=== PATIENT | female | born 2000 | race Caucasian/White ===

== ENCOUNTER 2023-08-01 11:28 | Emergency (ER) | payer MEDICAID, SELFPAY ==
[2023-08-01 11:39] VITALS: PULSE 66; RESP 20; TEMP 36.2; O2SAT 100
== END 2023-08-01 12:14 | disposition left against medical advice (07) ==
LOC: ANHED 12:04
DX: R10.31 Right lower quadrant pain (principal)
CPT/HCPCS: 99199

== ENCOUNTER 2023-08-11 00:20 | Emergency (ER) | payer BC, OTHER, SELFPAY ==
[2023-08-11 00:21] VITALS: BP 121/61; PULSE 62; RESP 15; TEMP 36.3; O2SAT 100
[2023-08-11 03:37] VITALS: BP 111/61; PULSE 71; RESP 15; O2SAT 100
[2023-08-11 03:46] LABS: Basophils Absolute Auto 0.1 K/mm3 (0.0-0.1); Basophils Percent Auto 0.7 % (0.2-1.2); Eosinophils Absolute Auto 1.3 K/mm3 (0-0.3); Eosinophils Percent Auto 11.4 % (0-4.4); Hematocrit 41.5 % (37.0-47.0); Hemoglobin 12.9 g/dL (12.0-15.0); Immature Granulocyte Absolute 0.04 K/mm3 (0.00-0.031); Immature Granulocyte Percent A 0.4 % (0-0.5); Lymphocytes Absolute Auto 3.34 K/mm3 (0.9-3.2); Lymphocytes Percent Auto 29.6 % (18.3-44.2); Mean Corpuscular HGB Conc 31.1 g/dl (32-36); Mean Corpuscular Hemoglobin 26.8 pg (26-34); Mean Corpuscular Volume 86.3 fl (80-100); Mean Platelet Volume 10.1 fl (7.4-10.4); Monocytes Absolute Auto 0.7 K/mm3 (0.1-0.6); Monocytes Percent Auto 6.5 % (2.6-8.5); Neutrophils Absolute Auto 5.8 K/mm3 (1.3-6.7); Neutrophils Percent Auto 51.4 % (45.5-73.1); Platelet Count Result 296 k/mm3 (150-375); Red Blood Count 4.81 M/mm3 (4.2-5.4); Red Cell Distribution Width 14.6 % (11.5-14.5); White Blood Count 11.3 K/mm3 (4.5-10.0)
[2023-08-11 03:48] LABS: Appearance Urine Clear (Clear); Bilirubin Urine Negative (Negative); Blood Urine Negative (Negative); Color Urine Yellow (Yellow); Glucose Urine UA Negative (Negative); Ketones Urine Negative (Negative); Leukocyte Esterase Ur Negative LEU/UL (Negative); Nitrate Urine Negative (Negative); Protein Urine Negative (Negative); Specific Grav Ur 1.027 (1.001-1.035); pH Urine 6.5 (5.0-9.0)
[2023-08-11 03:49] LABS: Add Urine Microscopic? NO
[2023-08-11 04:14] LABS: Beta HCG Quantitative < 2.39 mIU/ML
[2023-08-11 04:27] LABS: Alanine Aminotransferase 22 U/L (6-35); Albumin Level 4.1 g/dL (3.5-5.1); Alkaline Phosphatase 28 U/L (38-126); Anion Gap 5 mmol/L (8-16); Aspartate Amino Transferase 27 U/L (14-36); Bilirubin,Total 0.4 mg/dL (0.2-1.3); Blood Urea Nitrogen 22 mg/dL (7-17); Calcium 9.3 mg/dL (8.4-10.2); Carbon Dioxide 27 mmol/L (22-30); Chloride 105 mmol/L (98-107); Estimated CRCL calculation 109 ml/min; Estimated Glomerular Filt Rate > 60; Glucose 80 mg/dL (65-110); Lipase 91 U/L (23-300); Potassium 4.3 mmol/L (3.4-5.0); Sodium 137 mmol/L (137-145)
[2023-08-11 05:43] VITALS: BP 106/65; PULSE 78; RESP 20; O2SAT 98
--- NOTE | 2023-08-11 05:49 | ED.GENADULT ---
HPI - General Adult General Chief complaint: Abdominal Pain Stated complaint: RLQ abd pain, 2 positive preg tests at home Time Seen by Provider: 08/11/23 05:28 History of Present Illness HPI narrative: patient is a 23-year-old female who presents emergency department with chief complaint of right lower quadrant abdominal pain. Patient reports that she has been having discomfort in the right lower area of her abdomen and reports that pain is sharp patient reports that she performed 2 at-home test that were positive. The patient does report that she has had miscarriages before in the past and also has history of PCOS Related Data Allergies Allergy/AdvReac Type Severity Reaction Status Date / Time amoxicillin Allergy Mild Nausea Verified 11/05/17 21:28 clavulanic acid Allergy Mild Nausea Verified 11/05/17 21:28 ziprasidone Allergy Unknown VOMITING/RA Verified 11/05/17 21:28 SH doxycycline AdvReac Other Verified 08/11/23 00:35 AMOXICILLIN TRIHYDRATE Allergy Unknown Nausea and Uncoded 08/11/23 00:35 Vomiting Review of Systems Review of Systems: A 10 system review of systems was completed on the patient and is negative except for what is stated in the HPI. Nursing and ancillary documentation was reviewed. Exam Narrative: GENERAL: Well-appearing, well-nourished, and in no acute distress. HEAD: Normocephalic, atraumatic. EYES: PERRLA and EOMI. ENT: Nares clear, no rhinorrhea or epistaxis. Mucous membranes moist. NECK: Supple. CHEST: Clear to auscultation. No respiratory distress. HEART: Regular rate and rhythm. No murmur heard. Normal peripheral pulses. ABDOMEN: Soft, tenderness to palpation of the right lower quadrant, nondistended, normal active bowel sounds. EXTREMITIES: Normal range of motion. No edema. SKIN: Warm, dry, no rash. NEURO: No focal deficits. Alert and oriented x3. PSYCH: Normal mood and affect. Course Vital Signs Vital signs: Vital Signs Temperature 36.3 C L 08/11/23 00:21 Pulse Rate 62 08/11/23 00:21 Respiratory Rate 15 08/11/23 00:21 Blood Pressure 121/61 08/11/23 00:21 Pulse Oximetry 100 08/11/23 00:21 Oxygen Delivery Room Air 08/11/23 00:21 Temperature 36.3 C L 08/11/23 00:21 Pulse Rate 78 08/11/23 05:43 Respiratory Rate 20 08/11/23 05:43 Blood Pressure 106/65 08/11/23 05:43 Pulse Oximetry 98 08/11/23 05:43 Oxygen Delivery Room Air 08/11/23 00:21 Medical Decision Making MDM Narrative Medical decision making narrative: differential diagnosis includes appendicitis, diverticulitis, colitis, ovarian cyst, ovarian torsion, , ectopic laboratory studies were obtained on the patient showed a bedside test is negative and a serum HCG of negative. White blood cell count was 11.3 electrolytes are within normal limits liver enzymes showed a normal bilirubin normal AST normal ALT and normal alkaline phosphatase lipase is normal at 91 urinalysis was negative given the patient is not plan was to perform a CT scan of the abdomen pelvis did her right lower quadrant abdominal tenderness. The patient states that she knows this is her ovarian cyst and reports that she does not want to stay for a CT scan. The patient was advised that she should stay for to evaluate as this could be a potentially surgical problem or potentially life-threatening problem. The patient expressed understanding this and will be leaving against medical advice Vital Signs Vital Signs: Vital Signs Temperature 36.3 C L 08/11/23 00:21 Pulse Rate 62 08/11/23 00:21 Respiratory Rate 15 08/11/23 00:21 Blood Pressure 121/61 08/11/23 00:21 Pulse Oximetry 100 08/11/23 00:21 Oxygen Delivery Room Air 08/11/23 00:21 Temperature 36.3 C L 08/11/23 00:21 Pulse Rate 78 08/11/23 05:43 Respiratory Rate 20 08/11/23 05:43 Blood Pressure 106/65 08/11/23 05:43 Pulse Oximetry 98 08/11/23 05:43 Oxygen De
== END 2023-08-11 06:07 | disposition left against medical advice (07) ==
PROVIDERS: Emergency Provider Emergency Medicine
DX: R10.31 Right lower quadrant pain (principal); Z32.02 Encounter for pregnancy test, result negative
CPT/HCPCS: 36415; 80053; 81003; 81025; 83690; 84702; 85025; 99283

== ENCOUNTER 2023-10-17 15:24 | Emergency (ER) | payer BC, OTHER, SELFPAY ==
--- NOTE | ~2023-10-17 | XR_ITS ---
EXAMINATION: XR chest 2V DATE: 10/17/2023 16:52 INDICATION: Cough. TECHNIQUE: Frontal and lateral views of the chest were obtained. COMPARISON: None. FINDINGS: There is mild atelectasis in right middle lobe. No pleural effusion or pneumothorax. The he art size is normal. IMPRESSION: 1. Mild atelectasis in right middle lobe. Reviewed, dictated and finalized at location E.
--- NOTE | ~2023-10-17 | US_ITS ---
EXAMINATION: US pelvic complete w TV DATE: 10/17/2023 21:11 INDICATION: Left ovarian mass. TECHNIQUE: Multiple transabdominal and transvaginal sonographic images of the pelvis were obtained. COMPARISON: CT abdomen and pelvis 10/17/2023 FINDINGS: TRANSABDOMINAL ULTRASOUND: The uterus measures 8.1 x 3.9 x 3.6 cm. There is no free fluid in the pelvis. TRANSVAGINAL ULTRASOUND: The endometrial complex measures 8 mm in thickness. The right ovary measures 2.9 x 2.5 x 2.1 cm. The left ovary measures 4.8 x 3.7 x 4.1 cm. There is a 3.7 cm mass of mixed echogenicity in left ovary. T here is normal vascular flow in the ovaries. IMPRESSION: 1. 3.7 cm mass in left ovary, most likely a hemorrhagic cyst. Pelvis ultrasound is recommended in 6-1 2 weeks. Reviewed, dictated and finalized at location E. IMPRESSION: 1. 3.7 cm mass in left ovary, most likely a hemorrhagic cyst. Pelvis ultrasound is recommended in 6-12 weeks.
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
[2023-10-17 15:30] VITALS: BP 138/88; PULSE 115; RESP 20; TEMP 36.3; O2SAT 95
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
[2023-10-17] MEDS: ONDANSETRON INJ 4 MG/2 ML VIAL IV PUSH (16:37)
[2023-10-17] MEDS: MORPHINE SULFATE (*CRX) 4 MG/ML INJ IV PUSH ×3 (16:37→21:38)
[2023-10-17 16:38] LABS: Basophils Percent Auto 0.3 % (0.2-1.2); Eosinophils Absolute Auto 0.1 K/mm3 (0-0.3); Eosinophils Percent Auto 1.9 % (0-4.4); Hematocrit 37.4 % (37.0-47.0); Hemoglobin 11.6 g/dL (12.0-15.0); Immature Granulocyte Absolute 0.02 K/mm3 (0.00-0.031); Immature Granulocyte Percent A 0.3 % (0-0.5); Lymphocytes Percent Auto 27.9 % (18.3-44.2); Mean Corpuscular Hemoglobin 25.3 pg (26-34); Mean Corpuscular Volume 81.7 fl (80-100); Mean Platelet Volume 9.7 fl (7.4-10.4); Monocytes Absolute Auto 0.5 K/mm3 (0.1-0.6); Monocytes Percent Auto 7.2 % (2.6-8.5); Neutrophils Absolute Auto 4.2 K/mm3 (1.3-6.7); Neutrophils Percent Auto 62.4 % (45.5-73.1); Platelet Count Result 401 k/mm3 (150-375); Red Blood Count 4.58 M/mm3 (4.2-5.4); Red Cell Distribution Width 13.4 % (11.5-14.5); White Blood Count 6.8 K/mm3 (4.5-10.0)
[2023-10-17 16:48] LABS: INR 0.9; Prothrombin Time 12.7 Seconds (11.1-14.7)
[2023-10-17 16:49] LABS: Lactic Acid Reflex 1.3 mmol/L (0.7-2.0); Partial Thromboplastin Time 33.1 Seconds (22.3-36.8)
[2023-10-17 16:56] LABS: Alanine Aminotransferase 16 U/L (6-35); Albumin Level 4.3 g/dL (3.5-5.1); Alkaline Phosphatase 29 U/L (38-126); Anion Gap 10 mmol/L (4-12); Aspartate Amino Transferase 21 U/L (14-36); Bilirubin,Total 0.4 mg/dL (0.2-1.3); Blood Urea Nitrogen 16 mg/dL (7-17); CRP 3.8 mg/dL (<1.0); Calcium 9.8 mg/dL (8.4-10.2); Carbon Dioxide 27 mmol/L (22-30); Chloride 105 mmol/L (98-107); Estimated CRCL calculation 132 ml/min; Estimated Glomerular Filt Rate > 60; Glucose 110 mg/dL (65-110); Lipase 101 U/L (23-300); Potassium 3.9 mmol/L (3.4-5.0); Sodium 142 mmol/L (137-145)
[2023-10-17 17:13] LABS: Influenza A QL RT-PCR Negative (Negative); Influenza B QL RT-PCR Negative (Negative); RSV RNA, RT-PCR Negative (Negative); SARS-CoV-2 RNA PCR Negative (Negative)
[2023-10-17] MEDS: HYDROmorphone HCL INJ (*CRX) 1 MG/ML SYR IV PUSH ×2 (17:44→19:40)
[2023-10-17] MEDS: LACTATED RINGERS 1,000 ML 999 ML IV CONT (17:44)
[2023-10-17 18:46] VITALS: BP 142/83; PULSE 75; RESP 3; O2SAT 96
[2023-10-17 18:46] LABS: SPREG INTERNAL CONTROL Positive; Serum Qual hCG Negative
[2023-10-17 19:01] VITALS: BP 127/74; PULSE 71; RESP 16; O2SAT 100
[2023-10-17 20:13] LABS: Appearance Urine Turbid (Clear); Bacteria Urine 4+ /hpf; Bilirubin Urine Negative (Negative); Blood Urine Negative (Negative); Calcium Oxalate Crystals Urine Present /hpf; Color Urine Yellow (Yellow); Glucose Urine UA Negative (Negative); Ketones Urine Negative (Negative); Leukocyte Esterase Ur Trace LEU/UL (Negative); Need Manual Microscopic Reviewed; Nitrate Urine Negative (Negative); Protein Urine Trace mg/dL (Negative); Specific Grav Ur 1.026 (1.001-1.035); Squamous Epithelial Cell Urine Many /hpf (Few); Urobilinogen Urine 0.2 mg/dL (<2.0); WBC Urine 21-50 /hpf (0-3); pH Urine 7.5 (5.0-9.0)
[2023-10-17 20:18] LABS: Add Urine Microscopic? YES
[2023-10-17 22:00] VITALS: BP 128/78; PULSE 92; RESP 15; O2SAT 100
== END 2023-10-17 22:02 | disposition home or self-care (01) ==
PROVIDERS: Student in an Organized Health Care Education/Training Program; Emergency Provider Emergency Medicine
DX: N83.202 Unspecified ovarian cyst, left side (principal); Z48.02 Encounter for removal of sutures; S39.0 Injury of muscle, fascia and tendon of abdomen, lower back and pelvis; V49.9XXD Car occupant (driver) (passenger) injured in unspecified traffic accident, subsequent encounter; Z11.52 Encounter for screening for COVID-19
CPT/HCPCS: 15853; 36415; 71046; 74177; 76830; 76856; 80053; 81001; 83605; 83690; 84703; 85025; 85610; 85730; 86140; 87040; 87086; 87637; 96361; 96374; 96375; 96376; 99284; J1170; J2270; J2405; J7120; Q9967

== ENCOUNTER 2024-03-16 21:16 | Emergency (ER) | payer BC, OTHER, SELFPAY | END 2024-03-16 21:36 | disposition left against medical advice (07) | LOC: ANHED 21:34 | DX: Z53.21 Procedure and treatment not carried out due to patient leaving prior to being seen by health care provider (principal) | CPT/HCPCS: 99199 ==

== ENCOUNTER 2024-09-15 10:06 | Emergency (ER) | payer OTHER, SELFPAY ==
--- NOTE | ~2024-09-15 | XR_ITS ---
EXAMINATION: XR chest 2V DATE: 09/15/2024 12:15 INDICATION: Cough. Flu. TECHNIQUE: Frontal and lateral views of the chest were obtained. COMPARISON: Chest 2 views 10/17/2023 FINDINGS: There are airspace opacities in left lower lobe, consistent with pneumonia. No pleural effu jacquelyn or pneumothorax. The heart size is normal. IMPRESSION: 1. Left lower lobe pneumonia. Reviewed, dictated and finalized at location L.
[2024-09-15 10:11] VITALS: BP 118/82; PULSE 103; RESP 22; TEMP 37.4; O2SAT 99
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
--- OUTSIDE RECORDS SUMMARY | 2024-09-15 10:48 | XMS_ITS | Clinical Summary ---
Author Organization [facility] Address [address] [place] [address] Phone Care Team Providers Care Wash House Worker Name Role Phone Chelsie Parra LAYDOWN MACHINE OPERATOR, ESTIMATOR PAPERBOARD BOXES Primary Care Provider + Allergies Active Allergy Reactions Criticality Noted Date Comments Amoxicillin Rash,Hives 12/23/2017 Reaction: hives, , Amoxicillin-Pot Clavulanate Anxiety,Rash,Swelling Medium 2002 Bee Venom Anaphylaxis High 02/10/2019 Doxycycline Hives,Other (see Comments) Medium 09/30/2023 Skin sensitivity, burning Ziprasidone Rash 12/23/2017 Ziprasidone Hcl Hives,Swelling Medium 03/09/2018 Medications acetaminophen (TYLENOL) 325 MG Tablet Take 650 mg by mouth every 4 hours as needed for Mild or more severe pain. 09/25/2023 Active hydrOXYzine (ATARAX) 25 MG TabletIndicatio ns:Anxiety Take 1 Tablet by mouth every 6 hours as needed for Anxiety. 90 Tablet 02/22/2024 Active Benzonatate 200 MG Capsule Take 1 Capsule by mouth 3 times daily as needed for Cough for up to 14 days. 42 Capsule 09/10/2024 09/25/19 25 Active predniSONE (DELTASONE) 20 MG Tablet Take 1 Tablet by mouth 2 times daily for 5 days. 10 Tablet 09/10/2024 09/16/19 25 Active ondansetron (ZOFRAN) 4 MG TabletIndicatio ns:Nausea and Vomiting Take 1 Tablet by mouth every 8 hours as needed for Nausea - 1st line. Indications: Nausea and Vomiting 10 Tablet 09/10/2024 Active Active Problems Problem Noted Date Diagnosed Date Adjustment disorder with mixed anxiety and depre ssed mood 02/16/2024 Encounters Date Type Department Care Team Description 09/10/2024 4:06 PM CDT - 09/10/2024 5:38 PM CDT Emergency [facility] Emergency [address] [place] [address] [place] May, PAC Influenza B Discharge Disposition: Discharged to home or Selfcare 09/10/2024 Travel from Last 3 Months Immunizations Immunization Administration Dates Next Due Covid-19, Mrna, Lnp-s, Pf, 3 0 Mcg/0.3 Ml Dose (XillianTV) 12/20/2020,11/29/2020 DTAP VACCINE 06/20/2007, 3,2002,08/29 DTAP VACCINE, 5 PERTUSSIS AN TIGENS, VACCINE IM 06/20/2007,11/27/2003,01/25/2003,10/24,2002 HEP B/HIB Combined Vaccine 2002,2002 HIB Vaccine (PRP-T) 11/26/2006, 3,2002,08/29 Hepatitis A Vaccine, Pediatric/adolescent, 2 Dose Schedule 06/20/2007,10/10/2005 Hepatitis A, Pediatric, Unsp ecified Formulation 06/20/2007,10/10/2005 Hepatitis B Vaccine, Pediatric/adolescent 10/10/2005,11/27/2003,01/25/2003,10/24,2002,2002 Human Papillomavirus (HPV) 9 -valent Vaccine 08/15/2018,03/28/2018,01/16/2014 Human Papillomavirus Vaccine (HPV), quadrivalent 01/16/2014 Inactivated Polio Vaccine 06/20/2007,,2002,08/29 Influenza Vaccine, Quadrivalent, PF 03/29/2020,0 03/28/2018 MMR Vaccine 06/20/2007,11/27/2003 Meningococcal MCV4O 02/10/2019 Meningococcal Polysaccharide Vaccine (MPSV4) 07/11/2018 Meningococcal Vaccine 07/11/2018,01/16/2014 Pneumococcal Vaccine - 13 Valent 01/25/2003,/08/2002,2002 Pneumococcal Vaccine Adult - 23 Valent 0 Pneumococcal Vaccine Peds - 7 Valent 2002, 2002 TDAP Vaccine 01/16/2014 Varicella Vaccine Live 06/20/2007,11/27/2003 Family History Medical History Relation Name Comments No Known Problems Brother 1 No Known Problems Brother 2 No Known Problems Brother 3 Alcohol Abuse Father Drug Abuse Father Seizures Father Thyroid Disease Mother No Known Problems Sister 1 No Known Problems Sister 2 No Known Problems Sister 3 Relation Name Status Comments Brother 1 Alive Brother 2 Alive Brother 3 Alive Brother 4 Alive Father Mother Alive Sister 1 Alive Sister 2 Alive Sister 3 Alive Social History Tobacco Use Types Packs/Day Years Used Date Smoking Tobacco: Never Smokeless Tobacco: Never Alcohol Use Standard Drinks/Week Comments Yes 0 (1 standard drink = 0.6 oz pure alcohol) Occasionally, 3-4 times per month, [place] mo[facility] QuadROIities Answer Date Recorded In the past 12 months has PVPower, gas, oil, or water [employer] threatened to shut off services in your home? Yes 01/30/2024 Social Connection and Isolat ion Panel [NHANES] Answer Date Recorded In a typical week, how many times do you talk on the phone with family, friends, or neighbors? Twice a week 01/30/2024 How often do you get togethe r with friends or relatives? More than three times a week 01/30/2024 How often do you attend chur or denominational services? More than 4 times per year 01/30/2024 Do you belong to any clubs o r organizations such as mormon groups, unions, fraternal or athletic groups, or school groups? No 01/30/2024 How often do you attend meet ings of the clubs or organizations you belong to? Never 01/30/2024 Are you , , di vorced, , never , or living with a partner? Never 01/30/2024 AUDIT-C Answer Date Recorded Q1: How often do you have a drink containing alc ohol? 2-4 times a month 01/30/2024 Q2: How many drinks containi ng alcohol do you have on a typical day when you are drinking? 5 or 6 01/30/2024 Q3: How often do you have si x or more drinks on one occasion? Monthly 01/30/2024 Overall Financial Resource Strain (CARDIA) Answe r Date Recorded How hard is it for you to pa y for the very basics like food, housing, medical care, and heating? Very hard 01/30/2024 [facility] - Occupational Stress Questionnaire Answer Date Recorded Do you feel stress - tense, restless, nervous, or anxious, or unable to sleep at night because your mind is troubled all the time - these days? Very much 01/30/2024 Exercise Vital Sign Answer Date Recorde d On average, how many days pe r week do you engage in moderate to strenuous exercise (like a brisk walk)? 7 days 01/30/2024 On average, how many minutes do you engage in exercise at this level? 30 min 01/30/2024 Hunger Vital Sign Answer Date Recorded Within the past 12 months, y ou worried that your food would run out before you got the money to buy more. Often true 01/30/20 24 Within the past 12 months, t he food you bought just didn't last and you didn't have money to get more. Often true 01/30/2024 PRAPARE - Transportation Answer Date Re corded In the past 12 months, has l ack of transportation kept you from medical appointments or from getting medications? Yes 01/03 In the past 12 months, has l ack of transportation kept you from meetings, work, or from getting things needed for daily living? No 01/30/2024 Housing Stability Vital Sign Answer Harvinder e Recorded In the last 12 months, was t here a time when you were not able to pay the mortgage or rent on time? Yes 01/30/2024 In the past 12 months, how m any times have you moved where you were living? 5 01/30/2024 At any time in the past 12 m [facility], were you homeless or living in a mcc (including now)? Yes 01/30/2024 Sexually Active Control Partners Comments Yes Male Comments Unknown Sex and Gender Information Value Date Recorded Sex Assigned at Female 02/23/2024 11:16 AM CDT Legal Sex Female 5:43 PM CDT Gender Identity Female 02/23/2024 11:16 AM CDT Sexual Orientation Bisexual 02/23/2024 11 :16 AM CDT Last Filed Vital Signs Vital Sign Reading Time Taken Comments Blood Pressure 116/69 09/10/2024 5:35 PM CDT Pulse 112 09/10/2024 5:35 PM CDT Temperature 39.4 C (102.9 F) 09/10/2024 5:35 PM CDT Respiratory Rate 18 09/10/2024 5:35 PM CDT Oxygen Saturation 99% 09/10/2024 5:35 PM CDT Inhaled Oxygen Concentration - - Weight 98.9 kg (218 lb) 09/10/2024 4:06 PM CDT Height 165.1 cm (5' 5 ) 09/10/2024 4:06 PM CDT Body Mass Index 36.28 09/10/2024 4:06 PM CDT Plan of Treatment Health Maintenance Due Date Last Done Comments Meningococcal B Immunization (1 of 2 - Standard) 2018 Pap Smear 2023 DTaP/Tdap/Td Immunization (7 - Td or Tdap) 01/17/2024 01/16/2014, 06/20/2007, 06/20/2007, Additional history exists Influenza Immunization (#1) 2024 03/29/2020, 0 03/28/2018 SARS-COV-2 Immunization (3 - season) 2024 12/20/2020, 11/29/2020 Respiratory Syncytial Virus (RSV) Immunization (Adult) (1 - 1-dose 75+ series) 2077 Hepatitis B Immunization Completed 006, 11/27/2003, 01/25/2003, Additional history exists Human Papillomavirus (HPV) Immunization Completed 08/15/2018, 03/28/2018, 01/16/2014, Additional history exists Meningococcal Immunization (ACWY) Completed 02/10/2019, 07/11/2018, 07/11/2018, Additional history exists Pneumococcal Immunization Combined Aged Out 03/29/2020, 01/25/2003, 2002, Additional history exists No longer eligible based on patient's age to complete this topic Hepatitis C Virus (HCV) Screening Completed 02/22/2024 Rotavirus Immunization Aged Out No lo nger eligible based on patient's age to complete this topic Procedures Procedure Name Priority Date/Time Associated Diagnosis Comments GROUP A STREP BY PCR STAT 09/10/2024 4:15 PM CDT RSV,SARS-COV-2,INFL UENZA A&B BY PCR STAT 09/10/2024 4:15 PM CDT HEPATITIS C ANTIBODY Routine 02/22/2024 3:11 PM CDT Need for hepatitis C screening test from Last 3 Months or Most Recently Relevant to Health Maintenance Results * GROUP A STREP BY PCR (09/10/2024 4:15 PM CDT) Pathologist [facility] GROUP A STREP BY PCR NOT DETECTED NOT DETECTED 09/10/2024 5:08 PM CDT [facility] Swab STRUCTURE OF ANTERIOR PORTION OF NECK / Unknown Non-Phlebotomy Collection / Unknown 09/10/2024 4:15 PM CDT 09/10/2024 4:33 PM CDT us Milan May PAC MICROBIOLOGY - GENER AL ORDERABLES Final Result [facility] [address] [place] [address] * (ABNORMAL) RSV,SARS-COV-2,INFLUENZA A&B BY PCR (09/10/2024 4:15 PM CDT) FLU A Negative Negative, Error 09/10/2024 5:15 PM CDT [facility] FLU B Positive(A) Negative 09/10/2024 5:15 PM CDT [facility] RESP SYNC VIRUS Negative Negative 5:15 PM CDT [facility] SARSCOV2 NOT DETECTED (Reference Range for this test is Not Detected) 09/10/2024 5:15 PM CDT [facility] Comment:This test was perfor med by a Reverse Video Game Animator PCR Method. Swab NASOPHARYNGEAL STRUCTURE / Unknown Non-Phlebotomy Collection / Unknown 09/10/2024 4:15 PM CDT 09/10/2024 4:33 PM CDT Milan May PAC MICROBIOLOGY - GENER AL ORDERABLES Final Result Performing Organization Address City/[facility]/ZIP Co de Phone Number [facility] [address] [place] [address] * HEPATITIS C ANTIBODY (02/22/2024 3:11 PM CDT) hepatitis C antibody 0.07 <1 S/CO 02/22/2024 9:29 PM CDT [facility] Comment: Signal/Cutoff ratio < 0.79 is Nondetected Signal/Cutoff ratio 0.80-0.99 is Grayzone Signal/Cutoff ratio > 0.99 is Detected Supplemental assays are recommended if signal/cutoff ratio is >/=1.00. Signal/cutoff ratio result >/= 5.00 is 97% predictive of positivity for recombinant immunoblot assay (RIBA) and will be reported to the [place] Department of Public Health as required. Blood Venipuncture / Unknown 02/22/2024 3:11 PM CDT 02/22/2024 3:15 PM CDT Chelsie Parra LAYDOWN MACHINE OPERATOR, ESTIMATOR PAPERBOARD BOXES CHEMISTRY ORDERABLES Fin al Result Performing Organization Address City/[facility] Co de Phone Number [facility] [address] [place] [address], from Last 3 Months or Most Recently Relevant to Health Maintenance Additional Health Concerns Infection Onset Date Last Indicated Influenza 09/10/2024 09/10/2024 Insurance MEDICAID [place] Care Teams Wash House Worker Relationship Specialty Start Date End Date Chelsie Parra, LAYDOWN MACHINE OPERATOR, ESTIMATOR PAPERBOARD BOXES [address] [place] [address] PCP - General Advanced Practice Nurse 12/27/23
--- OUTSIDE RECORDS SUMMARY | 2024-09-15 10:48 | XMS_ITS | Clinical Summary ---
Author Organization [facility] Address [address] [place] [address] Care Team Providers Care Senior Patient Account Representative Name Role Phone Provider, No Pcp Primary Care Provider Unavailab le Source Comments [facility],non-owned Affiliates and Associated Physician Practices is amultiple site organization consisting of ambulatory clinics and hospital sitesin [place], [place], [place] and [place]. This disclosure is being madepursuant to the Care Everywhere program and may not contain all information available regarding this patient. Last updated 18.[facility] Allergies Active Allergy Reactions Criticality Noted Date [...] Conj 01/25/2003 TDAP (7yrs+) 01/16/2014 VARICELLA 06/20/2007,11/27/2003 Family History Medical History Relation Name Comments Cholelithiasis Mother IBS Mother Cancer - Breast Other 1 MGM's sister Cancer - Breast Other 2 Mother's pat ernal aunt Relation Name Status Comments Mother Other 1 Other 2 Social History Tobacco Use Types Packs/Day Years [...] Date Recorded PHQ2 TOTAL SCORE 2 08/16/2021 [facility] - Occupational Stress [...] place to sleep or slept in a care home (including now)? Yes 09/17/2023 Sex and Gender Information Value Date Recorded Sex Assigned at Female 08/16/2021 9:43 AM PROJECT MANAGER FINANCE Gender Identity Female 08/16/2021 9:43 AM PROJECT MANAGER FINANCE Sexual Orientation Bisexual 08/16/2021 9: 43 AM PROJECT MANAGER FINANCE Last Filed Vital Signs Vital Sign Reading [...] Mass Index 40.04 09/17/2023 1:44 AM CDT Plan of Treatment Health Maintenance Due Date Last Done Comments PAP SMEAR 2002 HIV SCREENING 2017 MENINGOCOCCAL (Group B) VACC INE SHARED DECISION-MAKING (1 of 2 - Standard) 2018 HEPATITIS C SCREENING 06/16/2020 CHLAMYDIA/GONORRHEA SCREENING 10/17/2022, 08/20/2021, 09/02/2016 DTAP/TDAP/TD VACCINES (7 - T d or Tdap) 01/17/2024 01/16/2014, 06/20/2007, 11/27/2003, Additional history exists COVID-19 VACCINE (3 - 2023-2 5 season) 2024 12/20/2020, 11/29/2020 INFLUENZA VACCINE (#1) 2024 03/29/2020, 2017 PNEUMOCOCCAL VACCINE (2 of 2 - PCV20 or PCV21) 2052 03/29/2020, 01/25/2003, 2002, Additional history exists ZOSTER VACCINE (1 of 2) 2052 HEPATITIS B VACCINE Completed 10/10/2005, 11/27/2003, 01/25/2003, Additional history exists HIB VACCINE Completed 11/26/2006, 01/03, 2002, Additional history exists HPV VACCINE Completed 08/15/2018, 03/06, 01/16/2014 MENINGOCOCCAL GROUPS A/C/Y/W VACCINE Completed 02/10/2019, 07/11/2018, 01/16/2014 Procedures Procedure Name Priority Date/Time Associated [...] Resulting Agency Comment Lab Testing performed at: [address] [id number] Tonie Garcia MD LAB - MICROBIOLOGY O RDERABLES [facility] INSURANCE BILL [address] [place] [address] from Last 3 Months or Most Recently Relevant to Health Maintenance Advance Directives * Full Code (Latest Code Status on File) Date Activated Date Inactivated Comments 09/17/2023 7:49 AM 09/25/2023 11:43 AM * Full Code Date Activated Date Inactivated Comments 09/17/2023 3:28 AM 09/17/2023 3:29 AM * Full Code Date Activated Date Inactivated Comments 09/08/2023 5:46 PM 09/11/2023 10:57 AM Care Teams Senior Patient Account Representative Relationship Specialty Start Date End Date Provider, No Pcp PCP - General 09/08/23
--- OUTSIDE RECORDS SUMMARY | 2024-09-15 10:48 | XMS_ITS | Patient Health Summary ---
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 evidence of active contrast extravasation, and the right lower quadrant, just posterior and inferior to the appendix, and associated with a traumatic lumbar hernia. No discrete evidence of colonic wall thickening. However, fluid abuts the cecum. There is subtle colonic wall thickening and pericolonic fat stranding involving the descending colonic and sigmoid junction (series 5 images 106-122) associated small volume retroperitoneal hemorrhage overlying the psoas musculature is seen within this region no discrete evidence of contrast extravasation is identified on this single phase exam. Subtle mesenteric fat stranding is seen just posterior to the superior mesenteric artery (series 3 images 140-155). There is very subtle contour irregularity to the adjacent superior mesenteric artery (series 3 images 148-155, series 10 image 95). Stranding is also seen within the left retroperitoneal space just above the level of the iliac wing (series 5 image 100-110). Small volume hemorrhage is seen within the pelvis. No free intraperitoneal air is noted. No mesenteric or retroperitoneal lymphadenopathy is identified. The urinary bladder is distended with fluid and demonstrates no acute abnormality. The uterus is anteflexed. No adnexal mass is noted. No free pelvic fluid is noted. No pelvic or inguinal lymphadenopathy is noted. The abdominal aorta is normal in course and caliber. A 2.2 cm left breast hematoma is noted. No evidence of active contrast extravasation is identified.. Subcutaneous fat stranding traversing the left chest obliquely to the right lower quadrant abdominal wall and across the abdominal pannus is consistent with seatbelt sign. There is fat herniation between the external oblique and anterior right pelvic brim, consistent with inferior lumbar hernia. Associated hematoma formation along the subcutaneous tissues and extending along the anterior pelvic brim without evidence of active contrast extravasation. No lytic or blastic lesions are identified. Small osseous fragments at the anterior superior endplates of L2 and L4, favored to represent limbus vertebral bodies. No acute osseous injury. Procedure Note Obed Perez MD - 09/08/2023 EXAMINATION: Computed tomography (CT) of the chest, abdomen, and pelvis with contrast HISTORY: Trauma TECHNIQUE: CT of the chest, abdomen, and pelvis was performed followingthe uneventful administration of Omnipaque 350 intravenous contrastaccording to standard protocol. COMPARISON: None FINDINGS: Chest: A left sided aorta is present. The aorta and main pulmonary artery are normal in course and caliber. No central filling defect is identified on this non-PE protocol study to suggest central pulmonary embolus. No substantial aortic atherosclerosis is noted. No axillary, supraclavicular, mediastinal, or hilar lymphadenopathy is identified. The thyroid enhances homogeneously. The heart is normal in size. No pericardial effusion is seen. No substantial coronary artery atherosclerosis is noted. No confluent consolidation. Patchy ground glass opacities in the medialand posterior bilateral lung bases, and to lesser extent upper lobes, are noted. No pleural effusion is seen. No pneumothorax is identified. The trachea is patent without endobronchial lesion. Pulmonary Nodules: *None Abdomen/Pelvis: The liver enhances homogenously without focal mass/lesion. The mainportal vein is patent and non-dilated. The hepatic veins are patent. The gallbladder is normal. No intra or extra-hepatic biliary dilatation is present. The spleen is within normal limits. The pancreas is normal. The adrenal glands are normal bilaterally. The kidneys enhance symmetrically. No hydronephrosis is present. Norenal stones are identified. No hydroureter is present. No suspicious renalmass is noted. The distal esophagus and stomach are within normal limits. The large and small bowel are normal in course without evidence of obstruction. Thereis no discrete evidence of small bowel injury. There are small areas of mesenteric contusion without evidence of active contrast extravasation,and the right lower quadrant, just posterior and inferior to the appendix,and associated with a traumatic lumbar hernia. No discrete evidence ofcolonic wall thickening. However, fluid abuts the cecum. There is subtle colonic wall thickening and pericolonic fat stranding involving the descending colonic and sigmoid junction (series 5 images 106-122) associated small volume retroperitoneal hemorrhage overlying the psoas musculature isseen within this region no discrete evidence of contrast extravasation is identified on this single phase exam. Subtle mesenteric fat stranding is seen just posterior to the superior mesenteric artery (series 3 images 140-155). There is very subtle contour irregularity to the adjacent superior mesenteric artery (series 3 images 148-155, series 10 image95). Stranding is also seen within the left retroperitoneal space just abovethe level of the iliac wing (series 5 image 100-110). Small volumehemorrhage is seen within the pelvis. No free intraperitoneal air is noted. No mesenteric or retroperitoneal lymphadenopathy is identified. The urinary bladder is distended with fluid and demonstrates no acute abnormality. The uterus is anteflexed. No adnexal mass is noted. No free pelvic fluid is noted. No pelvic or inguinal lymphadenopathy is noted. The abdominal aorta is normal in course and caliber. A 2.2 cm left breast hematoma is noted. No evidence of active contrast extravasation is identified.. Subcutaneous fat stranding traversing the left chest obliquely to the right lower quadrant abdominal wall andacross the abdominal pannus is consistent with seatbelt sign. There is fat herniation between the external oblique and anterior right pelvic brim, consistent with inferior lumbar hernia. Associated hematoma formationalong the subcutaneous tissues and extending along the anterior pelvic brim without evidence of active contrast extravasation. No lytic or blastic lesions are identified. Small osseous fragments atthe anterior superior endplates of L2 and L4, favored to represent limbus vertebral bodies. No acute osseous injury. IMPRESSION: 1.Soft tissue contusions consistent with seatbelt sign. 2.Bilateral areas of small contusion/hematoma formation in the retroperitoneal space, closely associated with the right lumbar herniaand left colonic injury. No evidence of active contrast extravasation onthis single phase exam. 3.Traumatic right inferior lumbar hernia with associated hematomaformation over the right flank. No evidence of active contrast extravasation onthis single phase exam. 4.Short segment colonic wall thickening at the descending colon/sigmoid junction with associated pericolonic fat stranding, concerning forcolonic injury. No discrete evidence of perforation. 5.Small volume fluid abutting the cecum, which is favored to represent sequela of the lumbar hernia. Cecal injury is considered less likely. 6.Contour irregularity of the proximal superior mesenteric artery with adjacent mesenteric fat stranding. No evidence of active contrast extravasation on this single phase exam. This is concerning for acute vascular injury. 7.Small volume hemorrhage within the pelvis, consistent with intra-abdominal injury. 8.Ground glass opacities in the bilateral dependent lungs, which may represent a component of dependent atelectasis and/or contusion in the setting of trauma. Findings verbally relayed to Dr. Radford by Dr. Perez and 1521 on 09/08/2023. > Interpreting Provider: Obed Perez MD on 09/08/2023 3:23 PM Sree Graham MD CT ORDERABLES * CT LUMBAR SPINE WO CONTRAST - T/L-spine trauma, Spine fracture (09/08/2023 2:53 PM INTERNET MARKETING CONSULTANT) Anatomical Region Laterality Modality Spine Computed Tomogra phy 09/08/2023 2:49 PM INTERNET MARKETING CONSULTANT Impressions 09/08/2023 3:09 PM INTERNET MARKETING CONSULTANT IMPRESSION: 1. No acute intracranial process. 2. No evidence of acute fracture in the cervical, thoracic, or lumbar spine. > Interpreting Provider: Brenden Nicole MD on 09/08/2023 3:09 PM Narrative 09/08/2023 3:09 PM INTERNET MARKETING CONSULTANT PROCEDURE: CT HEAD WO CONTRAST, CT LUMBAR SPINE WO CONTRAST, CT THORACIC SPINE WO CONTRAST, CT CERVICAL SPINE WO CONTRAST, DATE/TIME OF EXAM: 09/08/2023 2:54 PM, LOCATION [facility] INDICATION: Trauma ADDITIONAL CLINICAL INFORMATION: Ordering Provider Reason For Exam: Technologist Note: Additional: EXAMINATION: 1. Computed tomography (CT) of the head without contrast 2. CT of the cervical spine without contrast 3. CT of the thoracic spine without contrast 4. CT of the lumbar spine without contrast TECHNIQUE: CT of the head and cervical spine were performed without contrast according to standard protocol. Reformatted axial, sagittal, and coronal images of the thoracic and lumbar spine were obtained by the technologist from a concurrently performed body CT and sent to the workstation for review. COMPARISON: No prior study is available for comparison at the time of this dictation. FINDINGS: Head: No acute intracranial hemorrhage or intra- or extra-axial fluid collections are identified. The ventricles are of normal size, shape, and morphology. The basal cisterns are patent. No mass effect or midline shift is seen. The bianchi-white matter differentiation is normal. Other than mild paranasal sinus disease, the visualized portions of the orbits, paranasal sinuses, and mastoids appear normal. No acute calvarial fracture is identified. Cervical spine: The alignment is normal. The prevertebral soft tissue is normal in thickness. The mineralization of the bones is normal. Vertebral bodies are normal in height without evidence of acute fracture. The craniocervical junction is normal. The intervertebral discs appear normal. The central canal is patent. The facets appear normal. The uncovertebral joints appear normal. No neural foraminal stenosis is seen. No soft tissue abnormality is identified. Thoracic spine: Mild levoscoliosis. The mineralization of the bones is normal. Vertebral bodies are normal in height without evidence of acute fracture. The intervertebral discs appear normal. The central canal is patent. The facets appear normal. No neural foraminal stenosis is seen. No soft tissue abnormality is identified. Lumbar spine: The alignment is normal. The mineralization of the bones is normal. Vertebral bodies are normal in height without evidence of acute fracture. L2 and L4 limbus vertebra. The intervertebral discs appear normal. The central canal is patent. The facets appear normal. No neural foraminal stenosis is seen. No soft tissue abnormality is identified. Procedure Note Brenden Nicole MD - 09/08/2023 PROCEDURE: CT HEAD WO CONTRAST, CT LUMBAR SPINE WO CONTRAST, CTTHORACIC SPINE WO CONTRAST, CT CERVICAL SPINE WO CONTRAST, DATE/TIME OF EXAM: 09/08/2023 2:54 PM, LOCATION [facility] INDICATION: Trauma ADDITIONAL CLINICAL INFORMATION: Ordering Provider Reason For Exam: Technologist Note: Additional: EXAMINATION: 1. Computed tomography (CT) of the head without contrast 2. CT of the cervical spine without contrast 3. CT of the thoracic spine without contrast 4. CT of the lumbar spine without contrast TECHNIQUE: CT of the head and cervical spine were performed without contrast according to standard protocol. Reformatted axial, sagittal,and coronal images of the thoracic and lumbar spine were obtained by the technologist from a concurrently performed body CT and sent to the workstation for review. COMPARISON: No prior study is available for comparison at the time ofthis dictation. FINDINGS: Head: No acute intracranial hemorrhage or intra- or extra-axial fluidcollections are identified. The ventricles are of normal size, shape, andmorphology. The basal cisterns are patent. No mass effect or midline shift is seen.The bianchi-white matter differentiation is normal. Other than mild paranasal sinus disease, the visualized portions of the orbits, paranasal sinuses, and mastoids appear normal. No acute calvarial fracture is identified. Cervical spine: The alignment is normal. The prevertebral soft tissue is normal in thickness. The mineralization of the bones is normal. Vertebral bodiesare normal in height without evidence of acute fracture. The craniocervical junction is normal. The intervertebral discs appear normal. The central canal is patent. The facets appear normal. The uncovertebral jointsappear normal. No neural foraminal stenosis is seen. No soft tissue abnormality is identified. Thoracic spine: Mild levoscoliosis. The mineralization of the bones is normal. Vertebral bodies are normal in height without evidence of acute fracture. The intervertebral discs appear normal. The central canal is patent. Thefacets appear normal. No neural foraminal stenosis is seen. No soft tissue abnormality is identified. Lumbar spine: The alignment is normal. The mineralization of the bones is normal. Vertebral bodies are normal in height without evidence of acutefracture. L2 and L4 limbus vertebra. The intervertebral discs appear normal. The central canal is patent. The facets appear normal. No neural foraminal stenosis is seen. No soft tissue abnormality is identified. IMPRESSION: 1. No acute intracranial process. 2. No evidence of acute fracture in the cervical, thoracic, or lumbar spine. > Interpreting Provider: Brenden Nicole MD on 09/08/2023 3:09 PM Sree Graham MD CT ORDERABLES * CT THORACIC SPINE WO CONTRAST - T/L-spine trauma, spine fracture (09/08/2023 2:53 PM INTERNET MARKETING CONSULTANT) Anatomical Region Laterality Modality Spine Computed Tomogra phy 09/08/2023 2:49 PM INTERNET MARKETING CONSULTANT Impressions 09/08/2023 3:09 PM INTERNET MARKETING CONSULTANT IMPRESSION: 1. No acute intracranial process. 2. No evidence of acute fracture in the cervical, thoracic, or lumbar spine. > Interpreting Provider: Brenden Nicole MD on 09/08/2023 3:09 PM Narrative 09/08/2023 3:09 PM INTERNET MARKETING CONSULTANT PROCEDURE: CT HEAD WO CONTRAST, CT LUMBAR SPINE WO CONTRAST, CT THORACIC SPINE WO CONTRAST, CT CERVICAL SPINE WO CONTRAST, DATE/TIME OF EXAM: 09/08/2023 2:54 PM, LOCATION [facility] INDICATION: Trauma ADDITIONAL CLINICAL INFORMATION: Ordering Provider Reason For Exam: Technologist Note: Additional: EXAMINATION: 1. Computed tomography (CT) of the head without contrast 2. CT of the cervical spine without contrast 3. CT of the thoracic spine without contrast 4. CT of the lumbar spine without contrast TECHNIQUE: CT of the head and cervical spine were performed without contrast according to standard protocol. Reformatted axial, sagittal, and coronal images of the thoracic and lumbar spine were obtained by the technologist from a concurrently performed body CT and sent to the workstation for review. COMPARISON: No prior study is available for comparison at the time of this dictation. FINDINGS: Head: No acute intracranial hemorrhage or intra- or extra-axial fluid collections are identified. The ventricles are of normal size, shape, and morphology. The basal cisterns are patent. No mass effect or midline shift is seen. The bianchi-white matter differentiation is normal. Other than mild paranasal sinus disease, the visualized portions of the orbits, paranasal sinuses, and mastoids appear normal. No acute calvarial fracture is identified. Cervical spine: The alignment is normal. The prevertebral soft tissue is normal in thickness. The mineralization of the bones is normal. Vertebral bodies are normal in height without evidence of acute fracture. The craniocervical junction is normal. The intervertebral discs appear normal. The central canal is patent. The facets appear normal. The uncovertebral joints appear normal. No neural foraminal stenosis is seen. No soft tissue abnormality is identified. Thoracic spine: Mild levoscoliosis. The mineralization of the bones is normal. Vertebral bodies are normal in height without evidence of acute fracture. The intervertebral discs appear normal. The central canal is patent. The facets appear normal. No neural foraminal stenosis is seen. No soft tissue abnormality is identified. Lumbar spine: The alignment is normal. The mineralization of the bones is normal. Vertebral bodies are normal in height without evidence of acute fracture. L2 and L4 limbus vertebra. The intervertebral discs appear normal. The central canal is patent. The facets appear normal. No neural foraminal stenosis is seen. No soft tissue abnormality is identified. Procedure Note Brenden Nicole MD - 09/08/2023 PROCEDURE: CT HEAD WO CONTRAST, CT LUMBAR SPINE WO CONTRAST, CTTHORACIC SPINE WO CONTRAST, CT CERVICAL SPINE WO CONTRAST, DATE/TIME OF EXAM: 09/08/2023 2:54 PM, LOCATION [facility] INDICATION: Trauma ADDITIONAL CLINICAL INFORMATION: Ordering Provider Reason For Exam: Technologist Note: Additional: EXAMINATION: 1. Computed tomography (CT) of the head without contrast 2. CT of the cervical spine without contrast 3. CT of the thoracic spine without contrast 4. CT of the lumbar spine without contrast TECHNIQUE: CT of the head and cervical spine were performed without contrast according to standard protocol. Reformatted axial, sagittal,and coronal images of the thoracic and lumbar spine were obtained by the technologist from a concurrently performed body CT and sent to the workstation for review. COMPARISON: No prior study is available for comparison at the time ofthis dictation. FINDINGS: Head: No acute intracranial hemorrhage or intra- or extra-axial fluidcollections are identified. The ventricles are of normal size, shape, andmorphology. The basal cisterns are patent. No mass effect or midline shift is seen.The bianchi-white matter differentiation is normal. Other than mild paranasal sinus disease, the visualized portions of the orbits, paranasal sinuses, and mastoids appear normal. No acute calvarial fracture is identified. Cervical spine: The alignment is normal. The prevertebral soft tissue is normal in thickness. The mineralization of the bones is normal. Vertebral bodiesare normal in height without evidence of acute fracture. The craniocervical junction is normal. The intervertebral discs appear normal. The central canal is patent. The facets appear normal. The uncovertebral jointsappear normal. No neural foraminal stenosis is seen. No soft tissue abnormality is identified. Thoracic spine: Mild levoscoliosis. The mineralization of the bones is normal. Vertebral bodies are normal in height without evidence of acute fracture. The intervertebral discs appear normal. The central canal is patent. Thefacets appear normal. No neural foraminal stenosis is seen. No soft tissue abnormality is identified. Lumbar spine: The alignment is normal. The mineralization of the bones is normal. Vertebral bodies are normal in height without evidence of acutefracture. L2 and L4 limbus vertebra. The intervertebral discs appear normal. The central canal is patent. The facets appear normal. No neural foraminal stenosis is seen. No soft tissue abnormality is identified. IMPRESSION: 1. No acute intracranial process. 2. No evidence of acute fracture in the cervical, thoracic, or lumbar spine. > Interpreting Provider: Brenden Nicole MD on 09/08/2023 3:09 PM Sree Graham MD CT ORDERABLES * CT CERVICAL SPINE WO CONTRAST - C-Spine Trauma, Spine fracture (09/08/2023 2:53 PM INTERNET MARKETING CONSULTANT) Anatomical Region Laterality Modality Spine Computed Tomogra phy 09/08/2023 2:49 PM INTERNET MARKETING CONSULTANT Impressions 09/08/2023 3:09 PM INTERNET MARKETING CONSULTANT IMPRESSION: 1. No acute intracranial process. 2. No evidence of acute fracture in the cervical, thoracic, or lumbar spine. > Interpreting Provider: Brenden Nicole MD on 09/08/2023 3:09 PM Narrative 09/08/2023 3:09 PM INTERNET MARKETING CONSULTANT PROCEDURE: CT HEAD WO CONTRAST, CT LUMBAR SPINE WO CONTRAST, CT THORACIC SPINE WO CONTRAST, CT CERVICAL SPINE WO CONTRAST, DATE/TIME OF EXAM: 09/08/2023 2:54 PM, LOCATION [facility] INDICATION: Trauma ADDITIONAL CLINICAL INFORMATION: Ordering Provider Reason For Exam: Technologist Note: Additional: EXAMINATION: 1. Computed tomography (CT) of the head without contrast 2. CT of the cervical spine without contrast 3. CT of the thoracic spine without contrast 4. CT of the lumbar spine without contrast TECHNIQUE: CT of the head and cervical spine were performed without contrast according to standard protocol. Reformatted axial, sagittal, and coronal images of the thoracic and lumbar spine were obtained by the technologist from a concurrently performed body CT and sent to the workstation for review. COMPARISON: No prior study is available for comparison at the time of this dictation. FINDINGS: Head: No acute intracranial hemorrhage or intra- or extra-axial fluid collections are identified. The ventricles are of normal size, shape, and morphology. The basal cisterns are patent. No mass effect or midline shift is seen. The bianchi-white matter differentiation is normal. Other than mild paranasal sinus disease, the visualized portions of the orbits, paranasal sinuses, and mastoids appear normal. No acute calvarial fracture is identified. Cervical spine: The alignment is normal. The prevertebral soft tissue is normal in thickness. The mineralization of the bones is normal. Vertebral bodies are normal in height without evidence of acute fracture. The craniocervical junction is normal. The intervertebral discs appear normal. The central canal is patent. The facets appear normal. The uncovertebral joints appear normal. No neural foraminal stenosis is seen. No soft tissue abnormality is identified. Thoracic spine: Mild levoscoliosis. The mineralization of the bones is normal. Vertebral bodies are normal in height without evidence of acute fracture. The intervertebral discs appear normal. The central canal is patent. The facets appear normal. No neural foraminal stenosis is seen. No soft tissue abnormality is identified. Lumbar spine: The alignment is normal. The mineralization of the bones is normal. Vertebral bodies are normal in height without evidence of acute fracture. L2 and L4 limbus vertebra. The intervertebral discs appear normal. The central canal is patent. The facets appear normal. No neural foraminal stenosis is seen. No soft tissue abnormality is identified. Procedure Note Brenden Nicole MD - 09/08/2023 PROCEDURE: CT HEAD WO CONTRAST, CT LUMBAR SPINE WO CONTRAST, CTTHORACIC SPINE WO CONTRAST, CT CERVICAL SPINE WO CONTRAST, DATE/TIME OF EXAM: 09/08/2023 2:54 PM, LOCATION [facility] INDICATION: Trauma ADDITIONAL CLINICAL INFORMATION: Ordering Provider Reason For Exam: Technologist Note: Additional: EXAMINATION: 1. Computed tomography (CT) of the head without contrast 2. CT of the cervical spine without contrast 3. CT of the thoracic spine without contrast 4. CT of the lumbar spine without contrast TECHNIQUE: CT of the head and cervical spine were performed without contrast according to standard protocol. Reformatted axial, sagittal,and coronal images of the thoracic and lumbar spine were obtained by the technologist from a concurrently performed body CT and sent to the workstation for review. COMPARISON: No prior study is available for comparison at the time ofthis dictation. FINDINGS: Head: No acute intracranial hemorrhage or intra- or extra-axial fluidcollections are identified. The ventricles are of normal size, shape, andmorphology. The basal cisterns are patent. No mass effect or midline shift is seen.The bianchi-white matter differentiation is normal. Other than mild paranasal sinus disease, the visualized portions of the orbits, paranasal sinuses, and mastoids appear normal. No acute calvarial fracture is identified. Cervical spine: The alignment is normal. The prevertebral soft tissue is normal in thickness. The mineralization of the bones is normal. Vertebral bodiesare normal in height without evidence of acute fracture. The craniocervical junction is normal. The intervertebral discs appear normal. The central canal is patent. The facets appear normal. The uncovertebral jointsappear normal. No neural foraminal stenosis is seen. No soft tissue abnormality is identified. Thoracic spine: Mild levoscoliosis. The mineralization of the bones is normal. Vertebral bodies are normal in height without evidence of acute fracture. The intervertebral discs appear normal. The central canal is patent. Thefacets appear normal. No neural foraminal stenosis is seen. No soft tissue abnormality is identified. Lumbar spine: The alignment is normal. The mineralization of the bones is normal. Vertebral bodies are normal in height without evidence of acutefracture. L2 and L4 limbus vertebra. The intervertebral discs appear normal. The central canal is patent. The facets appear normal. No neural foraminal stenosis is seen. No soft tissue abnormality is identified. IMPRESSION: 1. No acute intracranial process. 2. No evidence of acute fracture in the cervical, thoracic, or lumbar spine. > Interpreting Provider: Brenden Nicole MD on 09/08/2023 3:09 PM Sree Graham MD CT ORDERABLES * CT HEAD WO CONTRAST - Head Trauma, CSF leak, mental status changes (09/08/2023 2:53 PM INTERNET MARKETING CONSULTANT) Anatomical Region Laterality Modality Head Computed Tomogra phy 09/08/2023 2:49 PM INTERNET MARKETING CONSULTANT Impressions 09/08/2023 3:09 PM INTERNET MARKETING CONSULTANT IMPRESSION: 1. No acute intracranial process. 2. No evidence of acute fracture in the cervical, thoracic, or lumbar spine. > Interpreting Provider: Brenden Nicole MD on 09/08/2023 3:09 PM Narrative 09/08/2023 3:09 PM INTERNET MARKETING CONSULTANT PROCEDURE: CT HEAD WO CONTRAST, CT LUMBAR SPINE WO CONTRAST, CT THORACIC SPINE WO CONTRAST, CT CERVICAL SPINE WO CONTRAST, DATE/TIME OF EXAM: 09/08/2023 2:54 PM, LOCATION [facility] INDICATION: Trauma ADDITIONAL CLINICAL INFORMATION: Ordering Provider Reason For Exam: Technologist Note: Additional: EXAMINATION: 1. Computed tomography (CT) of the head without contrast 2. CT of the cervical spine without contrast 3. CT of the thoracic spine without contrast 4. CT of the lumbar spine without contrast TECHNIQUE: CT of the head and cervical spine were performed without contrast according to standard protocol. Reformatted axial, sagittal, and coronal images of the thoracic and lumbar spine were obtained by the technologist from a concurrently performed body CT and sent to the workstation for review. COMPARISON: No prior study is available for comparison at the time of this dictation. FINDINGS: Head: No acute intracranial hemorrhage or intra- or extra-axial fluid collections are identified. The ventricles are of normal size, shape, and morphology. The basal cisterns are patent. No mass effect or midline shift is seen. The bianchi-white matter differentiation is normal. Other than mild paranasal sinus disease, the visualized portions of the orbits, paranasal sinuses, and mastoids appear normal. No acute calvarial fracture is identified. Cervical spine: The alignment is normal. The prevertebral soft tissue is normal in thickness. The mineralization of the bones is normal. Vertebral bodies are normal in height without evidence of acute fracture. The craniocervical junction is normal. The intervertebral discs appear normal. The central canal is patent. The facets appear normal. The uncovertebral joints appear normal. No neural foraminal stenosis is seen. No soft tissue abnormality is identified. Thoracic spine: Mild levoscoliosis. The mineralization of the bones is normal. Vertebral bodies are normal in height without evidence of acute fracture. The intervertebral discs appear normal. The central canal is patent. The facets appear normal. No neural foraminal stenosis is seen. No soft tissue abnormality is identified. Lumbar spine: The alignment is normal. The mineralization of the bones is normal. Vertebral bodies are normal in height without evidence of acute fracture. L2 and L4 limbus vertebra. The intervertebral discs appear normal. The central canal is patent. The facets appear normal. No neural foraminal stenosis is seen. No soft tissue abnormality is identified. Procedure Note Brenden Nicole MD - 09/08/2023 PROCEDURE: CT HEAD WO CONTRAST, CT LUMBAR SPINE WO CONTRAST, CTTHORACIC SPINE WO CONTRAST, CT CERVICAL SPINE WO CONTRAST, DATE/TIME OF EXAM: 09/08/2023 2:54 PM, LOCATION [facility] INDICATION: Trauma ADDITIONAL CLINICAL INFORMATION: Ordering Provider Reason For Exam: Technologist Note: Additional: EXAMINATION: 1. Computed tomography (CT) of the head without contrast 2. CT of the cervical spine without contrast 3. CT of the thoracic spine without contrast 4. CT of the lumbar spine without contrast TECHNIQUE: CT of the head and cervical spine were performed without contrast according to standard protocol. Reformatted axial, sagittal,and coronal images of the thoracic and lumbar spine were obtained by the technologist from a concurrently performed body CT and sent to the workstation for review. COMPARISON: No prior study is available for comparison at the time ofthis dictation. FINDINGS: Head: No acute intracranial hemorrhage or intra- or extra-axial fluidcollections are identified. The ventricles are of normal size, shape, andmorphology. The basal cisterns are patent. No mass effect or midline shift is seen.The bianchi-white matter differentiation is normal. Other than mild paranasal sinus disease, the visualized portions of the orbits, paranasal sinuses, and mastoids appear normal. No acute calvarial fracture is identified. Cervical spine: The alignment is normal. The prevertebral soft tissue is normal in thickness. The mineralization of the bones is normal. Vertebral bodiesare normal in height without evidence of acute fracture. The craniocervical junction is normal. The intervertebral discs appear normal. The central canal is patent. The facets appear normal. The uncovertebral jointsappear normal. No neural foraminal stenosis is seen. No soft tissue abnormality is identified. Thoracic spine: Mild levoscoliosis. The mineralization of the bones is normal. Vertebral bodies are normal in height without evidence of acute fracture. The intervertebral discs appear normal. The central canal is patent. Thefacets appear normal. No neural foraminal stenosis is seen. No soft tissue abnormality is identified. Lumbar spine: The alignment is normal. The mineralization of the bones is normal. Vertebral bodies are normal in height without evidence of acutefracture. L2 and L4 limbus vertebra. The intervertebral discs appear normal. The central canal is patent. The facets appear normal. No neural foraminal stenosis is seen. No soft tissue abnormality is identified. IMPRESSION: 1. No acute intracranial process. 2. No evidence of acute fracture in the cervical, thoracic, or lumbar spine. > Interpreting Provider: Brenden Nicole MD on 09/08/2023 3:09 PM Sree Graham MD CT ORDERABLES * PT-INR [facility] (09/08/2023 2:52 PM INTERNET MARKETING CONSULTANT) PT 12.4 12.1 - 14.8 Seconds 09/08/2023 3:29 PM INTERNET MARKETING CONSULTANT [facility] INR 1.0 See Comment 09/08/2023 3:29 PM [facility] Comment:The suggested therap eutic range for standard coumadin (warfarin) therapy is an INR of 2.0-3.0. For high-risk patients (Mechanical Mitral Valve Prosthesis, etc.), the suggested prophylactic therapeutic range is an INR of 2.5-3.5. Blood BLOOD SPECIMEN / Unknown Venipuncture / Unknown 09/08/2023 2:52 PM INTERNET MARKETING CONSULTANT 09/08/2023 3:05 PM INTERNET MARKETING CONSULTANT Sree Graham MD LAB - COAGULATION O RDERABLES Performing Organization Address [facility] Co de Phone Number [address] [address], [place] [phone] * CK BLOOD (09/08/2023 2:52 PM INTERNET MARKETING CONSULTANT) CK Total 116 30 - 200 U/L 09/08/2023 3:38 PM INTERNET MARKETING CONSULTANT [facility] Blood BLOOD SPECIMEN / Unknown Venipuncture / Unknown 09/08/2023 2:52 PM INTERNET MARKETING CONSULTANT 09/08/2023 3:05 PM INTERNET MARKETING CONSULTANT Sree Graham MD LAB - CHEMISTRY ORD ERABLES Performing Organization Address [facility] de Phone Number [address] [address], [facility] [phone] * ALCOHOL ETHYL BLOOD (09/08/2023 2:52 PM INTERNET MARKETING CONSULTANT) Ethanol (mg/dL) <10 <10 mg/dL 3:38 PM INTERNET MARKETING CONSULTANT [facility] Ethanol Calculated (g/dL) <0.010 <=0.010 g/dL 09/08/2023 3:38 PM [facility] Blood BLOOD SPECIMEN / Unknown Venipuncture / Unknown 09/08/2023 2:52 PM INTERNET MARKETING CONSULTANT 09/08/2023 3:05 PM INTERNET MARKETING CONSULTANT Narrative [facility] - 09/08/2023 3:38 PM INTERNET MARKETING CONSULTANT Ethanol Interp <10: None Detected. Depression of ONCOLOGY ACCOUNT SPECIALIST: >100 mg/dl Potentially Critical: >250 mg/dl Potentially Fatal >400 mg/dl Ethanol in the patient's blood will contribute to the osmolar gap. Ethanol's contribution to the osmolar gap can be estimated by dividing the concentration of ethanol in mg/dL by 4.6. This test is for clinical use only and does not equal a BARRIE for legal purposes. Sree Graham MD LAB - CHEMISTRY ORD ERABLES [facility] [address] [place] [address], [place] [phone] * HCG URINE QUALITATIVE - POINT OF CARE (AMB) (04/23/2022 11:00 AM CDT) Only the most recent of3 resultswithin the time period is included. HCG Qual Urine Negative Negative [facility] QC Verified Yes Yes [facility] Urine URINE / Unknown 04/23/2022 1 1:00 AM CDT Tonie Garcia MD LAB - POINT OF CARE ORDERABLES [facility] [address], [facility] [address] [place] [address], [facility] [phone] * XR WRIST 3+ VW RIGHT (11/25/2021 8:39 AM CDT) Anatomical Region Laterality Modality Wrist / Hand Radiographic Caroline ging 11/25/2021 8:50 AM CDT Narrative 11/25/2021 8:50 AM CDT Right wrist Indication for examination: Trauma with persistent pain right wrist 3 views of the right wrist are obtained. No discrete acute fracture is identified. Articulations are intact. Bones are well-mineralized. CONCLUSION: No fracture or bone destruction identified. I would recommend a follow-up study if clinical symptoms persist. *Reading Radiologist: Deshaun Hernandez on 11/25/2021 at 8:50 AM Procedure Note Deshaun Hernandez MD - 11/25/2021 Right wrist Indication for examination: Trauma with persistent pain right wrist 3 views of the right wrist are obtained. No discrete acute fracture is identified. Articulations are intact. Bones are well-mineralized. CONCLUSION: No fracture or bone destruction identified. I would recommend a follow-up study if clinical symptoms persist. *Reading Radiologist: Deshaun Hernandez on 11/25/2021 at 8:50 AM Benjamin Orona MD DIAGNOSTIC IMAGING O RDERABLES * XR HAND 3+ VW RIGHT (11/25/2021 8:38 AM CDT) Anatomical Region Laterality Modality Wrist / Hand Radiographic Caroline ging 11/25/2021 8:50 AM CDT Narrative 11/25/2021 8:51 AM CDT Right hand Indication for examination: Trauma with persistent pain right hand 3 views of the right hand are obtained and demonstrate no acute fracture. Articulations are intact. Bones are well-mineralized. CONCLUSION: No acute bony abnormality identified. *Reading Radiologist: Deshaun Hernandez on 11/25/2021 at 8:51 AM Procedure Note Deshaun Hernandez MD - 11/25/2021 Right hand Indication for examination: Trauma with persistent pain right hand 3 views of the right hand are obtained and demonstrate no acute fracture. Articulations are intact. Bones are well-mineralized. CONCLUSION: No acute bony abnormality identified. *Reading Radiologist: Deshaun Hernandez on 11/25/2021 at 8:51 AM Benjamin Orona MD DIAGNOSTIC IMAGING O RDERABLES * CHLAMYDIA + GC + TRICH DNA AMPL (10/17/2021 10:42 AM CDT) Only the most recent of2 resultswithin the time period is included. Chlamydia trachomatis VARGAS Negative Negative [facility] INSURANCE BILL GC DNA Probe Negative Negative [facility] INSURANCE BILL Trichomonas vaginalis by VARGAS Negative Negative [facility] INSURANCE BILL Microbiology ENTIRE ENDOCERVIX / Unknown 10/17/2021 10:42 AM CDT 10/17/2021 Narrative Resulting Agency Comment Lab Testing performed at: [facility] [phone] Tonie Garcia MD LAB - MICROBIOLOGY O RDLINDSAY [facility] INSURANCE BILL [address] [place] [address] * HCG URINE QUALITATIVE - POCT (IP) CHEVY (03/04/2017 1:34 PM CDT) Only the most recent of2 resultswithin the time period is included. HCG Qual Urine Negative Negative [facility] POCT TESTING QC Verified Yes Yes [facility] PO CT TESTING Urine URINE / Unknown 03/04/2017 1 :34 PM CDT Ino Kong MD LAB - POINT OF CARE ORDERABLES [facility] POCT TESTING [address] [phone] * PEDIATRIC DIAGNOSTIC POLYSOMNOGRAM (10/21/2016) Linked Results See Linked Results [facility] 10/21/2016 William Snyder MD SLEEP CENTER ORDER [facility] * URINALYSIS ROUTINE AUTO (09/02/2016 7:07 PM INTERNET MARKETING CONSULTANT) Color UA Yellow Straw, Yellow, Dark Yellow 09/02/2016 7:32 PM [facility] Clarity UA Clear 09/02/2016 7:32 PM [facility] Specific [place] UA >=1.030 1.005 - 1.030 09/02/2016 7:32 PM [facility] pH UA 6.0 5.0 - 8.0 pH 09/02/2016 7:32 PM [facility] Protein UA Negative Negative 09/02/2016 7:32 PM [facility] Blood UA Negative Negative 09/02/2016 7:32 PM [facility] Leukocyte UA Negative Negative 09/02/2016 7:32 PM [facility] Nitrite UA Negative Negative 09/02/2016 7:32 PM [facility] Glucose UA Negative Negative 09/02/2016 7:32 PM [facility] Ketone UA Negative Negative 09/02/2016 7:32 PM [facility] Bilirubin UA Negative Negative 09/02/2016 7:32 PM [facility] Urobilinogen UA 0.2 0.1 - 1.0 EU/dL 09/02/2016 7:32 PM [facility] Urine URINE SPECIMEN OBTAINED BY CLEAN CATCH PROCEDURE / Unknown 09/02/2016 7:07 PM INTERNET MARKETING CONSULTANT 09/02/2016 7:28 PM INTERNET MARKETING CONSULTANT Allyson Daley MD LAB - URINALYSIS ORD ERABLES Performing Organization Address [facility]/ZIP Co de Phone Number [facility] [address] [place] [address] * URINALYSIS MICROSCOPIC ONLY (09/02/2016 7:07 PM INTERNET MARKETING CONSULTANT) RBC UA 0-2 0-2, 2-5 # /hpf 09/02/2016 8:03 PM INTERNET MARKETING CONSULTANT [facility] WBC UA 0-2 0-2, 2-5 # /hpf 09/02/2016 8:03 PM [facility] Bacteria UA Trace None Seen, Trace 09/02/2016 8:03 PM [facility] Epithelial Cell UA 2-5 0-2, 2-5 # /hpf 09/02/2016 8:03 PM [facility] Urine URINE SPECIMEN OBTAINED BY CLEAN CATCH PROCEDURE / Unknown 09/02/2016 7:07 PM INTERNET MARKETING CONSULTANT 09/02/2016 7:28 PM INTERNET MARKETING CONSULTANT Allyson Daley MD LAB - URINALYSIS ORD ERABLES Performing Organization Address [facility]/ZIP Co de Phone Number [facility] [address] [place] [id number] * CHLAMYDIA + GC AMPLIFIED PROBE (09/02/2016 7:07 PM INTERNET MARKETING CONSULTANT) Chlamydia Amplified Probe Negative Negative 09/03/2016 10:34 AM [facility] GC Amplified Probe Negative Negative 09/03/2016 10:34 AM [facility] Microbiology URINE / Unknown 09/02/2016 7 :07 PM INTERNET MARKETING CONSULTANT 09/02/2016 7:34 PM INTERNET MARKETING CONSULTANT Narrative [facility] MICROBIOLOGY - 09/03/2016 10:34 AM [facility] This test was developed and its performance characteristics determined by the [facility], [facility]. Female urine specimens tested by the [facility] have not been cleared or approved by the U.S. Food and Drug Administration (FDA). The laboratory is regulated under the Clinical Laboratory Improvement Amendments (CLIA) as qualified to perform high-complexity testing. This test is used for clinical purposes. It should not be regarded as investigational or for research. Results based on detection/no detection of ribosomal RNA by amplified method. Allyson Daley MD LAB - MICROBIOLOGY O RDERABLES [facility] [address] [place] [address], [facility] [phone] * (ABNORMAL) SED RATE WESTERGREN (09/02/2016 7:06 PM INTERNET MARKETING CONSULTANT) Erythrocyte Sedimentation Rate Westergren 18(H) 0 - 12 mm/hr 09/02/2016 7:43 PM INTERNET MARKETING CONSULTANT [facility] Blood BLOOD SPECIMEN / Unknown 09/02/2016 7:06 PM INTERNET MARKETING CONSULTANT 09/02/2016 7:29 PM INTERNET MARKETING CONSULTANT Allyson Daley MD LAB - HEMATOLOGY ORD ERABLES Performing Organization Address City/[facility]/ZIP Co de Phone Number [facility] [place] [address] * LAB RESULTS ORDER (12/06/2015 6:27 PM CDT) Narrative 12/06/2015 6:27 PM CDT Ordered by an unspecified provider. Scanned Document LAB - THERAPEUTIC DR VALENCIA MONITORING ORDERABLES Care Teams Sheet Roller Operator Relationship Specialty Start Date End Date Provider, No Pcp PCP - General 09/08/23
--- OUTSIDE RECORDS SUMMARY | 2024-09-15 10:48 | XMS_ITS | Referral Summary ---
Author Organization [facility] Address [address] [place] [address] Care Team Providers Care Supervisor Shuttle Fitting Name Role Phone Chencho Teran MD Primary Care Provider [phone] Allergies Active Allergy Reactions Criticality Noted Date [...] - 09/07 exlap, sigmoidectomy, primary anastomosis ([facility]) - 09/15 re-exploration, resection of previous anastomosis for leak, descending colon to rectum primary anastomosis, pedicled omental flap, clean closure ([facility]) - 09/23 IR drain for intra-abdominal fluid collection/abscess Intra-abdominal abscess 10/25/2023 Assessment & Plan (10/25/2023 11:39 AM CDT): RLQ fluid collection s/p bowel resection c/b anastomotic leak requiring re-exploration and additional resection. 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 Gender Identity Not on file Sexual Orientation Not on file Last Filed Vital Signs Vital Sign Reading [...] 10/25/2023 6:05 AM CDT Plan of Treatment Not on file Procedures [...] LAB BLOOD ORDERABLES Final Resul t [facility] [place] [address] from Last 3 Months or Most Recently Relevant to Health Maintenance Insurance [employer] EXCHANGE [employer]CHANGE [facility] Advance Directives For more information, please contact: [phone] * Full Code (Latest Code Status on File) Date Activated Date Inactivated Comments 10/25/2023 6:12 AM 10/25/2023 7:55 PM Care Teams Supervisor Shuttle Fitting Relationship Specialty Start Date End Date Chencho Teran MD [address] [address] PCP - General Family Medicine 10/25/23
[2024-09-15 12:15] VITALS: TEMP 39.1
--- OUTSIDE RECORDS SUMMARY | 2024-09-15 12:27 | XMS_ITS | Clinical Summary ---
Author Organization [facility] Address [address] [place] [address] Care Team Providers Care Top Former Name Role Phone Chencho Teran MD Primary Care Provider [phone] Allergies Active Allergy Reactions Criticality Noted Date [...] procedures: - 09/07 exlap, sigmoidectomy, primary anastomosis ([facility]) - 09/15 re-exploration, resection of previous anastomosis for leak, descending colon to rectum primary anastomosis, pedicled omental flap, clean closure ([facility]) - 09/23 IR drain for intra-abdominal fluid collection/abscess Intra-abdominal abscess 10/25/2023 Assessment & Plan (10/25/2023 11:39 AM CDT): RLQ fluid collection s/p bowel resection c/b anastomotic leak requiring re-exploration and additional resection. 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 Gender Identity Not on file Sexual Orientation [...] LAB BLOOD ORDERABLES Final Resul t [facility] [place] [address] from Last 3 Months or Most Recently Relevant to Health Maintenance Insurance [facility] XDC EXCH[place] [address] BLUE PATHWAYS EXCHANGE Member Subscriber Plan / Payer (Ef fective 2023-Present) Name:Patricia New Relation to Subscriber:Self Name:Patricia New Payer ID:[id number] (NAIC) Type:HEALTHCARE/EXCHANGE Address: [facility] [id number] Advance Directives For more information, please contact: [phone] * Full Code (Latest Code Status on File) Date Activated Date Inactivated Comments 10/25/2023 6:12 AM 10/25/2023 7:55 PM Care Teams Top Former Relationship Specialty Start Date End Date Chencho Teran MD [address] [address] PCP - General Family Medicine 10/25/23
--- OUTSIDE RECORDS SUMMARY | 2024-09-15 12:27 | XMS_ITS | Clinical Summary ---
Author Organization [facility] Address [address] [place] [address] Care Team Providers Care Outside Sales Manager Name Role Phone Provider, No Pcp Primary Care Provider Unavailab le Source Comments [facility],non-owned Affiliates and Associated Physician Practices is amultiple site organization consisting of ambulatory clinics and hospital sitesin [place], [place], [place]. This disclosure is being madepursuant to the Care Everywhere program and may not contain all information available regarding this patient. Last updated 18.[facility] Allergies Active Allergy Reactions Criticality Noted Date [...] Date Recorded PHQ2 TOTAL SCORE 2 08/16/2021 [facility] - Occupational [...] place to sleep or slept in a mcc (including now)? 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 Gender Identity Female 08/16/2021 9:43 AM WEDDING DAY COORDINATOR Sexual Orientation Bisexual 08/16/2021 9: 43 AM WEDDING DAY COORDINATOR Last Filed Vital Signs Vital Sign Reading [...] Resulting Agency Comment Lab Testing performed at: [address] [id number] Tonie Garcia MD LAB - MICROBIOLOGY O RDERABLES [facility] INSURANCE BILL [address] [place] [address] from Last 3 Months or Most Recently Relevant to Health Maintenance Advance Directives * Full Code (Latest Code Status on File) Date Activated Date Inactivated Comments 09/17/2023 7:49 AM 09/25/2023 11:43 AM * Full Code Date Activated Date Inactivated Comments 09/17/2023 3:28 AM 09/17/2023 3:29 AM * Full Code Date Activated Date Inactivated Comments 09/08/2023 5:46 PM 09/11/2023 10:57 AM Care Teams Outside Sales Manager Relationship Specialty Start Date End Date Provider, No Pcp PCP - General 09/08/23
--- OUTSIDE RECORDS SUMMARY | 2024-09-15 12:27 | XMS_ITS | Clinical Summary ---
Author Organization [facility] Address [address] [place] [address] Care Team Providers Care Trial Consultant Name Role Phone Josefina Hess MD Primary Care Provider [phone] Allergies Active Allergy Reactions Criticality Noted Date Comments Amoxicillin Rash Low 09/04/2022 Amoxicillin-Pot Clavulanate Rash Low 09/05/19 23 Bee Venom Anaphylaxis High 09/04/2022 Doxycycline Photosensitivity 09/04/2022 Ziprasidone Nausea Only 09/04/2022 Medications hydrOXYzine (ATARAX) 25 MG tablet Take 1 tablet (25 mg total) by mouth every 4 (four) hours as needed. Active Encounters Date Type Department Care Team Description 08/17/2024 8:44 AM [facility] - 08/17/2024 12:08 PM [facility] Emergency [facility] [place] [address] Deshaun Kong DO Back Pain Discharge Disposition: Home or Self Care (Routine Discharge) 08/17/2024 Travel 06/29/2024 4:28 PM AUTO MECHANICS INSTRUCTOR - 06/29/2024 7:04 PM [facility] Emergency [facility] [place] [address] Milan Major PA Body Aches (Body aches) Discharge Disposition: Home or Self Care (Routine Discharge) 06/29/2024 Travel 06/20/2024 Travel from Last 3 Months Social History Tobacco Use Types Packs/Day Years Used Date Smoking Tobacco: Some Days Cigarettes Smokeless Tobacco: Never Tobacco Cessation:Ready to Q uit: Not Asked; Counseling Given: Not Answered Alcohol Use Standard Drinks/Week Comments Yes 0 (1 standard drink = 0.6 oz pur e alcohol) Occasional Comments No Sex and Gender Information Value Date Recorded Sex Assigned at Female 08/17/2024 8:56 AM AUTO MECHANICS INSTRUCTOR Legal Sex Female 7:06 AM CDT Gender Identity Not on file Sexual Orientation Not on file Last Filed Vital Signs Vital Sign Reading Time Taken Comments Blood Pressure 108/51 08/17/2024 10:08 AM AUTO MECHANICS INSTRUCTOR Pulse 66 08/17/2024 10:08 AM AUTO MECHANICS INSTRUCTOR Temperature 36.1 C (96.9 F) 08/17/2024 8:48 AM AUTO MECHANICS INSTRUCTOR Respiratory Rate 18 08/17/2024 10:08 AM AUTO MECHANICS INSTRUCTOR Oxygen Saturation 97% 08/17/2024 10:08 AM AUTO MECHANICS INSTRUCTOR Inhaled Oxygen Concentration - - Weight 98.9 kg (218 lb) 08/17/2024 8:48 AM AUTO MECHANICS INSTRUCTOR Height 165.1 cm (5' 5 ) 08/17/2024 8:48 AM AUTO MECHANICS INSTRUCTOR Body Mass Index 36.28 08/17/2024 8:48 AM AUTO MECHANICS INSTRUCTOR Plan of Treatment Health Maintenance Due Date Last Done Comments Annual Physical 2005 Meningococcal B Vaccine (1 of 2 - Standard) 2018 DTaP, Tdap and Td Vaccines (7 - Td or Tdap) 01/17/2024 01/16/2014, 06/20/2007, 06/20/2007, Additional history exists COVID-19 Vaccine ( - season) 2024 12/20/2020, 11/29/2020 Influenza Adult (#1) 2024 03/29/2020, 03/28/20 18 Cervical Cancer Screening Pap Smear (Age 21 to 29) Every 3 Years 10/17/2024 10/17/2021 Cervical Cancer Screening 10/17/2024 Pneumococcal Vaccine: Pediatrics (0 to 5 Years) and At-Risk Patients (6 to 64 Years) (2 of 2 - PPSV23 or PCV20) 2067 03/29/2020, 01/25/2003, 2002, Additional history exists Hepatitis B Vaccines Completed 10/10/2005, 11/27/2003, 01/25/2003, Additional history exists HPV Vaccines Completed 08/15/2018, 03/06, 01/16/2014 Meningococcal Vaccine Completed 02/10/2019 , 07/11/2018, 01/16/2014 Hepatitis C Completed 02/22/2024 RSV Immunizations Under 20 Months Aged Out No longer eligible based on patient's age to complete this topic Procedures Procedure Name Priority Date/Time Associated Diagnosis Comments TEST URINE STAT 08/17/2024 10:10 AM AUTO MECHANICS INSTRUCTOR HC URINALYSIS AUTO W/MICRO STAT 08/17/2024 10:10 AM AUTO MECHANICS INSTRUCTOR LIPASE STAT 08/17/2024 9:15 AM AUTO MECHANICS INSTRUCTOR COMPREHENSIVE METABOLIC PANEL STAT 08/17/2024 9:15 AM AUTO MECHANICS INSTRUCTOR CBC W/DIFF AUTOMATED STAT 08/17/2024 9:15 AM AUTO MECHANICS INSTRUCTOR XR CHEST PA+LAT STAT 06/29/2024 5:50 PM AUTO MECHANICS INSTRUCTOR POCT URINE (BACK OFFICE) STAT 06/29/2024 5:09 PM AUTO MECHANICS INSTRUCTOR CORONAVIRUS (COVID 19) STAT 5:02 PM AUTO MECHANICS INSTRUCTOR INFLUENZA A & B STAT 06/29/2024 5:02 PM AUTO MECHANICS INSTRUCTOR from Last 3 Months Results * (ABNORMAL) URINALYSIS (08/17/2024 10:10 AM AUTO MECHANICS INSTRUCTOR) COLOR (U) YELLOW 08/17/2024 10:32 AM AUTO MECHANICS INSTRUCTOR [facility] TRANSPARENCY CLEAR 08/17/2024 10:32 AM AUTO MECHANICS INSTRUCTOR [facility] SPECIFIC GRAVITY (U) 1.020 1.000 - 1.025 08/17/2024 10:32 AM AUTO MECHANICS INSTRUCTOR [facility] U PH 6.0 5.0 - 8.0 08/17/2024 10:32 AM AUTO MECHANICS INSTRUCTOR [facility] LEUKOCYTES (U) NEGATIVE NEGATIVE 08/17/2024 10:32 AM AUTO MECHANICS INSTRUCTOR [facility] NITRITES NEGATIVE NEGATIVE 08/17/2024 10:32 AM AUTO MECHANICS INSTRUCTOR [facility] PROTEIN RANDOM (U) NEGATIVE NEGATIVE 08/17/2024 10:32 AM [facility] GLUCOSE (U) NEGATIVE NEGATIVE 08/17/2024 10:32 AM [facility] KETONES MG/DL (U) NEGATIVE NEGATIVE 08/17/2024 10:32 AM [facility] UROBILINOGEN 0.2 <1.0 EU/DL 08/17/2024 10:32 AM [facility] BILIRUBIN (U) NEGATIVE NEGATIVE 08/17/2024 10:32 AM [facility] BLOOD (U) NEGATIVE NEGATIVE 08/17/2024 10:32 AM [facility] WBC/HPF NONE SEEN(A) 0 - 5 /HPF 08/17/2024 10:32 AM [facility] EPI/LPF 20-50 /LPF 08/17/2024 10:32 AM [facility] BACTERIA (U) 2+ /HPF 08/17/2024 10:32 AM AUTO MECHANICS INSTRUCTOR [facility] URINE SPECIMEN OBTAINED BY CLEAN CATCH PROCEDURE / Unknown 08/17/2024 10:10 AM AUTO MECHANICS INSTRUCTOR us Deshaun Kong DO URINE ORDERABLES Final Result Performing Organization Address City/[facility]/ZIP Co de Phone Number [facility] [address] [place] [address], * TEST URINE (08/17/2024 10:10 AM AUTO MECHANICS INSTRUCTOR) URINE HCG TEST NEGATIVE 08/17/2024 10:33 AM AUTO MECHANICS INSTRUCTOR [facility] SPECIFIC GRAVITY 1.020 08/17/2024 10:33 AM AUTO MECHANICS INSTRUCTOR [facility] URINE SPECIMEN FROM URETHRA / Unknown 08/17/2024 10:10 AM AUTO MECHANICS INSTRUCTOR us Deshaun Kong DO URINE ORDERABLES Final Result Performing Organization Address [facility]/ZIP Co de Phone Number [facility] [place] [address], [place] [phone] * (ABNORMAL) COMPREHENSIVE METABOLIC PANEL (08/17/2024 9:15 AM [facility]) SODIUM S/P/B 141 136 - 145 MMOL/L 08/17/2024 9:35 AM [facility] POTASSIUM S/P/B 4.5 3.5 - 5.1 MMOL/L 08/17/2024 9:35 AM [facility] CHLORIDE S/P/B 103 98 - 107 MMOL/L 08/17/2024 9:35 AM [facility] CO2 24.9 21.0 - 32.0 MMOL/L 08/17/2024 9:35 AM [facility] GLUCOSE 86 70 - 99 MG/DL 08/17/2024 9:35 AM [facility] Comment: FASTING GLUCOSE 100 TO 125 MG/DL IS CONSISTENT WITH IMPAIRED FASTING GLUCOSE. FASTING GLUCOSE >125 MG/DL IS CONSISTENT WITH DIABETES. RANDOM GLUCOSE >200 MG/DL WITH HYPERGLYCEMIC SYMPTOMS IS CONSISTENT WITH DIABETES. PER ADA GUIDELINES BUN 22 6 - 24 MG/DL 08/17/2024 9:35 AM [facility] CREATININE S/P/B 0.99 0.55 - 1.02 MG/DL 08/17/2024 9:35 AM [facility] CALCIUM S/P/B 9.1 8.4 - 10.5 MG/DL 08/17/2024 9:35 AM [facility] BILIRUBIN TOTAL S/P/B 0.4 0.2 - 1.0 MG/DL 08/17/2024 9:35 AM [facility] Comment: THIS ASSAY IS NOT RECOMMENDED FOR PATIENTS UNDERGOING TREATMENT WITH ELTROMBOPAG DUE TO THE POTENTIAL FOR FALSELY ELEVATED RESULTS. ALKALINE PHOSPHATASE S/P/B 23(L) 52 - 144 U/L 08/17/2024 9:35 AM [facility] AST 36 15 - 37 U/L 08/17/2024 9:35 AM [facility] ALT 38 14 - 59 U/L 08/17/2024 9:35 AM [facility] TOTAL PROTEIN S/P/B 7.7 6.4 - 8.2 G/DL 08/17/2024 9:35 AM [facility] ALBUMIN S/P/B 3.4 3.4 - 5.0 G/DL 08/17/2024 9:35 AM [facility] ANION GAP 13.1 5.0 - 15.0 MMOL/L 08/17/2024 9:35 AM [facility] OSMOLALITY (CALC) 295 MOSM/KG 025 9:35 AM [facility] Comment:REFERENCE RANGE NOT ESTABLISHED GFR ESTIMATE 83(L) >89 ML/MIN/1. 73 M2 08/17/2024 9:35 AM [facility] GFR NOTES GFR REFERENCE S: 08/17/2024 9:35 AM [facility] Comment: THE ESTIMATED GFR IS CALCULATED USING THE 2020 CKD-EPI EQUATION. THE FOLLOWING CATEGORIES FOR GRADING RENAL FUNCTION ARE RECOMMENDED BY THE INTERNATIONAL SOCIETY OF NEPHROLOGY (KDIGO 2012 CLINICAL PRACTICE GUIDELINE). G1,NORMAL OR HIGH: >89 ml/min/1.73 m2 G2,MILDLY DECREASED: 60-89 ml/min/1.73 m2 G3A,MILDLY TO MODERATELY DECREASED: 45-59 ml/min/1.73 m2 G3B,MODERATELY TO SEVERELY DECREASED: 30-44 ml/min/1.73 m2 G4,SEVERELY DECREASED: 15-29 ml/min/1.73 m2 G5,KIDNEY FAILURE: <15 ml/min/1.73 m2 08/17/2024 9:15 AM AUTO MECHANICS INSTRUCTOR Deshaun Kong DO LABORATORY Final Result [facility] [address] [place] [address], * (ABNORMAL) CBC W/DIFF AUTOMATED (08/17/2024 9:15 AM AUTO MECHANICS INSTRUCTOR) WBC 10.77 4.00 - 10.80 x10'3/uL 08/17/2024 9:20 AM AUTO MECHANICS INSTRUCTOR [facility] RBC 4.91 4.10 - 5.40 x10'6/uL 08/17/2024 9:20 AM [facility] HGB 13.0 12.0 - 16.0 G/DL 08/17/2024 9:20 AM [facility] HCT 39.7 36.0 - 47.0 % 08/17/2024 9:20 AM [facility] MCV 80.9 78.0 - 100.0 FL 08/17/2024 9:20 AM [facility] MCH 26.5(L) 27.0 - 31.0 PG 08/17/2024 9:20 AM [facility] MCHC 32.7(L) 33.0 - 36.0 G/DL 08/17/2024 9:20 AM [facility] RDW 14.6(H) 11.5 - 14.5 % 08/17/2024 9:20 AM [facility] PLT 303 150 - 350 x10'3/uL 08/17/2024 9:20 AM [facility] MPV 9.5 7.4 - 10.4 FL 08/17/2024 9:20 AM [facility] CBC COMMENT NORMAL REFERENCE RANGE NOT ESTABLISHED FOR THE PROPORTIONAL LEUKOCYTE DIFFERENTIAL. 08/17/2024 9:20 AM [facility] NEUTROPHILS % 72.4 % 08/17/2024 9:20 AM [facility] LYMPHOCYTES % 18.8 % 08/17/2024 9:20 AM [facility] MONOCYTES % 5.5 % 08/17/2024 9:20 AM [facility] EOSINOPHILS % 2.7 % 08/17/2024 9:20 AM [facility] BASOPHILS % 0.3 % 08/17/2024 9:20 AM [facility] IMMATURE GRANS % 0.3 % 08/17/19 9:20 AM [facility] NRBC % 0.0 % 08/17/2024 9:20 AM [facility] ABS. NEUTROPHILS 7.81 1.60 - 8.30 x10'3/uL 08/17/2024 9:20 AM [facility] ABS. LYMPHOCYTES 2.02 0.80 - 4.70 x10'3/uL 08/17/2024 9:20 AM AUTO MECHANICS INSTRUCTOR [facility] ABS. MONOCYTES 0.59 0.00 - 1.50 x10'3/uL 08/17/2024 9:20 AM AUTO MECHANICS INSTRUCTOR [facility] ABS. EOSINOPHILS 0.29 0.00 - 0.40 x10'3/uL 08/17/2024 9:20 AM AUTO MECHANICS INSTRUCTOR [facility] ABS. BASOPHILS 0.03 0.00 - 0.20 x10'3/uL 08/17/2024 9:20 AM AUTO MECHANICS INSTRUCTOR [facility] ABS. IMMATURE GRANULOCYTES 0.03 0.00 - 0.03 x10'3/uL 08/17/2024 9:20 AM AUTO MECHANICS INSTRUCTOR [facility] ABS. NUCLEATED RBC'S 0.00 0.00 - 0.01 x10'3/uL 08/17/2024 9:20 AM AUTO MECHANICS INSTRUCTOR [facility] 08/17/2024 9:15 AM AUTO MECHANICS INSTRUCTOR Deshaun Kong DO LABORATORY Final Result [id number] [place] [address], * LIPASE (08/17/2024 9:15 AM AUTO MECHANICS INSTRUCTOR) LIPASE 21 16 - 77 UNITS/L 08/17/2024 9:35 AM AUTO MECHANICS INSTRUCTOR [facility] 08/17/2024 9:15 AM AUTO MECHANICS INSTRUCTOR [facility] LABORATORY Final Result [id number] [place] [address], * XR CHEST PA+LAT (06/29/2024 5:50 PM AUTO MECHANICS INSTRUCTOR) Anatomical Region Laterality Modality Chest Radiographic Caroline ging 06/29/2024 5:50 PM AUTO MECHANICS INSTRUCTOR Impressions 06/29/2024 5:55 PM AUTO MECHANICS INSTRUCTOR Impression: No acute findings. Referred By: Interpreted By: Jose May MD, 06/29/2024 5:50 PM Narrative 06/29/2024 5:55 PM AUTO MECHANICS INSTRUCTOR [place] [address] Examination: Chest 2 View History: Cough DATE/TIME: 06/29/2024 5:50 PM Comparison: 02/02/2023 Technique: PA and lateral views were obtained. Findings: Heart size, mediastinal contours and pulmonary vasculature are within normal limits. No pulmonary consolidation, pleural effusion or pneumothorax. No acute osseous abnormality. Procedure Note Jose May MD - 06/29/2024 [place] [address] Examination: Chest 2 View History: Cough DATE/TIME: 06/29/2024 5:50 PM Comparison: 02/02/2023 Technique: PA and lateral views were obtained. Findings: Heart size, mediastinal contours and pulmonary vasculature arewithin normal limits. No pulmonary consolidation, pleural effusion orpneumothorax. No acute osseous abnormality. Impression: No acute findings. Referred By: Interpreted By: Jose May MD, 06/29/2024 5:50 PM [place] [facility] Final Resu lt * POCT urine (06/29/2024 5:09 PM AUTO MECHANICS INSTRUCTOR) Pathologist [facility] URINE HCG TEST NEGATIVE Internal Control: VALID [place] [facility] POINT OF CARE TEST ORDERAB LES Final Result * CORONAVIRUS (COVID 19) (06/29/2024 5:02 PM AUTO MECHANICS INSTRUCTOR) Pathologist [facility] CORONAVIRUS SARS COV 2 RNA NEGATIVE NEGATIVE 06/29/2024 6:09 PM AUTO MECHANICS INSTRUCTOR [facility] Comment: NEGATIVE RESULTS DO NOT RULE OUT COVID 19 AND SHOULD NOT BE USED THE SOLE BASIS FOR TREATMENT OR PATIENT MANAGEMENT DECISIONS, INCLUDING INFECTION CONTROL DECISIONS. NEGATIVE RESULTS SHOULD BE CONSIDERED IN THE CONTEXT OF A PATIENT'S RECENT EXPOSURES, HISTORY AND THE PRESENCE OF CLINICAL SIGNS AND SYMPTOMS CONSISTENT WITH COVID 19. THE ID NOW COVID-19 2.0 TEST HAS BEEN AUTHORIZED BY THE FDA UNDER EAU FOR USE BY AUTHORIZED LABORATORIES. PERFORMED BY NUCLEIC ACID AMPLIFICATION FOR MOLECULAR QUALITATIVE DETECTION OF SARS-COV-2. SPECIMEN TYPE NASAL 06/29/2024 5:02 PM AUTO MECHANICS INSTRUCTOR [facility] NASAL STRUCTURE / Unknown 06/29/2024 5:02 PM AUTO MECHANICS INSTRUCTOR [place] [facility] - GENERAL ORD ERABLES Final Result Performing Organization Address City/[facility] Co de Phone Number [facility] [address] [place] [id number], [place] [phone] * (ABNORMAL) INFLUENZA A & B, RAPID (06/29/2024 5:02 PM AUTO MECHANICS INSTRUCTOR) [facility] SPECIMEN TYPE NASAL 06/29/2024 5:14 PM AUTO MECHANICS INSTRUCTOR [facility] INFLUENZA A POSITIVE(A) NEGATIVE 06/29/2024 6:15 PM AUTO MECHANICS INSTRUCTOR [facility] INFLUENZA B NEGATIVE NEGATIVE 06/29/2024 6:15 PM AUTO MECHANICS INSTRUCTOR [facility] Comment: Interpretation: Positive for Influenza Type A. This test can not distinguish influenza A virus subtypes. For example, this test cannot distinguish influenza infections caused by novel influenza A viruses versus seasonal influenza A viruses. NASAL STRUCTURE / Unknown 06/29/2024 5:02 PM AUTO MECHANICS INSTRUCTOR [place] [facility] - GENERAL ORD ERABLES Final Result [facility] [address] [place] [address], [place] [phone] from Last 3 Months Insurance [employer] Care Teams Trial Consultant Relationship Specialty [place] [address] [place] [address] [place] [address] PCP - General FAMILY PRACTICE 12/31/22
--- OUTSIDE RECORDS SUMMARY | 2024-09-15 12:27 | XMS_ITS | Patient Health Summary ---
Author Organization [facility] Address [address] [place] [address] Care Team Providers Care Junior Accountant Name Role Phone Provider, No Pcp Primary Care Provider Unavailab le Note from [facility],non-owned Affiliates and Associated Physician Practices is amultiple site organization consisting of ambulatory clinics and hospital sitesin [place], [place], [place] and [place]. This disclosure is being madepursuant to the Care Everywhere program and may not contain all information available regarding this patient. Last updated 18.[facility] Allergies * Amoxicillin(Urticaria,Nausea and/or Vomiting) -High Criticality [...] Date Recorded PHQ2 TOTAL SCORE 2 08/16/2021 [facility] - Occupational [...] place to sleep or slept in a fci (including now)? Yes 09/17/2023 Sex and Gender Information Value Date Recorded Sex Assigned at Female 08/16/2021 9:43 AM [employer] Gender Identity Female 08/16/2021 9:43 AM [employer] Sexual Orientation Bisexual 08/16/2021 9: 43 AM [employer] AG[employer] Last Filed Vital Signs Vital Sign Reading [...] 09/16/2023) Performed for Abdominal pain, generalized * CT EXPLORATORY OF ABDOMEN(Performed 09/16/2023) Performed for Bowel [...] encounter * ENDOTRACHEAL TUBE NOTE(Performed 09/09/2023) * CT LAP,DIAGNOSTIC ABDOMEN(Performed 09/09/2023) Performed for Radiation injury [...] 7 - 26 mg/dL 09/25/2023 5:56 AM [facility] Creatinine 0.64 0.56 - 0.96 mg/dL 09/25/2023 5:56 AM [facility] Sodium 138 136 - 145 mmol/L 09/25/2023 5:56 AM [facility] Potassium 4.2 3.5 - 4.5 mmol/L 09/25/2023 5:56 AM [facility] Chloride 101 98 - 107 mmol/L 09/25/2023 5:56 AM [facility] CO2 27 22 - 29 mmol/L 09/25/2023 5:56 AM [facility] Glucose 93 70 - 115 mg/dL 09/25/2023 5:56 AM [facility] Calcium 8.9 8.4 - 10.2 mg/dL 09/25/2023 5:56 AM [facility] Anion Gap 10 6 - 16 09/25/2023 5:56 AM [facility] BUN/Creatinine Ratio 20 7 - 23 09/25/2023 5:56 AM [facility] Osmolality Calculated 286 275 - 295 mOsm/kg 09/25/2023 5:56 AM [facility] eGFR by CKD-EPI >90 >=90 mL/min/1.7 3 m2 09/25/2023 5:56 AM [facility] Blood BLOOD SPECIMEN / Unknown Lab Venipuncture / Unknown 09/25/2023 4:57 AM CDT 09/25/2023 5:25 AM T Victor Manuel Zimmerman MD LAB - CHEMISTRY SUSANA MEDEIROS [address] [address], [facility] [phone] * PHOSPHORUS BLOOD (09/25/2023 4:57 AM CDT) Only the most recent of13 resultswithin the time period is included. Phosphorus 4.6 2.9 - 5.1 mg/dL 09/25/2023 5:56 AM CDT [facility] Blood BLOOD SPECIMEN / Unknown Lab Venipuncture / Unknown 09/25/2023 4:57 AM CDT 09/25/2023 5:25 AM CDT Victor Manuel Zimmerman MD LAB - CHEMISTRY SUSANA MEDEIROS Performing Organization Address [facility]/ZIP Co de Phone Number [address] [address], [facility] [phone] * CT DRAIN W CATH PLACEMENT (09/23/2023 4:02 PM CDT) Anatomical Region Laterality Modality Abdomen Computed Tomogra phy 09/23/2023 5:00 PM CDT Impressions 09/23/2023 5:13 PM CDT Impression: CT-guided placement of 10 Afghan pigtail drainage catheter in right lower quadrant, [...] please review the procedure nurse documentation in [facility]. > Dictated by Antelmo Thomas MD (Sand Filler) 09/23/2023 5:00 PM I, Eleazar Moran MD [...] the abdomen. 2.CT-guided placement of a 10 Afghan pigtail drainage catheter in right lower quadrant. [...] was provided with 1% Lidocaine. A 5 Afghan co-axial needle system was advanced in stages under CT guidance. Upon aspiration of fluid, the outer-sheath was advanced within the collection. A 0.035 inch guidewire was looped within the collection, and following series of dilatation/exchanges, a 10 Afghan pigtail drainage catheter was advanced into the [...] the abdomen. 2.CT-guided placement of a 10 Afghan pigtail drainage catheter in right lower quadrant. [...] was provided with 1% Lidocaine. A 5 Afghan co-axialneedle system was advanced in stages under CT guidance. Upon aspiration offluid, the outer-sheath was advanced within the collection. A 0.035 inchguidewire was looped within the collection, and following series of dilatation/exchanges, a 10 Afghan pigtail drainage catheter was advanced into the collection. The initial aspirate was a mixture of purulentdebris and blood, and approximately 10 mL of fluid were drained. An appropriate amount of aspirate was sent for ordered studies. Post-procedure limited noncontrast CT showed the catheter in satisfactory position. The patient tolerated the procedure well [facility]. There were no immediate complicationsassociated with the procedure. Impression: CT-guided placement of 10 Afghan pigtail drainage catheterin right lower quadrant, as [...] response to care. Intra-service sedation start time [id number] and end time was 1558 during which I was present. Total physician intra-service sedation time was 29 minutes. For details on pre moderate sedation and post moderate sedation patient evaluation, please reviewthe evaluation forms in [facility]. For details on monitored clinical parameters during the intra-service sedation time, please review the procedurenurse documentation in [facility]. > Dictated by Antelmo Thomas MD (Sand Filler) 09/23/2023 5:00 PM IEleazar MD have personally reviewed and interpreted this examination/study. > Interpreting Provider: Eleazar Moran MD on 09/23/2023 5:[address] ORDERABLES * CULTURE FUNGUS OTHER+FUNGUS SMEAR (09/23/2023 3:51 PM CDT) Culture No fungus isolated OMKAR 10/18/2023 10:[address] [facility] Fungus Stain No yeast or hyphae seen 10/18/2023 10:[address] [facility] Microbiology PERITONEAL FLUID / Unknown Collection / Unknown 09/23/2023 3:51 PM CDT 09/23/2023 4:21 PM CDT Shelley Pérez TACK PULLER-SEAL DELIVERY VEHICLE TEAM TECHNICIAN LAB - MICROBIOLO GY ORDERABLES [facility] [address] [place] [address], [facility] [phone] * CULTURE FLUID+GRAM STAIN (09/23/2023 3:51 PM CDT) Culture No growth OMKAR 09/27/2023 1:[address] [facility] Gram Stain Heavy Polymorphonuclear cells 09/27/2023 1:[address] [facility] Gram Stain No organisms seen 024 1:[address] [facility] Fluid PERITONEAL FLUID / Unknown Collection / Unknown 09/23/2023 3:51 PM CDT 09/23/2023 6:06 PM CDT Shelley Milind Beto [facility]-SEAL DELIVERY VEHICLE TEAM TECHNICIAN LAB - MICROBIOLO GY ORDERABLES Performing Organization Address City/[facility]/ZIP Co de Phone Number [facility] [address] [place] [address], [facility] [phone] * CULTURE ANAEROBE (09/23/2023 3:51 PM CDT) Only the most recent of2 resultswithin the time period is included. Culture No anaerobic organisms isolated OMKAR 09/29/2023 10:[address] [facility] Microbiology PERITONEAL FLUID / Unknown Collection / Unknown 09/23/2023 3:51 PM CDT 09/23/2023 4:18 PM CDT Shelley [facility]HIC[facility] TEAM TECHNICIAN LAB - MICROBIOLO GY ORDERABLES Performing Organization Address City/[facility]/ZIP Co de Phone Number [facility] [address] [place] [address], [facility] [phone] * XR CHEST 1VW PORTABLE (09/23/2023 9:08 AM CDT) Only the most recent of2 resultswithin the time period is included. Anatomical Region Laterality Modality Chest Radiographic Caroline ging 09/23/2023 9:12 AM CDT Narrative 09/23/2023 3:51 PM CDT PROCEDURE: XR CHEST 1VW PORTABLE, DATE/TIME OF EXAM: 09/23/2023 8:37 AM, LOCATION [facility] INDICATION: S27.322A: Contusion of both lungs, initial [...] Report dictated by Jg Peoples MD, MD (residential real estate appraiser). Davie Fatima MD have personally reviewed and interpreted this examination/study. > Interpreting Provider: Davie Luna MD on 09/23/2023 3:51 PM Procedure Note Davie Luna MD - 09/23/2023 PROCEDURE: XR CHEST 1VW PORTABLE, DATE/TIME OF EXAM: 09/23/2023 8:37AM, LOCATION [facility] INDICATION: S27.322A: Contusion of both lungs, initial [...] Report dictated by Jg Peoples MD, MD (residential real estate appraiser). Davie Fatima MD have personally reviewed and interpreted this examination/study. > Interpreting Provider: Davie Luna MD on 09/23/2023 3:51 PM Shelley Pérez [employer] DELIVERY VEHICLE TEAM TECHNICIAN DIAGNOSTIC IMAGI NG ORDERABLES * (ABNORMAL) CBC W/O DIFFERENTIAL (09/23/2023 2:38 AM CDT) Only the most recent of2 resultswithin the time period is included. WBC 12.9(H) 4.0 - 10.7 x10E9/L 09/23/2023 2:56 AM [facility] RBC Count 3.94 3.90 - 5.20 x10E12/L 09/23/2023 2:56 AM [facility] Hemoglobin 10.4(L) 11.9 - 15.8 g/dL 09/23/2023 2:56 AM [facility] Hematocrit 32.1(L) 34.8 - 46.1 % 09/23/2023 2:56 AM [facility] MCV 81.5 80.0 - 98.0 fL 09/23/2023 2:56 AM [facility] MCH 26.4(L) 26.7 - 33.6 pg 09/23/2023 2:56 AM [facility] MCHC 32.4 31.7 - 36.3 g/dL 09/23/2023 2:56 AM [facility] RDW-CV 13.9 11.3 - 14.8 % 09/23/2023 2:56 AM [facility] Platelet Count 356 150 - 420 x10E9/L 09/23/2023 2:56 AM [facility] MPV 10.5 7.8 - 11.4 fL 09/23/2023 2:56 AM [facility] Blood BLOOD SPECIMEN / Unknown Lab Venipuncture / Unknown 09/23/2023 2:38 AM CDT 09/23/2023 2:49 AM CDT Jesika Lutz TACK PULLER-WET END HELPER LAB - HEMATOLOGY ORDERABLES [facility] [address] [place] [address], [facility] [phone] * CT ABDOMEN PELVIS W CONTRAST (09/22/2023 [...] MD on 09/22/2023 1:34 PM Jesika Lutz TACK PULLER-W[employer] CT ORDERABLES * (ABNORMAL) CBC W AUTO DIFFERENTIAL (09/21/2023 3:59 AM CDT) Only the most recent of12 resultswithin the time period is included. WBC 11.9(H) 4.0 - 10.7 x10E9/L 09/21/2023 4:34 AM [facility] RBC Count 3.68(L) 3.90 - 5.20 x10E12/L 09/21/2023 4:34 AM [facility] Hemoglobin 9.9(L) 11.9 - 15.8 g/dL 09/21/2023 4:34 AM [facility] Hematocrit 30.4(L) 34.8 - 46.1 % 09/21/2023 4:34 AM [facility] MCV 82.6 80.0 - 98.0 fL 09/21/2023 4:34 AM [facility] MCH 26.9 26.7 - 33.6 pg 09/21/2023 4:34 AM [facility] MCHC 32.6 31.7 - 36.3 g/dL 09/21/2023 4:34 AM [facility] RDW-CV 13.9 11.3 - 14.8 % 09/21/2023 4:34 AM [facility] Platelet Count 287 150 - 420 x10E9/L 09/21/2023 4:34 AM [facility] MPV 9.9 7.8 - 11.4 fL 09/21/2023 4:34 AM [facility] Neutrophil % 71.7 41.0 - 74.0 % 09/21/2023 4:34 AM [facility] Lymphocyte % 15.0(L) 17.0 - 47.0 % 09/21/2023 4:34 AM [facility] Monocyte % 9.3 3.0 - 11.0 % 09/21/2023 4:34 AM [facility] Eosinophil % 0.8 0.0 - 7.0 % 09/21/2023 4:34 AM [facility] Basophil % 0.4 0.0 - 1.6 % 09/21/2023 4:34 AM [facility] Immature Granulocytes % 2.8(H) 0.0 - 1.0 % 09/21/2023 4:34 AM [facility] Neutrophil Absolute 8.55(H) 1.60 - 7.50 x10E9/L 09/21/2023 4:34 AM CDT [facility] Lymphocyte Absolute 1.79 1.00 - 4.40 x10E9/L 09/21/2023 4:34 AM CDT [facility] Monocyte Absolute 1.11(H) 0.15 - 1.00 x10E9/L 09/21/2023 4:34 AM CDT [facility] Eosinophil Absolute 0.09 0.00 - 0.60 x10E9/L 09/21/2023 4:34 AM CDT [facility] Basophil Absolute 0.05 0.00 - 0.13 x10E9/L 09/21/2023 4:34 AM CDT [facility] Blood BLOOD SPECIMEN / Unknown Lab Venipuncture / Unknown 09/21/2023 3:59 AM CDT 09/21/2023 4:29 AM CDT Victor Manuel Zimmerman MD LAB - HEMATOLOGY ORD ERABLES Performing Organization Address City/[facility]/ZIP Co de Phone Number [address] [address], [facility] [phone] * MAGNESIUM BLOOD (09/21/2023 3:59 AM CDT) Only the most recent of9 resultswithin the time period is included. Magnesium 1.8 1.6 - 2.6 mg/dL 09/21/2023 5:00 AM CDT [facility] Blood BLOOD SPECIMEN / Unknown Lab Venipuncture / Unknown 09/21/2023 3:59 AM CDT 09/21/2023 4:29 AM CDT Victor Manuel Zimmerman MD LAB - CHEMISTRY ORDE WALDEMAR [address] [address], [facility] [phone] * XR ABDOMEN KUB PORTABLE (09/20/2023 3:01 PM CDT) Only the most recent of2 resultswithin the time period is included. Anatomical Region Laterality Modality Abdomen Radiographic Caroline ging 09/20/2023 2:54 PM CDT Narrative 09/20/2023 4:50 PM CDT PROCEDURE: XR ABDOMEN KUB PORTABLE, DATE/TIME OF EXAM: 09/20/2023 2:03 PM, LOCATION [facility] INDICATION: R10.84: Generalized abdominal pain ADDITIONAL CLINICAL INFORMATION: Ordering Provider Reason For Exam: ng placement Technologist Note: Additional: COMPARISON: KUB dated 09/20/2023. FINDINGS/IMPRESSION: An enteral tube is present with tip overlying the left upper quadrant,likely within the gastric lumen. Report dictated by Yudelka Gamez Dr, MD (residential real estate appraiser). Davie Fatima MD have personally reviewed and interpreted this examination/study. > Interpreting Provider: Davie Luna MD on 09/20/2023 4:50 PM Procedure Note Davie Luna MD - 09/20/2023 PROCEDURE: XR ABDOMEN KUB PORTABLE, DATE/TIME OF EXAM: 09/20/2023 2:03PM, LOCATION [facility] INDICATION: R10.84: Generalized abdominal pain ADDITIONAL CLINICAL INFORMATION: Ordering Provider Reason For Exam: ng placement Technologist Note: Additional: COMPARISON: KUB dated 09/20/2023. FINDINGS/IMPRESSION: An enteral tube is present with tip overlying the left upper quadrant,likely within the gastric lumen. Report dictated by Yudelka Gamez Dr, MD (residential real estate appraiser). Davie Fatima MD have personally reviewed and interpreted this examination/study. > Interpreting Provider: Davie Luna MD on 09/20/2023 4:50 PM Victor Manuel Zimmerman MD DIAGNOSTIC IMAGING O RDERABLES * (ABNORMAL) DIFFERENTIAL MANUAL (09/17/2023 3:55 AM CDT) Only the most recent of2 resultswithin the time period is included. Neutrophil % 91(H) 41 - 74 % 09/17/2023 6:19 AM CDT [facility] Lymphocyte % 4(L) 17 - 47 % 09/17/2023 6:19 AM CDT [facility] Monocyte % 5 3 - 11 % 09/17/2023 6:19 AM CDT [facility] Neutrophil Absolute 10.10(H) 1.60 - 7.50 x10E9/L 09/17/2023 6:19 AM T [facility] Lymphocyte Absolute 0.44(L) 1.00 - 4.40 x10E9/L 09/17/2023 6:19 AM T [facility] Monocyte Absolute 0.56 0.15 - 1.00 x10E9/L 09/17/2023 6:19 AM T [facility] RBC Morphology REVIEWED 09/17/2023 6:19 AM T [facility] Microcytosis MODERATE(A) (none) 09/17/2023 6:19 AM [facility] Blood BLOOD SPECIMEN / Unknown Lab Venipuncture / Unknown 09/17/2023 3:55 AM CDT 09/17/2023 4:41 AM CDT Victor Manuel Zimmerman MD LAB - HEMATOLOGY ORD ERABLES [facility] [address] [place] [address], [facility] [phone] * (ABNORMAL) CULTURE WOUND+GRAM STAIN (09/16/2023 10:00 [...] Light Gram-positive cocci 09/20/2023 11:[address] [facility] Microbiology ABDOMEN AND PELVIS / Unknown [...] OMKAR <=1 ug/mL: Susceptible Escherichia coli Ciprofloxacin OMAKR <=0.25 ug/mL: Susceptible Escherichia coli Extended-Spectrum Beta-Lactamase [...] Zimmerman MD LAB - MICROBIOLOGY O RDERABLES [facility] [address] [place] [address], [facility] [phone] * PATHOLOGY TISSUE (09/16/2023 8:50 PM CDT) Only the most recent of2 resultswithin the time period is included. Case Report Surgical Pathology Report Case: [id number] Authorizing Provider: Victor Manuel Zimmerman MD Collected: 09/16/2023 08:50 PM Ordering Location: [facility] Received: 09/17/2023 05:01 AM Pathologist: [...] sigmoidoscopy and leak test. 09/21/2023 4:47 PM [facility] Gross Description The requisition [...] cm. The mucosa is pink-greer and flattened. Relocation Commissioner sections are submitted as follows: A1-resection margin, en face, A2-opposing resection margin, en face, A3-transmural defect, A4-prior anastomosis site, A5-flattened bowel mucosa, A6-bowel with adjacent purulent mesentery. Received in formalin, specimen 'B', is a 2.0 x 1.7 x 1.3 cm circular, pale brown-greer tissue with a suture present. The mucosa is soft and pale-greer. Relocation Commissioner sections are submitted in cassette B1. Received in formalin, specimen 'C', is a 1.9 x 1.5 x 0.8 cm circular, pale brown-greer tissue with ashly present. The mucosa is soft and pale-greer. Relocation Commissioner sections are submitted in cassette C1. [place] 09/21/2023 4:47 PM [facility] Pathologist Location at [facility] 09/21/2023 4:47 PM [facility] Disclaimer The performance characteristics of all immunohistochemical and indirect immunofluorescence stains (if any) cited in this report were determined by the Histopathology Laboratory of [facility]. Some of these tests were developed [...] attending (teaching) pathologist. 09/21/2023 4:47 PM CDT [facility] Embedded Images 09/21/2023 4:47 PM CDT [facility] Resection without Tumor PARTIAL RESECTION [...] - PATHOLOGY/CYTO LOGY ORDERABLES Performing Organization Address City/[facility]/ZIP Co de Phone Number [facility] [address] [facility] ([place], [place] [address], [facility] [phone] * TYPE + SCREEN PANEL (09/16/2023 8:15 PM CDT) Only the most recent of2 resultswithin the time period is included. Antibody Screen NEG 9:01 PM CDT [facility] ABO Rh A POS 09/16/2023 9:01 PM CDT [facility] Blood Bank BLOOD SPECIMEN / Unknown 09/16/2023 8:15 PM CDT 09/16/2023 8:19 PM CDT Mindy Eaton MD LAB - BLOOD BANK ORD ERABLES Performing Organization Address [facility]/ZIP Co de Phone Number [facility] [address] [phone], [facility] [phone] * ETT LINE PERFORMABLE (09/16/2023 7:55 PM CDT) Narrative Ian Townsend DO - 09/16/2023 7:55 PM CDT Ian Townsend DO 09/16/2023 7:56 PM Endotracheal Tube Placement: Patient Location: OR. Intubation Event Date/Time: 09/16/2023 7:47 PM Procedure: intubation (75116). Procedure Section: Sedation: IV sedation. Indications for [...] PM. > Dictated by Charles Campo DO (residential real estate appraiser). I, Darío Moore MD have personally reviewed and interpreted this examination/study. > Interpreting Provider: Darío Moore MD on 09/16/2023 9:25 PM Narrative 09/16/2023 9:25 PM CDT PROCEDURE: CT ABDOMEN PELVIS WO CONTRAST, DATE/TIME OF EXAM: 09/16/2023 6:03 PM, LOCATION [facility] INDICATION: R10.84: Abdominal pain, generalized ADDITIONAL CLINICAL [...] DATE/TIME OF EXAM: 09/16/2023 6:03 PM, LOCATION [facility] INDICATION: R10.84: Abdominal pain, generalized ADDITIONAL CLINICAL [...] PM. > Dictated by Charles Campo, DO (residential real estate appraiser). I, Darío Moore MD have personally reviewed and interpreted this examination/study. > Interpreting Provider: Darío Moore MD on 09/16/2023 9:25 PM Sai Hernandez MD CT ORDERABLES * CULTURE BLOOD (09/16/2023 4:39 PM CDT) Only the most recent of2 resultswithin the time period is included. Culture No growth day 5 OMKAR 09/21/2023 7:[address] [facility] Blood PERIPHERAL BLOOD / Unknown Venipuncture / Unknown 09/16/2023 4:39 PM CDT 09/16/2023 4:48 PM CDT Sai Hernandez MD LAB - MICROBIOLOGY O RDERABLES [facility] [address] [place] [address], [facility] [phone] * (ABNORMAL) C-REACTIVE PROTEIN (09/16/2023 4:29 PM CDT) Only the most recent of2 resultswithin the time period is included. C-Reactive Protein 5.2(H) <=0.5 mg/dL 09/16/2023 5:15 PM CDT [facility] Blood BLOOD SPECIMEN / Unknown Venipuncture / Unknown 09/16/2023 4:29 PM CDT 09/16/2023 4:51 PM CDT Victor Manuel Zimmerman MD LAB - CHEMISTRY SUSANA MEDEIROS [facility] [address] [place] [address], [place] [phone] * (ABNORMAL) URINE MICROSCOPIC ONLY REFLEX TO CULTURE (09/16/2023 2:01 PM CDT) Reflex Status Culture not indicated 09/16/2023 2:34 PM CDT [facility] RBC UA 0-2 None Seen, 0-2, 3-5 /HPF 09/16/2023 2:34 PM CDT [facility] WBC UA 0-5 None Seen, 0-5 /HPF 09/16/2023 2:34 PM T [facility] Bacteria UA Trace(A) None /HPF 09/16/2023 2:34 PM T [facility] Squamous Epithelial Cells UA 0-2 None Seen, 0-2, 3-5 /HPF 09/16/2023 2:34 PM T [facility] Urine URINE SPECIMEN OBTAINED BY CLEAN CATCH PROCEDURE / Unknown Collection / Unknown 09/16/2023 2:01 PM CDT 09/16/2023 2:[address] [facility] - 09/16/2023 2:34 PM CDT Obinna Marte MD LAB - URINALYSIS ORD ERABLES [facility] [address] [place] [address], [facility] [phone] * (ABNORMAL) URINALYSIS REFLEX MICROSCOPIC REFLEX CULTURE (09/16/2023 2:01 PM CDT) Color UA Yellow Straw, Yellow 09/16/2023 2:28 PM [facility] Clarity UA Clear Clear 09/16/2023 2:28 PM [facility] Specific [place] UA 1.017 1.005 - 1.030 09/16/2023 2:28 PM [facility] pH UA 6.0 5.0 - 8.0 pH 09/16/2023 2:28 PM [facility] Protein UA Negative Negative 09/16/2023 2:28 PM [facility] Glucose UA Negative Negative 09/16/2023 2:28 PM [facility] Ketone UA Negative Negative 09/16/2023 2:28 PM [facility] Bilirubin UA Negative Negative 09/16/2023 2:28 PM [facility] Blood UA 1+(A) Negative 09/16/2023 2:28 PM [facility] Nitrite UA Negative Negative 09/16/2023 2:28 PM [facility] Leukocyte Esterase Negative Negative 09/16/2023 2:28 PM [facility] Urobilinogen UA Negative Negative mg/dL 09/16/2023 2:28 PM CDT [facility] Urine URINE SPECIMEN OBTAINED BY CLEAN CATCH PROCEDURE / Unknown Collection / Unknown 09/16/2023 2:01 PM CDT 09/16/2023 2:03 PM CDT Narrative [facility] - 09/16/2023 2:28 PM CDT Obinna Marte MD LAB - URINALYSIS ORD ERABLES Performing Organization Address City/[facility]/ZIP Co de Phone Number [address] [address], [facility] [phone] * LACTIC ACID BLOOD REFLEX TO REPEAT (09/16/2023 11:21 AM CDT) Pathologist [facility] Lactic Acid-Stat 1.2 <=2.0 mmol/L 09/16/2023 11:58 AM CDT [facility] Blood BLOOD SPECIMEN / Unknown Venipuncture / Unknown 09/16/2023 11:21 AM CDT 09/16/2023 11:31 AM CDT Rosmery Khan PA-C LAB - CHEMISTRY OR DERABLES Performing Organization Address [facility]/ZIP Co de Phone Number [address] [address], [place] [phone] * (ABNORMAL) COMPREHENSIVE METABOLIC PANEL (09/16/2023 11:21 AM CDT) Only the most recent of2 resultswithin the time period is included. BUN 17 7 - 26 mg/dL 09/16/2023 12:09 PM T [facility] Creatinine 0.87 0.56 - 0.96 mg/dL 09/16/2023 12:09 PM T [facility] Sodium 140 136 - 145 mmol/L 09/16/2023 12:09 PM T [facility] Potassium 3.9 3.5 - 4.5 mmol/L 09/16/2023 12:09 PM T [facility] Chloride 104 98 - 107 mmol/L 09/16/2023 12:09 PM [facility] CO2 25 22 - 29 mmol/L 09/16/2023 12:09 PM [facility] Glucose 149(H) 70 - 115 mg/dL 09/16/2023 12:09 PM [facility] Calcium 9.4 8.4 - 10.2 mg/dL 09/16/2023 12:09 PM [facility] Protein Total 7.1 6.0 - 8.3 g/dL 09/16/2023 12:09 PM [facility] Albumin 3.5 3.4 - 5.0 g/dL 09/16/2023 12:09 PM [facility] Bilirubin Total <0.5 0.2 - 1.2 mg/dL 09/16/2023 12:09 PM [facility] Alkaline Phosphatase 21(L) 40 - 150 U/L 09/16/2023 12:09 PM [facility] ALT 41 5 - 55 U/L 09/16/2023 12:09 PM [facility] AST 24 5 - 34 U/L 09/16/2023 12:09 PM [facility] Anion Gap 11 6 - 16 09/16/2023 12:09 PM [facility] BUN/Creatinine Ratio 20 7 - 23 09/16/2023 12:09 PM [facility] Osmolality Calculated 294 275 - 295 mOsm/kg 09/16/2023 12:09 PM [facility] Albumin/Globulin Ratio 1.0(L) 1.1 - 2.3 09/16/2023 12:09 PM [facility] eGFR by CKD-EPI >90 >=90 mL/min/1.7 3 m2 09/16/2023 12:09 PM [facility] Blood BLOOD SPECIMEN / Unknown Venipuncture / Unknown 09/16/2023 11:21 AM T 09/16/2023 11:31 AM [facility] Rosmery Khan PA-C LAB - CHEMISTRY OR DERABLES [facility] [address] [place] [address] [phone] * HCG BETA BLOOD QUANTITATIVE (09/16/2023 11:21 AM CDT) Only the most recent of3 resultswithin the time period is included. [facility] Beta-hCG Total Quantitative <3 mIU/mL 09/16/2023 12:16 PM CDT [facility] Comment: HCG Numeric Result Interpretation: Non- [...] - CHEMISTRY OR DERABLES Performing Organization Address [facility] Co de Phone Number [address] [address], [facility] [phone] * LIPASE BLOOD (09/16/2023 11:21 AM CDT) Only the most recent of2 resultswithin the time period is included. [facility] Lipase 14 8 - 78 U/L 09/16/2023 12:05 PM CDT [facility] Blood BLOOD SPECIMEN / Unknown Venipuncture / Unknown 09/16/2023 11:21 AM CDT 09/16/2023 11:31 AM CDT Narrative [facility] - 09/16/2023 12:05 PM CDT Lipase results from the [employer] analyzer may not be comparable with other methodologies. Rosmery Khna PA-C LAB - CHEMISTRY OR DERABLES Performing Organization Address City/[facility] Co de Phone Number [address] [address], [facility] [phone] * CT ANGIO ABDOMEN (09/10/2023 8:33 AM [employer]ATION [employer]ENT) Anatomical Region Laterality Modality Abdomen Computed Tomogra phy 09/10/2023 8:38 AM [employer] Impressions 09/10/2023 10:17 AM [employer] Impression: 1.Discrete contour irregularity of the SMA [...] > Dictated by Milan Li MD, MD (residential real estate appraiser). I, Winifred Guzman MD have personally reviewed and interpreted this examination/study. > Interpreting Provider: Winifred Guzman MD on 09/10/2023 10:17 AM Narrative 09/10/2023 10:17 AM [employer]ATION [employer] PROCEDURE: CT ANGIO ABDOMEN, DATE/TIME OF EXAM: 09/10/2023 8:33 AM, LOCATION [facility] INDICATION: S36.899A: Traumatic hemoperitoneum, initial encounter ADDITIONAL [...] DATE/TIME OF EXAM: 09/10/2023 8:33 AM, LOCATION [facility] INDICATION: S36.899A: Traumatic hemoperitoneum, initial encounter ADDITIONAL [...] opacities > Dictated by Milan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
--- OUTSIDE RECORDS SUMMARY | 2024-09-15 12:27 | XMS_ITS | Clinical Summary ---
Author Organization [facility] Address [address] [place] [address] Phone Care Team Providers Care Artist And Repertoire Manager Name Role Phone Chelsie Parra PARACHUTE/COMBATANT DIVER OFFICER, BLACK TOP RAKER Primary Care Provider + Allergies Active Allergy [...] 09/10/2024 5:38 PM CDT Emergency [facility] Emergency [address] [place] [address] Milan May, PAC Influenza B Discharge Disposition: Discharged to home or Selfcare 09/10/2024 Travel from Last 3 Months Immunizations Immunization Administration Dates Next Due Covid-19, Mrna, Lnp-s, Pf, 3 0 Mcg/0.3 Ml Dose ([employer]) 12/20/2020,11/29/2020 DTAP VACCINE 06/20/2007, 3,2002,08/29 DTAP VACCINE, [...] Occasionally, 3-4 times per month, [facility] [employer] Answer Date Recorded In the past 12 months has [employer], gas, oil, or water [employer] threatened to shut off services in your [...] How often do you attend chur or jain services? More than 4 times per year 01/30/2024 Do you belong to any clubs o r organizations such as mu-ism groups, unions, fraternal or athletic groups, or [...] medical care, and heating? Very hard 01/30/2024 [facility]ational Stress Questionnaire Answer Date [...] any time in the past 12 m [facility], were you homeless or living in a group home (including now)? Yes 01/30/2024 Sexually Active Control [...] BY PCR (09/10/2024 4:15 PM CDT) Pathologist [facility] GROUP A STREP BY PCR NOT DETECTED NOT DETECTED 09/10/2024 5:08 PM CDT [facility] Swab STRUCTURE OF ANTERIOR PORTION OF NECK / Unknown Non-Phlebotomy Collection / Unknown 09/10/2024 4:15 PM CDT 09/10/2024 4:33 PM CDT us Milan May PAC MICROBIOLOGY - GENER AL ORDERABLES Final Result [facility] [address] [place] [address] * (ABNORMAL) RSV,SARS-COV-2,INFLUENZA A&B BY PCR (09/10/2024 4:15 PM CDT) FLU A Negative Negative, Error 09/10/2024 5:15 PM CDT [facility] FLU B Positive(A) Negative 09/10/2024 5:15 PM CDT [facility] RESP SYNC VIRUS Negative Negative 5:15 PM CDT [facility] SARSCOV2 NOT DETECTED (Reference Range for this test is Not Detected) 09/10/2024 5:15 PM CDT [facility] Comment:This test was perfor med by a Reverse Product Safety Associate PCR Method. Swab NASOPHARYNGEAL STRUCTURE / Unknown Non-Phlebotomy Collection / Unknown 09/10/2024 4:15 PM CDT 09/10/2024 4:33 PM CDT Milan May PAC MICROBIOLOGY - GENER AL ORDERABLES Final Result Performing Organization Address City/[facility]/ZIP Co de Phone Number [facility] [address] [place] [address] * HEPATITIS C ANTIBODY (02/22/2024 3:11 PM CDT) hepatitis C antibody 0.07 <1 S/CO 02/22/2024 9:[address] [facility] Comment: Signal/Cutoff ratio < 0.79 is Nondetected Signal/Cutoff ratio 0.80-0.99 is Grayzone Signal/Cutoff ratio > 0.99 is Detected Supplemental assays are recommended if signal/cutoff ratio is >/=1.00. Signal/cutoff ratio result >/= 5.00 is 97% predictive of positivity for recombinant immunoblot assay (RIBA) and will be reported to the [place] Department of Public [facility] as required. Blood Venipuncture / Unknown 02/22/2024 3:11 PM CDT 02/22/2024 3:15 PM CDT Chelsie Parra PARACHUTE/COMBATANT DIVER OFFICER, BLACK TOP RAKER CHEMISTRY ORDERABLES Fin al Result Performing Organization Address City/[facility] Co de Phone Number [facility] [address] [place] [address], from Last 3 Months or Most Recently Relevant to Health Maintenance Additional Health Concerns Infection Onset Date Last Indicated Influenza 09/10/2024 09/10/2024 Insurance MEDICAID [place] Care Teams Artist And Repertoire Manager Relationship Specialty Start Date End Date Chelsie Parra, PARACHUTE/COMBATANT DIVER OFFICER, BLACK TOP RAKER [address] [place] [address] PCP - General Advanced Practice Nurse 12/27/23
--- OUTSIDE RECORDS SUMMARY | 2024-09-15 12:27 | XMS_ITS | Referral Summary ---
Author Organization [facility] [employer] Address [address] [place] [address] Care Team Providers Care Rn Medical Inpatient Services Name Role Phone Provider, No Pcp Primary Care Provider Unavailab le Source Comments [facility] [employer],non-owned Affiliates and Associated Physician Practices is amultiple site organization consisting of ambulatory clinics and hospital sitesin [place], [place], [place] and [place]. This disclosure is being madepursuant to the Care Everywhere program and may not contain all information available regarding this patient. Last updated 18.[facility] [employer] Allergies Active Allergy Reactions Criticality Noted Date [...] Date Recorded PHQ2 TOTAL SCORE 2 08/16/2021 [facility] - Occupational [...] place to sleep or slept in a snf (including now)? Yes 09/17/2023 Sex and Gender Information Value Date Recorded Sex Assigned at Female 08/16/2021 9:43 AM WRAPPER REWINDER Gender Identity Female 08/16/2021 9:43 AM WRAPPER REWINDER Sexual Orientation Bisexual 08/16/2021 9: 43 AM WRAPPER REWINDER Last Filed Vital Signs Vital Sign Reading [...] Resulting Agency Comment Lab Testing performed at: Lab[address] [id number] Tonie Garcia MD LAB - MICROBIOLOGY O RDERABLES [facility] INSURANCE BILL [address] [place] [address] from Last 3 Months or Most Recently Relevant to Health Maintenance Advance Directives * Full Code (Latest Code Status on File) Date Activated Date Inactivated Comments 09/17/2023 7:49 AM 09/25/2023 11:43 AM * Full Code Date Activated Date Inactivated Comments 09/17/2023 3:28 AM 09/17/2023 3:29 AM * Full Code Date Activated Date Inactivated Comments 09/08/2023 5:46 PM 09/11/2023 10:57 AM Care Teams Rn Medical Inpatient Services Relationship Specialty Start Date End Date Provider, No Pcp PCP - General 09/08/23
--- OUTSIDE RECORDS SUMMARY | 2024-09-15 12:27 | XMS_ITS | Encounter Summary ---
Author Organization [facility] Address [address] [place] [address] Care Team Providers Care Terminal Operations Supervisor Name Role Phone Paula Crockett Primary Care Provider [phone] Josefina Hess MD Primary Care Provider [phone] Encounter Details Date Type Department Care Team (Late st Contact Info) Description 2002 Abstract SFL CONVERSION [address] [place] [address] , Generic Conversion, Social History Tobacco Use Types Packs/Day Years Used Date Smoking Tobacco: Never Assessed Comments Unknown Sex and Gender Information Value Date Recorded Sex Assigned at Female 08/17/2024 8:56 AM PEDIATRIC ONCOLOGIST Legal Sex Female 7:06 AM CDT Gender Identity Not on file Sexual Orientation Not on file documented as of this encounter Plan of Treatment Not on file documented as of this encounter Visit Diagnoses Not on filedocumented in this encounter Additional Health Concerns Infection Onset Date Last Indicated Resolved Time COVID-19 Rule Out 02/02/2023 02/02/2023 02/02/2023 7:09 PM CDT COVID-19 Rule Out 06/29/2024 06/29/2024 06/29/2024 6:10 PM PEDIATRIC ONCOLOGIST Influenza - Seasonal 06/29/2024 06/29/2024 025 12:32 AM PEDIATRIC ONCOLOGIST documented as of this encounter Care Teams Terminal Operations Supervisor Relationship Specialty Start Date End Date Paula Crockett FNP PCP - General NURSE PRACTITIONER 12/01/22 12/30/22 Josefina Hess MD [address] [place] [address] PCP - General FAMILY PRACTICE 12/31/22 documented as of this encounter
--- OUTSIDE RECORDS SUMMARY | 2024-09-15 12:27 | XMS_ITS | Referral Summary ---
Author Organization [facility] Address [address] [place] [address] Care Team Providers Care Teletype Technician Name Role Phone Chencho Teran MD Primary Care Provider [phone] Allergies Active Allergy Reactions Criticality Noted [...] procedures: - 09/07 exlap, sigmoidectomy, primary anastomosis ([facility]) - 09/15 re-exploration, resection of previous anastomosis for leak, descending colon to rectum primary anastomosis, pedicled omental flap, clean closure ([facility]) - 09/23 IR drain for intra-abdominal fluid collection/abscess Intra-abdominal abscess 10/25/2023 Assessment & Plan (10/25/2023 11:39 AM CDT): RLQ fluid collection s/p bowel resection c/b anastomotic leak requiring re-exploration and additional resection. Initial IR drain placement at [facility] on 09/23, presented to [facility] ED 3 weeks ago with [...] on file Legal Sex Female 3:30 AM ARMATURE WINDER Gender Identity Not on file Sexual Orientation [...] LAB BLOOD ORDERABLES Final Resul t [facility] [place] [address] from Last 3 Months or Most Recently Relevant to Health Maintenance Insurance [employer] EXCHANGE BLUE [employer] EXCHANGE [facility] Advance Directives For more information, please contact: [phone] * Full Code (Latest Code Status on File) Date Activated Date Inactivated Comments 10/25/2023 6:12 AM 10/25/2023 7:55 PM Care Teams Teletype Technician Relationship Specialty Start Date End Date Chencho Teran MD [address] [address] PCP - General Family Medicine 10/25/23
--- NOTE | 2024-09-15 12:39 | ED_ITS ---
HPI - URI/Sore Throat General Chief Complaint: Upper Respiratory Infection Stated Complaint: cough, congestion, fever Time Seen by Provider: 09/15/24 12:01 History of Present Illness HPI Narrative: 24-year-old otherwise healthy female presenting to the emergency room for evaluation of cough, fever, chills, nauseousness and vomiting. She was diagnosed with influenza B approximately 8 days prior and states that she is not getting any better. Has not tried any antibiotics, qlmo-zea-fkuhxso flu or cold medicines and has been taking Tylenol and Advil at home. Denies any diarrhea constipation, no abdominal pain or back pain. No recent injuries or illnesses. No recent hospitalizations. No recent antibiotics or urinary symptoms. Denies chance of . Related Data Allergies Allergy/AdvReac Type Severity Reaction Status Date / Time amoxicillin Allergy Mild Nausea Verified 09/15/24 10:09 clavulanic acid Allergy Mild Nausea Verified 09/15/24 10:09 ziprasidone Allergy Unknown VOMITING/RA Verified 09/15/24 10:09 SH doxycycline AdvReac Other Verified 09/15/24 10:09 AMOXICILLIN TRIHYDRATE Allergy Unknown Nausea and Uncoded 09/15/24 10:09 Vomiting Review of Systems 2 Review of Systems: As reviewed above in HPI Exam 2 Narrative: GENERAL: [Well-appearing, well-nourished, and in no acute distress.] HEAD: [Normocephalic, atraumatic.] EYES: [PERRLA and EOMI.] ENT: Nares clear, no rhinorrhea or epistaxis. Mucous membranes moist. NECK: Supple. CHEST: Coarse left-sided breath sounds but not any acute distress, mild tachypnea answer all questions appropriately. HEART: [Regular rate and rhythm]. No murmur heard. [Normal peripheral pulses.] ABDOMEN: [Soft, nondistended], [nontender], [No rigidity or guarding] EXTREMITIES: Normal range of motion. [No edema.] SKIN: Warm, dry, no rash. NEURO: [No focal deficits]. Alert and oriented [x3.] PSYCH: [Normal mood and affect.] Course Vital Signs Vital signs: Vital Signs Temperature 37.4 C 09/15/24 10:11 Pulse Rate 103 H 09/15/24 10:11 Respiratory Rate 22 H 09/15/24 10:11 Blood Pressure 118/82 09/15/24 10:11 Pulse Oximetry 99 03/14/25 10:11 Oxygen Delivery Room Air 09/15/24 10:11 Temperature 37.5 C 09/15/24 13:41 Pulse Rate 105 H 09/15/24 13:41 Respiratory Rate 19 09/15/24 13:41 Blood Pressure 118/82 09/15/24 10:11 Pulse Oximetry 98 09/15/24 13:41 Oxygen Delivery Room Air 09/15/24 13:08 MDM - URI/Sore Throat MDM Narrative Medical decision making narrative: 24-year-old otherwise healthy female presenting with upper respiratory infection symptoms for last 8 days. Recently diagnosed with influenza B. Experiencing vomiting, fever, headache and some shortness of breath, states that she has been having posttussive emesis. Not any acute distress, mildly tachycardic and tachypneic but normal blood pressure. She is afebrile in triage, saturating 99% on room air. Considerations presently are for upper respiratory infection, lower respiratory infection, bronchitis, pneumonia, COVID, flu. Workup was ordered including a two-view chest x-ray and CBC, CMP, COVID flu and RSV panel. She was provided Toradol, fluid bolus. I independently reviewed patient's two-view chest x-ray for indications of shortness of breath and cough. She appears to have a left-sided lower lobe pneumonia. No pneumothorax or cardiomegaly. Will start her on IV antibiotics given that this is approximately 8 days of symptoms and she was given a dose of ceftriaxone and azithromycin. She did develop a fever here in the emergency department for which Tylenol was provided. Laboratory studies pending. Patient will be re-evaluated and assessed for outpatient follow-up and discharged on antibiotics if she is improved. Workup shows a leukocytosis of 15.4, normal hemoglobin, normal platelet count. Electrolytes within normal limits, normal renal function, normal hepatic function. Normal glucose. Patient tested positive for influenza B, not septic appearing. radiology confirms chest x-ray findings of left lower lobe pneumonia. Patient has improved with her treatments here and can be safely discharged home with Levaquin for 5 days given her allergy profile. Medical Records Attestation: I reviewed the patient's medical records. Lab Data Attestation: I reviewed the patient's lab results. 09/15/24 12:57 09/15/24 12:57 Labs: Lab Results 09/15/24 09/15/24 Range/Units 12:24 12:57 WBC 15.4 H (4.5-10.0) K/mm3 RBC 4.83 (4.2-5.4) M/mm3 Hgb 12.3 (12.0-15.0) g/dL Hct 39.4 (37.0-47.0) % MCV 81.6 (80-100) fl MCH 25.5 L (26-34) pg MCHC 31.2 L (32-36) g/dl RDW 15.3 H (11.5-14.5) % Plt Count 230 (150-375) k/mm3 MPV 10.8 H (7.4-10.4) fl Immature Gran % (Auto) 2.7 H (0-0.5) % Neut % (Auto) 82.8 H (45.5-73.1) % Lymph % (Auto) 9.4 L (18.3-44.2) % [place]leigh % (Auto) 4.7 (2.6-8.5) % Eos % (Auto) 0.1 (0-4.4) % Baso % (Auto) 0.3 (0.2-1.2) % Lymph # (Auto) 1.44 (0.9-3.2) K/mm3 [place] # (Auto) 0.7 H (0.1-0.6) K/mm3 Eos # (Auto) 0.0 (0-0.3) K/mm3 Baso # (Auto) 0.0 (0.0-0.1) K/mm3 Abs Immat Gran (auto) 0.41 H (0.00-0.031) K/mm3 Absolute Neuts (auto) 12.7 H (1.3-6.7) K/mm3 Absolute Nucleated RBC 0.000 (0.0-0.012) K/mm3 Nucleated RBC % 0.0 (0.0-0.2) % Sodium 139 (137-145) mmol/L Potassium 3.4 (3.4-5.0) mmol/L Chloride 99 (98-107) mmol/L Carbon Dioxide 27 (22-30) mmol/L Anion Gap 13 H (4-12) mmol/L BUN 17 (7-17) mg/dL Creatinine 0.79 (0.7-1.0) mg/dL Estim Creat Clear Calc 111 ml/min Estimated GFR > 60 (59 - ) Glucose 86 (65-110) mg/dL Calcium 8.8 (8.4-10.2) mg/dL Total Bilirubin 0.6 (0.2-1.3) mg/dL AST 28 (14-36) U/L ALT 29 (6-35) U/L Alkaline Phosphatase 34 L (38-126) U/L Total Protein 7.0 (6.3-8.2) g/dL Albumin 3.8 (3.5-5.1) g/dL Influenza A (RT-PCR) Negative (Negative) Influenza B (RT-PCR) Positive A (Negative) SARS-CoV-2 RNA (RT-PCR) Negative (Negative) Imaging Data Attestation: I personally reviewed and interpreted this imaging study as follows: My impression: Impressions Chest X-Ray 09/15/24 12:18 IMPRESSION: 1. Left lower lobe pneumonia. Discharge Plan Discharge Clinical Impression: Community acquired pneumonia, Influenza B Patient Disposition: Home, Self-Care Condition: Stable Instructions: Antibiotic Form, Influenza (DC), Community Acquired Pneumonia (DC) Additional Instructions: You tested positive for influenza and you also have a left-sided lower lobe pneumonia. We will treat this with oral antibiotics for next 5 days and sent the prescription to your pharmacy. Continue taking Tylenol ibuprofen for any fever or pain. Znbg-jps-xocxmnw flu and cold symptom medications for symptom control. Return with any new or worsening concerns. Patient Language: Maltese Prescriptions: New levofloxacin 750 mg tablet 750 mg PO DAILY 5 Days Qty: 5 0RF ondansetron 4 mg tablet,disintegrating 4 mg PO Q8H PRN (Reason: nausea and vomiting) Qty: 10 0RF guaifenesin [Mucinex] 1,200 mg tablet extended release 12hr 1,200 mg PO Q12H Qty: 20 0RF No Action hydrocodone-acetaminophen 5-325 mg tablet 1 tablet PO Q6H PRN (Reason: pain) Qty: 14 0RF Follow-up/Referrals: Chelsie Parra RN [Primary Care Provider] - Time of Disposition: 13:48
[2024-09-15] MEDS: KETOROLAC 15 MG/ML VIAL (*BKC) IV PUSH (12:54)
[2024-09-15] MEDS: ACETAMINOPHEN 500 MG TABLET 1000 MG PO (12:55)
[2024-09-15] MEDS: SODIUM CHLORIDE 0.9% IV 1,000 ML 999 ML IV CONT (12:55)
[2024-09-15] MEDS: AZITHROMYCIN 500 MG/NS 250 ML 500 MG/250 ML BAG 250 MG IVPB (13:04)
[2024-09-15 13:05] LABS: Basophils Percent Auto 0.3 % (0.2-1.2); Eosinophils Percent Auto 0.1 % (0-4.4); Hematocrit 39.4 % (37.0-47.0); Hemoglobin 12.3 g/dL (12.0-15.0); Immature Granulocyte Absolute 0.41 K/mm3 (0.00-0.031); Immature Granulocyte Percent A 2.7 % (0-0.5); Lymphocytes Absolute Auto 1.44 K/mm3 (0.9-3.2); Lymphocytes Percent Auto 9.4 % (18.3-44.2); Mean Corpuscular HGB Conc 31.2 g/dl (32-36); Mean Corpuscular Hemoglobin 25.5 pg (26-34); Mean Corpuscular Volume 81.6 fl (80-100); Mean Platelet Volume 10.8 fl (7.4-10.4); Monocytes Absolute Auto 0.7 K/mm3 (0.1-0.6); Monocytes Percent Auto 4.7 % (2.6-8.5); Neutrophils Absolute Auto 12.7 K/mm3 (1.3-6.7); Neutrophils Percent Auto 82.8 % (45.5-73.1); Platelet Count Result 230 k/mm3 (150-375); Red Blood Count 4.83 M/mm3 (4.2-5.4); Red Cell Distribution Width 15.3 % (11.5-14.5); White Blood Count 15.4 K/mm3 (4.5-10.0)
[2024-09-15 13:14] LABS: Influenza A QL RT-PCR Negative (Negative); Influenza B QL RT-PCR Positive (Negative); SARS-CoV-2 RNA PCR Negative (Negative)
[2024-09-15 13:26] LABS: Alanine Aminotransferase 29 U/L (6-35); Albumin Level 3.8 g/dL (3.5-5.1); Alkaline Phosphatase 34 U/L (38-126); Anion Gap 13 mmol/L (4-12); Aspartate Amino Transferase 28 U/L (14-36); Bilirubin,Total 0.6 mg/dL (0.2-1.3); Blood Urea Nitrogen 17 mg/dL (7-17); Calcium 8.8 mg/dL (8.4-10.2); Carbon Dioxide 27 mmol/L (22-30); Chloride 99 mmol/L (98-107); Estimated CRCL calculation 111 ml/min; Estimated Glomerular Filt Rate > 60; Glucose 86 mg/dL (65-110); Potassium 3.4 mmol/L (3.4-5.0); Sodium 139 mmol/L (137-145)
[2024-09-15 13:41] VITALS: PULSE 105; RESP 19; TEMP 37.5; O2SAT 98
[2024-09-15 14:17] VITALS: BP 122/75; PULSE 101; RESP 19; TEMP 37.3; O2SAT 99
== END 2024-09-15 14:19 | disposition home or self-care (01) ==
PROVIDERS: Emergency Provider Student in an Organized Health Care Education/Training Program
DX: J18.9 Pneumonia, unspecified organism (principal); J10.1 Influenza due to other identified influenza virus with other respiratory manifestations; Z20.822 Contact with and (suspected) exposure to COVID-19
CPT/HCPCS: 36415; 71046; 80053; 85025; 87636; 96365; 96367; 96375; 99284; A9270; J0456; J0696; J1885; J7030

== ENCOUNTER 2024-09-18 09:43 | Emergency (ER) | payer OTHER, SELFPAY ==
--- NOTE | ~2024-09-18 | XR_ITS ---
EXAMINATION: XR chest 2V DATE: 09/18/2024 12:50 INDICATION: Back pain and cough TECHNIQUE: PA and lateral views of the chest were obtained. COMPARISON: Chest radiograph dated 09/15/2024 FINDINGS: No significant interval change in consolidation in the posterior and lateral basilar left lower lobe. No new airspace opacities, pulmonary edema, pleural effusion or pneumothorax. The cardiomediastinal silhouette is normal. Visualized bones and soft tissues are unremarkable. IMPRESSION: 1. No significant change in left lower lobe pneumonia. Reviewed, dictated and finalized at location A.
[2024-09-18 10:14] VITALS: BP 125/81; PULSE 77; RESP 15; TEMP 36.9; O2SAT 100
--- OUTSIDE RECORDS SUMMARY | 2024-09-18 10:49 | XMS_ITS | Clinical Summary ---
Author Organization [facility] Address [address] [place] [address] Care Team Providers Care Spreader Operator Automatic Name Role Phone Chencho Teran MD Primary Care Provider [phone] Allergies Active Allergy Reactions Criticality Noted [...] procedures: - 09/07 exlap, sigmoidectomy, primary anastomosis ([facility]) - 09/15 re-exploration, resection of previous anastomosis for leak, descending colon to rectum primary anastomosis, pedicled omental flap, clean closure ([facility]) - 09/23 IR drain for intra-abdominal fluid collection/abscess Intra-abdominal abscess 10/25/2023 Assessment & Plan (10/25/2023 11:39 AM CDT): RLQ fluid collection s/p bowel resection c/b anastomotic leak requiring re-exploration and additional resection. 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 Gender Identity Not on file Sexual [...] t [facility] [place] [address] from Last 3 Months or Most Recently Relevant to Health Maintenance Insurance [facility] [place] [place] [address] BLUE [employer] EXCHANGE Member Subscriber Plan / Payer (Ef fective 2023-Present) Name:Patricia New Relation to Subscriber:Self Name:Patricia New Payer ID:[id number] (NAIC) Type:HEALTHCARE/EXCHANGE Address: [facility] [id number] [address] Advance Directives For more information, please contact: [phone] * Full Code (Latest Code Status on File) Date Activated Date Inactivated Comments 10/25/2023 6:12 AM 10/25/2023 7:55 PM Care Teams Spreader Operator Automatic Relationship Specialty Start Date End Date Chencho Teran MD [address] [address] PCP - General Family Medicine 10/25/23
--- OUTSIDE RECORDS SUMMARY | 2024-09-18 10:49 | XMS_ITS | Referral Summary ---
Author Organization [facility] [employer] Address [address] [place] [address] Care Team Providers Care Hand Spring Repairer Name Role Phone Provider, No Pcp Primary Care Provider Unavailab le Source Comments [facility] [employer],non-owned Affiliates and Associated Physician Practices is amultiple site organization consisting of ambulatory clinics and hospital sitesin [place], [place], [place] and [place]. This disclosure is being madepursuant to the Care Everywhere program and may not contain all information available regarding this patient. Last updated 18.[facility] [employer] [facility] Allergies Active Allergy Reactions Criticality Noted Date [...] Date Recorded PHQ2 TOTAL SCORE 2 08/16/2021 [facility] - [...] place to sleep or slept in a penitentiary (including now)? 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 COLLECTIONS SPECIALIST Gender Identity Female 08/16/2021 9:43 AM CREDIT COLLECTIONS SPECIALIST Sexual Orientation Bisexual 08/16/2021 9: 43 AM CREDIT COLLECTIONS SPECIALIST Last Filed Vital Signs Vital Sign Reading [...] Resulting Agency Comment Lab Testing performed at: [address] [id number] Tonie Garcia MD LAB - MICROBIOLOGY O RDERABLES [facility] INSURANCE BILL [address] [place] [address] from Last 3 Months or Most Recently Relevant to Health Maintenance Advance Directives * Full Code (Latest Code Status on File) Date Activated Date Inactivated Comments 09/17/2023 7:49 AM 09/25/2023 11:43 AM * Full Code Date Activated Date Inactivated Comments 09/17/2023 3:28 AM 09/17/2023 3:29 AM * Full Code Date Activated Date Inactivated Comments 09/08/2023 5:46 PM 09/11/2023 10:57 AM Care Teams Hand Spring Repairer Relationship Specialty Start Date End Date Provider, No Pcp PCP - General 09/08/23
--- OUTSIDE RECORDS SUMMARY | 2024-09-18 10:49 | XMS_ITS | Encounter Summary ---
Author Organization [facility] Address [address] [place] [address] Care Team Providers Care Metrologist Name Role Phone Paula Crockett Primary Care Provider [phone] Josefina Hess MD Primary Care Provider [phone] Encounter Details Date Type Department Care Team (Late st Contact Info) Description 2002 Abstract SFL CONVERSION [address] [place] [address] , Generic Conversion, Social History Tobacco Use Types Packs/Day Years Used Date Smoking Tobacco: Never Assessed Comments Unknown Sex and Gender Information Value Date Recorded Sex Assigned at Female 08/17/2024 8:56 AM 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
--- OUTSIDE RECORDS SUMMARY | 2024-09-18 10:49 | XMS_ITS | Clinical Summary ---
Author Organization [facility] Address [address] [place] [address] Care Team Providers Care Core Java Engineer Name Role Phone Provider, No Pcp Primary Care Provider Unavailab le Source Comments [facility],non-owned Affiliates and Associated Physician Practices is amultiple site organization consisting of ambulatory clinics and hospital sitesin [place], [place], [place] and [place]. This disclosure is being madepursuant to the Care Everywhere program and may not contain all information available regarding this patient. Last updated 18.[facility] Allergies Active Allergy Reactions Criticality Noted Date [...] Recorded PHQ2 TOTAL SCORE 2 08/16/2021 [facility] - Occupational Stress [...] place to sleep or slept in a retirement (including now)? 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 Gender Identity Female 08/16/2021 9:43 AM ELECTRICAL SOFTWARE ENGINEER Sexual Orientation Bisexual 08/16/2021 9: 43 AM ELECTRICAL SOFTWARE ENGINEER Last Filed Vital Signs Vital Sign Reading [...] Resulting Agency Comment Lab Testing performed at: [address] [id number] Tonie Garcia MD LAB - MICROBIOLOGY O RDERABLES [facility] INSURANCE BILL [address] [place] [address] from Last 3 Months or Most Recently Relevant to Health Maintenance Advance Directives * Full Code (Latest Code Status on File) Date Activated Date Inactivated Comments 09/17/2023 7:49 AM 09/25/2023 11:43 AM * Full Code Date Activated Date Inactivated Comments 09/17/2023 3:28 AM 09/17/2023 3:29 AM * Full Code Date Activated Date Inactivated Comments 09/08/2023 5:46 PM 09/11/2023 10:57 AM Care Teams Core Java Engineer Relationship Specialty Start Date End Date Provider, No Pcp PCP - General 09/08/23
--- OUTSIDE RECORDS SUMMARY | 2024-09-18 10:49 | XMS_ITS | Clinical Summary ---
Author Organization [facility] Address [address] [place] [address] Care Team Providers Care Estate Attorney Name Role Phone Josefina Hess MD Primary Care Provider [phone] Allergies Active Allergy Reactions Criticality Noted Date Comments Amoxicillin Rash Low 09/04/2022 Amoxicillin-Pot Clavulanate Rash Low 09/05/19 23 Bee Venom Anaphylaxis High 09/04/2022 Doxycycline Photosensitivity 09/04/2022 Ziprasidone Nausea Only 09/04/2022 Medications hydrOXYzine (ATARAX) 25 MG tablet Take 1 tablet (25 mg total) by mouth every 4 (four) hours as needed. Active Encounters Date Type Department Care Team Description 08/17/2024 8:44 AM [facility] - 08/17/2024 12:08 PM [facility] Emergency [facility] Critical access hospital[facility] [place] [place] [address] Deshaun Kong DO Back Pain Discharge Disposition: Home or Self Care (Routine Discharge) 08/17/2024 Travel 06/29/2024 4:28 PM ETYMOLOGY TEACHER - 06/29/2024 7:04 PM [facility] Emergency [facility] [place] [address] [place] Major PA Body Aches (Body aches) [...] Sex Assigned at Female 08/17/2024 8:56 AM ETYMOLOGY TEACHER Legal Sex Female 7:06 AM CDT Gender Identity Not on file Sexual Orientation Not on file Last Filed Vital Signs Vital Sign Reading Time Taken Comments Blood Pressure 108/51 08/17/2024 10:08 AM ETYMOLOGY TEACHER Pulse 66 08/17/2024 10:08 AM ETYMOLOGY TEACHER Temperature 36.1 C (96.9 F) 08/17/2024 8:48 AM ETYMOLOGY TEACHER Respiratory Rate 18 08/17/2024 10:08 AM ETYMOLOGY TEACHER Oxygen Saturation 97% 08/17/2024 10:08 AM ETYMOLOGY TEACHER Inhaled Oxygen Concentration - - Weight 98.9 kg (218 lb) 08/17/2024 8:48 AM ETYMOLOGY TEACHER Height 165.1 cm (5' 5 ) 08/17/2024 8:48 AM ETYMOLOGY TEACHER Body Mass Index 36.28 08/17/2024 8:48 AM ETYMOLOGY TEACHER Plan of Treatment Health Maintenance Due Date [...] Comments TEST URINE STAT 08/17/2024 10:10 AM ETYMOLOGY TEACHER HC URINALYSIS AUTO W/MICRO STAT 08/17/2024 10:10 AM ETYMOLOGY TEACHER LIPASE STAT 08/17/2024 9:15 AM ETYMOLOGY TEACHER COMPREHENSIVE METABOLIC PANEL STAT 08/17/2024 9:15 AM ETYMOLOGY TEACHER CBC W/DIFF AUTOMATED STAT 08/17/2024 9:15 AM ETYMOLOGY TEACHER XR CHEST PA+LAT STAT 06/29/2024 5:50 PM ETYMOLOGY TEACHER POCT URINE (BACK OFFICE) STAT 06/29/2024 5:09 PM ETYMOLOGY TEACHER CORONAVIRUS (COVID 19) STAT 5:02 PM ETYMOLOGY TEACHER INFLUENZA A & B STAT 06/29/2024 5:02 PM ETYMOLOGY TEACHER from Last 3 Months Results * (ABNORMAL) URINALYSIS (08/17/2024 10:10 AM ETYMOLOGY TEACHER) COLOR (U) YELLOW 08/17/2024 10:32 AM ETYMOLOGY TEACHER [facility] TRANSPARENCY CLEAR 08/17/2024 10:32 AM ETYMOLOGY TEACHER [facility] SPECIFIC GRAVITY (U) 1.020 1.000 - 1.025 08/17/2024 10:32 AM ETYMOLOGY TEACHER [facility] U PH 6.0 5.0 - 8.0 08/17/2024 10:32 AM ETYMOLOGY TEACHER [facility] LEUKOCYTES (U) NEGATIVE NEGATIVE 08/17/2024 10:32 AM ETYMOLOGY TEACHER [facility] NITRITES NEGATIVE NEGATIVE 08/17/2024 10:32 AM ETYMOLOGY TEACHER [facility] PROTEIN RANDOM (U) NEGATIVE NEGATIVE 08/17/2024 10:32 AM [facility] GLUCOSE (U) NEGATIVE NEGATIVE 08/17/2024 10:32 AM [facility] KETONES MG/DL (U) NEGATIVE NEGATIVE 08/17/2024 10:32 AM [facility] UROBILINOGEN 0.2 <1.0 EU/DL 08/17/2024 10:32 AM [facility] BILIRUBIN (U) NEGATIVE NEGATIVE 08/17/2024 10:32 AM [facility] BLOOD (U) NEGATIVE NEGATIVE 08/17/2024 10:32 AM [facility] WBC/HPF NONE SEEN(A) 0 - 5 /HPF 08/17/2024 10:32 AM [facility] EPI/LPF 20-50 /LPF 08/17/2024 10:32 AM [facility] BACTERIA (U) 2+ /HPF 08/17/2024 10:32 AM ETYMOLOGY TEACHER [facility] URINE SPECIMEN OBTAINED BY CLEAN CATCH PROCEDURE / Unknown 08/17/2024 10:10 AM ETYMOLOGY TEACHER us Deshaun Kong DO URINE ORDERABLES Final Result Performing Organization Address City/[facility]/ZIP Co de Phone Number [facility] [address] [place] [address], * TEST URINE (08/17/2024 10:10 AM ETYMOLOGY TEACHER) URINE HCG TEST NEGATIVE 08/17/2024 10:33 AM ETYMOLOGY TEACHER [facility] SPECIFIC GRAVITY 1.020 08/17/2024 10:33 AM ETYMOLOGY TEACHER [facility] URINE SPECIMEN FROM URETHRA / Unknown 08/17/2024 10:10 AM ETYMOLOGY TEACHER us Deshaun Kong DO URINE ORDERABLES Final Result Performing Organization Address [facility]/ZIP Co de Phone Number [facility] Critical access hospital[address] [place] [address], [place] [phone] * (ABNORMAL) COMPREHENSIVE METABOLIC PANEL (08/17/2024 9:15 AM [facility]) SODIUM S/P/B 141 136 - 145 MMOL/L 08/17/2024 9:35 AM [facility] POTASSIUM S/P/B 4.5 3.5 - 5.1 MMOL/L 08/17/2024 9:35 AM [facility] CHLORIDE S/P/B 103 98 - 107 MMOL/L 08/17/2024 9:35 AM [facility] CO2 24.9 21.0 - 32.0 MMOL/L 08/17/2024 9:35 AM [facility] GLUCOSE 86 70 - 99 MG/DL 08/17/2024 9:35 AM [facility] Comment: FASTING GLUCOSE 100 TO 125 MG/DL IS CONSISTENT WITH IMPAIRED FASTING GLUCOSE. FASTING GLUCOSE >125 MG/DL IS CONSISTENT WITH DIABETES. RANDOM GLUCOSE >200 MG/DL WITH HYPERGLYCEMIC SYMPTOMS IS CONSISTENT WITH DIABETES. PER ADA GUIDELINES BUN 22 6 - 24 MG/DL 08/17/2024 9:35 AM [facility] CREATININE S/P/B 0.99 0.55 - 1.02 MG/DL 08/17/2024 9:35 AM [facility] CALCIUM S/P/B 9.1 8.4 - 10.5 MG/DL 08/17/2024 9:35 AM [facility] BILIRUBIN TOTAL S/P/B 0.4 0.2 - 1.0 MG/DL 08/17/2024 9:35 AM [facility] Comment: THIS ASSAY IS NOT RECOMMENDED FOR PATIENTS UNDERGOING TREATMENT WITH ELTROMBOPAG DUE TO THE POTENTIAL FOR FALSELY ELEVATED RESULTS. ALKALINE PHOSPHATASE S/P/B 23(L) 52 - 144 U/L 08/17/2024 9:35 AM [facility] AST 36 15 - 37 U/L 08/17/2024 9:35 AM [facility] ALT 38 14 - 59 U/L 08/17/2024 9:35 AM [facility] TOTAL PROTEIN S/P/B 7.7 6.4 - 8.2 G/DL 08/17/2024 9:35 AM [facility] ALBUMIN S/P/B 3.4 3.4 - 5.0 G/DL 08/17/2024 9:35 AM [facility] ANION GAP 13.1 5.0 - 15.0 MMOL/L 08/17/2024 9:35 AM [facility] OSMOLALITY (CALC) 295 MOSM/KG 025 9:35 AM [facility] Comment:REFERENCE RANGE NOT ESTABLISHED GFR ESTIMATE 83(L) >89 ML/MIN/1. 73 M2 08/17/2024 9:35 AM [facility] GFR NOTES GFR REFERENCE S: 08/17/2024 9:35 AM [facility] Comment: THE ESTIMATED GFR IS CALCULATED [...] FAILURE: <15 ml/min/1.73 m2 08/17/2024 9:15 AM ETYMOLOGY TEACHER Deshaun Kong DO LABORATORY Final Result [facility] [address] [place] [address], * (ABNORMAL) CBC W/DIFF AUTOMATED (08/17/2024 9:15 AM ETYMOLOGY TEACHER) WBC 10.77 4.00 - 10.80 x10'3/uL 08/17/2024 9:20 AM ETYMOLOGY TEACHER [facility] RBC 4.91 4.10 - 5.40 x10'6/uL 08/17/2024 9:20 AM [facility] HGB 13.0 12.0 - 16.0 G/DL 08/17/2024 9:20 AM [facility] HCT 39.7 36.0 - 47.0 % 08/17/2024 9:20 AM [facility] MCV 80.9 78.0 - 100.0 FL 08/17/2024 9:20 AM [facility] MCH 26.5(L) 27.0 - 31.0 PG 08/17/2024 9:20 AM [facility] MCHC 32.7(L) 33.0 - 36.0 G/DL 08/17/2024 9:20 AM [facility] RDW 14.6(H) 11.5 - 14.5 % 08/17/2024 9:20 AM [facility] PLT 303 150 - 350 x10'3/uL 08/17/2024 9:20 AM [facility] MPV 9.5 7.4 - 10.4 FL 08/17/2024 9:20 AM [facility] CBC COMMENT NORMAL REFERENCE RANGE NOT ESTABLISHED FOR THE PROPORTIONAL LEUKOCYTE DIFFERENTIAL. 08/17/2024 9:20 AM [facility] NEUTROPHILS % 72.4 % 08/17/2024 9:20 AM [facility] LYMPHOCYTES % 18.8 % 08/17/2024 9:20 AM [facility] MONOCYTES % 5.5 % 08/17/2024 9:20 AM [facility] EOSINOPHILS % 2.7 % 08/17/2024 9:20 AM [facility] BASOPHILS % 0.3 % 08/17/2024 9:20 AM [facility] IMMATURE GRANS % 0.3 % 08/17/19 9:20 AM [facility] NRBC % 0.0 % 08/17/2024 9:20 AM [facility] ABS. NEUTROPHILS 7.81 1.60 - 8.30 x10'3/uL 08/17/2024 9:20 AM [facility] ABS. LYMPHOCYTES 2.02 0.80 - 4.70 x10'3/uL 08/17/2024 9:20 AM ETYMOLOGY TEACHER [facility] ABS. MONOCYTES 0.59 0.00 - 1.50 x10'3/uL 08/17/2024 9:20 AM ETYMOLOGY TEACHER [facility] ABS. EOSINOPHILS 0.29 0.00 - 0.40 x10'3/uL 08/17/2024 9:20 AM ETYMOLOGY TEACHER [facility] ABS. BASOPHILS 0.03 0.00 - 0.20 x10'3/uL 08/17/2024 9:20 AM ETYMOLOGY TEACHER [facility] ABS. IMMATURE GRANULOCYTES 0.03 0.00 - 0.03 x10'3/uL 08/17/2024 9:20 AM ETYMOLOGY TEACHER [facility] ABS. NUCLEATED RBC'S 0.00 0.00 - 0.01 x10'3/uL 08/17/2024 9:20 AM ETYMOLOGY TEACHER [facility] 08/17/2024 9:15 AM ETYMOLOGY TEACHER Deshaun Kong DO LABORATORY Final Result [id number] [place] [address], * LIPASE (08/17/2024 9:15 AM ETYMOLOGY TEACHER) LIPASE 21 16 - 77 UNITS/L 08/17/2024 9:35 AM ETYMOLOGY TEACHER [facility] 08/17/2024 9:15 AM ETYMOLOGY TEACHER [facility] Luann GOETZ LABORATORY Final Result [address] [address] [id number] [place] [address], * XR CHEST PA+LAT (06/29/2024 5:50 PM ETYMOLOGY TEACHER) Anatomical Region Laterality Modality Chest Radiographic Caroline ging 06/29/2024 5:50 PM ETYMOLOGY TEACHER Impressions 06/29/2024 5:55 PM ETYMOLOGY TEACHER Impression: No acute findings. Referred By: Interpreted By: Jose May MD, 06/29/2024 5:50 PM Narrative 06/29/2024 5:55 PM ETYMOLOGY TEACHER [place] [id number] Examination: Chest 2 View History: Cough DATE/TIME: 06/29/2024 5:50 PM Comparison: 02/02/2023 Technique: PA and lateral views were obtained. Findings: Heart size, mediastinal contours and pulmonary vasculature are within normal limits. No pulmonary consolidation, pleural effusion or pneumothorax. No acute osseous abnormality. Procedure Note Jose May MD - 06/29/2024 [place] [id number] Examination: Chest 2 View History: Cough DATE/TIME: [...] lt * POCT urine (06/29/2024 5:09 PM ETYMOLOGY TEACHER) Pathologist [facility] URINE HCG TEST NEGATIVE Internal Control: VALID [place] HATFIELD POINT OF CARE TEST ORDERAB LES Final Result * CORONAVIRUS (COVID 19) (06/29/2024 5:02 PM ETYMOLOGY TEACHER) Pathologist [facility] CORONAVIRUS SARS COV 2 RNA NEGATIVE NEGATIVE 06/29/2024 6:09 PM ETYMOLOGY TEACHER [facility] Comment: NEGATIVE RESULTS DO NOT [...] SARS-COV-2. SPECIMEN TYPE NASAL 06/29/2024 5:02 PM ETYMOLOGY TEACHER [facility] NASAL STRUCTURE / Unknown 06/29/2024 5:02 PM ETYMOLOGY TEACHER [place] HATFIELD MICROBIOLOGY - GENERAL ORD ERABLES Final Result Performing Organization Address City/[facility] Co de Phone Number [facility] [address] [place] [id number], [place] [phone] * (ABNORMAL) INFLUENZA A & B, RAPID (06/29/2024 5:02 PM ETYMOLOGY TEACHER) [facility] SPECIMEN TYPE NASAL 06/29/2024 5:14 PM ETYMOLOGY TEACHER [facility] INFLUENZA A POSITIVE(A) NEGATIVE 06/29/2024 6:15 PM ETYMOLOGY TEACHER [facility] INFLUENZA B NEGATIVE NEGATIVE 06/29/2024 6:15 PM ETYMOLOGY TEACHER [facility] Comment: Interpretation: Positive for Influenza Type A. This test can not distinguish influenza A virus subtypes. For example, this test cannot distinguish influenza infections caused by novel influenza A viruses versus seasonal influenza A viruses. NASAL STRUCTURE / Unknown 06/29/2024 5:02 PM ETYMOLOGY TEACHER [place] [facility] MICROBIOLOGY - GENERAL ORD ERABLES Final Result [id number] [address] [place] [address], [place] [phone] from Last 3 Months Insurance [employer] Care Teams Estate Attorney Relationship Specialty [place] [address] [place] [address] [place] [address] PCP - General FAMILY PRACTICE 12/31/22
--- OUTSIDE RECORDS SUMMARY | 2024-09-18 10:49 | XMS_ITS | Patient Health Summary ---
Author Organization [facility] Address [address] [place] [address] Care Team Providers Care Data Power Consultant Name Role Phone Provider, No Pcp Primary Care Provider Unavailab le Note from [facility],non-owned Affiliates and Associated Physician Practices is amultiple site organization consisting of ambulatory clinics and hospital sitesin [place], [place], [place] and [place]. This disclosure is being madepursuant to the Care Everywhere program and may not contain all information available regarding this patient. Last updated 18.[facility] Allergies * Amoxicillin(Urticaria,Nausea and/or Vomiting) -High Criticality [...] Date Recorded PHQ2 TOTAL SCORE 2 08/16/2021 [facility] - Occupational [...] place to sleep or slept in a jail (including now)? Yes 09/17/2023 Sex and Gender Information Value Date Recorded Sex Assigned at Female 08/16/2021 9:43 AM LICENSED INSURANCE AGENT Gender Identity Female 08/16/2021 9:43 AM LICENSED INSURANCE AGENT Sexual Orientation Bisexual 08/16/2021 9: 43 AM LICENSED INSURANCE AGENT Last Filed Vital Signs Vital Sign [...] 7 - 26 mg/dL 09/25/2023 5:56 AM [facility] Creatinine 0.64 0.56 - 0.96 mg/dL 09/25/2023 5:56 AM [facility] Sodium 138 136 - 145 mmol/L 09/25/2023 5:56 AM [facility] Potassium 4.2 3.5 - 4.5 mmol/L 09/25/2023 5:56 AM [facility] Chloride 101 98 - 107 mmol/L 09/25/2023 5:56 AM [facility] CO2 27 22 - 29 mmol/L 09/25/2023 5:56 AM [facility] Glucose 93 70 - 115 mg/dL 09/25/2023 5:56 AM [facility] Calcium 8.9 8.4 - 10.2 mg/dL 09/25/2023 5:56 AM [facility] Anion Gap 10 6 - 16 09/25/2023 5:56 AM [facility] BUN/Creatinine Ratio 20 7 - 23 09/25/2023 5:56 AM [facility] Osmolality Calculated 286 275 - 295 mOsm/kg 09/25/2023 5:56 AM [facility] eGFR by CKD-EPI >90 >=90 mL/min/1.7 3 m2 09/25/2023 5:56 AM [facility] Blood BLOOD SPECIMEN / Unknown Lab Venipuncture / Unknown 09/25/2023 4:57 AM CDT 09/25/2023 5:25 AM T Victor Manuel Zimmerman MD LAB - CHEMISTRY SUSANA MEDEIROS [address] [address], [facility] [phone] * PHOSPHORUS BLOOD (09/25/2023 4:57 AM CDT) Only the most recent of13 resultswithin the time period is included. Phosphorus 4.6 2.9 - 5.1 mg/dL 09/25/2023 5:56 AM CDT [facility] Blood BLOOD SPECIMEN / Unknown Lab Venipuncture / Unknown 09/25/2023 4:57 AM CDT 09/25/2023 5:25 AM CDT Victor Manuel Zimmerman MD LAB - CHEMISTRY SUSANA MEDEIROS Performing Organization Address [facility]/ZIP Co de Phone Number [address] [address], [facility] [phone] * CT DRAIN W CATH PLACEMENT (09/23/2023 4:02 PM CDT) Anatomical Region Laterality Modality Abdomen Computed Tomogra phy 09/23/2023 5:00 PM CDT Impressions 09/23/2023 5:13 PM CDT Impression: CT-guided placement of 10 Micronesian pigtail drainage catheter in right lower quadrant, [...] please review the procedure nurse documentation in [facility]. > Dictated by Antelmo Thomas MD (Transition Social Worker) 09/23/2023 5:00 PM I, Eleazar Moran MD [...] quadrant. Operators: 1.Dr. Moran, Attending Physician 2.Dr. Tohmas, Resident Physician Anesthesia: 1.Local anesthesia - 10 mL of 1% lidocaine 2.Intravenous conscious sedation - Versed:2mg, Fentanyl: 150mcg Procedure: 1.Limited noncontrast CT of the abdomen. 2.CT-guided placement of a 10 Micronesian pigtail drainage catheter in right lower quadrant. [...] was provided with 1% Lidocaine. A 5 Micronesian co-axial needle system was advanced in stages under CT guidance. Upon aspiration of fluid, the outer-sheath was advanced within the collection. A 0.035 inch guidewire was looped within the collection, and following series of dilatation/exchanges, a 10 Micronesian pigtail drainage catheter was advanced into the [...] the abdomen. 2.CT-guided placement of a 10 Micronesian pigtail drainage catheter in right lower quadrant. [...] was provided with 1% Lidocaine. A 5 Micronesian co-axialneedle system was advanced in stages under CT guidance. Upon aspiration offluid, the outer-sheath was advanced within the collection. A 0.035 inchguidewire was looped within the collection, and following series of dilatation/exchanges, a 10 Micronesian pigtail drainage catheter was advanced into the collection. The initial aspirate was a mixture of purulentdebris and blood, and approximately 10 mL of fluid were drained. An appropriate amount of aspirate was sent for ordered studies. Post-procedure limited noncontrast CT showed the catheter in satisfactory position. The patient tolerated the procedure well and [facility]. There were no immediate complicationsassociated with the procedure. Impression: CT-guided placement of 10 Micronesian pigtail drainage catheterin right lower quadrant, as [...] response to care. Intra-service sedation start time [id number] and end time was [id number] during which I was present. Total physician intra-service sedation time was 29 minutes. For details on pre moderate sedation and post moderate sedation patient evaluation, please reviewthe evaluation forms in [facility]. For details on monitored clinical parameters during the intra-service sedation time, please review the procedurenurse documentation in [facility]. > Dictated by Antelmo Thomas MD (Transition Social Worker) 09/23/2023 5:00 PM IEleazar MD have personally reviewed and interpreted this examination/study. > Interpreting Provider: Eleazar Moran MD on 09/23/2023 5:[address] ORDERABLES * CULTURE FUNGUS OTHER+FUNGUS SMEAR (09/23/2023 3:51 PM CDT) Culture No fungus isolated OMKAR 10/18/2023 10:04 AM CDT [facility] Fungus Stain No yeast or hyphae seen 10/18/2023 10:04 AM CDT [facility] Microbiology PERITONEAL FLUID / Unknown Collection / Unknown 09/23/2023 3:51 PM CDT 09/23/2023 4:21 PM CDT Shelley Pérez LIBRARY SALES CONSULTANT-SEED YEAST OPERATOR LAB - MICROBIOLO GY ORDERABLES [facility] [address] [place] [address], [facility] [phone] * CULTURE FLUID+GRAM STAIN (09/23/2023 3:51 PM CDT) Culture No growth OMKAR 09/27/2023 1:51 AM CDT [facility] Gram Stain Heavy Polymorphonuclear cells 09/27/2023 1:51 AM CDT [facility] Gram Stain No organisms seen 024 1:51 AM CDT [facility] Fluid PERITONEAL FLUID / Unknown Collection / Unknown 09/23/2023 3:51 PM CDT 09/23/2023 6:06 PM CDT Shelley Milind Beto [facility]-SEED YEAST OPERATOR LAB - MICROBIOLO GY ORDERABLES Performing Organization Address City/[facility]/ZIP Co de Phone Number [facility] [address] [place] [address], [facility] [phone] * CULTURE ANAEROBE (09/23/2023 3:51 PM CDT) Only the most recent of2 resultswithin the time period is included. Culture No anaerobic organisms isolated OMKAR 09/29/2023 10:28 AM CDT [facility] Microbiology PERITONEAL FLUID / Unknown Collection / Unknown 09/23/2023 3:51 PM CDT 09/23/2023 4:18 PM CDT Shelley P[facility]rez [facility]PER[facility] - MICROBIOLO GY ORDERABLES Performing Organization Address City/[facility]/ZIP Co de Phone Number [facility] [address] [place] [address], [facility] [phone] * XR CHEST 1VW PORTABLE (09/23/2023 9:08 AM CDT) Only the most recent of2 resultswithin the time period is included. Anatomical Region Laterality Modality Chest Radiographic Caroline ging 09/23/2023 9:12 AM CDT Narrative 09/23/2023 3:51 PM CDT PROCEDURE: XR CHEST 1VW PORTABLE, DATE/TIME OF EXAM: 09/23/2023 8:37 AM, LOCATION [facility] INDICATION: S27.322A: Contusion of both lungs, initial [...] Report dictated by Jg Peoples MD, MD (radiology technologist). Davie Fatima MD have personally reviewed and interpreted this examination/study. > Interpreting Provider: Davie Luna MD on 09/23/2023 3:51 PM Procedure Note Davie Luna MD - 09/23/2023 PROCEDURE: XR CHEST 1VW PORTABLE, DATE/TIME OF EXAM: 09/23/2023 8:37AM, LOCATION [facility] INDICATION: S27.322A: Contusion of both lungs, initial [...] Report dictated by Jg Peoples MD, MD (radiology technologist). Davie Fatima MD have personally reviewed and interpreted this examination/study. > Interpreting Provider: Davie Luna MD on 09/23/2023 3:51 PM Shelley Pérez LIBRARY SALES CONSULTANT-SEED YEAST OPERATOR DIAGNOSTIC IMAGI NG ORDERABLES * (ABNORMAL) CBC W/O DIFFERENTIAL (09/23/2023 2:38 AM CDT) Only the most recent of2 resultswithin the time period is included. WBC 12.9(H) 4.0 - 10.7 x10E9/L 09/23/2023 2:56 AM [facility] RBC Count 3.94 3.90 - 5.20 x10E12/L 09/23/2023 2:56 AM [facility] Hemoglobin 10.4(L) 11.9 - 15.8 g/dL 09/23/2023 2:56 AM [facility] Hematocrit 32.1(L) 34.8 - 46.1 % 09/23/2023 2:56 AM [facility] MCV 81.5 80.0 - 98.0 fL 09/23/2023 2:56 AM [facility] MCH 26.4(L) 26.7 - 33.6 pg 09/23/2023 2:56 AM [facility] MCHC 32.4 31.7 - 36.3 g/dL 09/23/2023 2:56 AM [facility] RDW-CV 13.9 11.3 - 14.8 % 09/23/2023 2:56 AM [facility] Platelet Count 356 150 - 420 x10E9/L 09/23/2023 2:56 AM [facility] MPV 10.5 7.8 - 11.4 fL 09/23/2023 2:56 AM [facility] Blood BLOOD SPECIMEN / Unknown Lab Venipuncture / Unknown 09/23/2023 2:38 AM CDT 09/23/2023 2:49 AM CDT Jesika Lutz LIBRARY SALES CONSULTANT-INSTRUMENT ASSEMBLER LAB - HEMATOLOGY ORDERABLES [facility] [address] [place] [address], [facility] [phone] * CT ABDOMEN PELVIS W CONTRAST (09/22/2023 [...] MD on 09/22/2023 1:34 PM Jesika Lutz LIBRARY SALES CONSULTANT-INSTRUMENT ASSEMBLER CT ORDERABLES * (ABNORMAL) CBC W AUTO DIFFERENTIAL (09/21/2023 3:59 AM CDT) Only the most recent of12 resultswithin the time period is included. WBC 11.9(H) 4.0 - 10.7 x10E9/L 09/21/2023 4:34 AM [facility] RBC Count 3.68(L) 3.90 - 5.20 x10E12/L 09/21/2023 4:34 AM [facility] Hemoglobin 9.9(L) 11.9 - 15.8 g/dL 09/21/2023 4:34 AM [facility] Hematocrit 30.4(L) 34.8 - 46.1 % 09/21/2023 4:34 AM [facility] MCV 82.6 80.0 - 98.0 fL 09/21/2023 4:34 AM [facility] MCH 26.9 26.7 - 33.6 pg 09/21/2023 4:34 AM [facility] MCHC 32.6 31.7 - 36.3 g/dL 09/21/2023 4:34 AM [facility] RDW-CV 13.9 11.3 - 14.8 % 09/21/2023 4:34 AM [facility] Platelet Count 287 150 - 420 x10E9/L 09/21/2023 4:34 AM [facility] MPV 9.9 7.8 - 11.4 fL 09/21/2023 4:34 AM [facility] Neutrophil % 71.7 41.0 - 74.0 % 09/21/2023 4:34 AM [facility] Lymphocyte % 15.0(L) 17.0 - 47.0 % 09/21/2023 4:34 AM [facility] Monocyte % 9.3 3.0 - 11.0 % 09/21/2023 4:34 AM [facility] Eosinophil % 0.8 0.0 - 7.0 % 09/21/2023 4:34 AM [facility] Basophil % 0.4 0.0 - 1.6 % 09/21/2023 4:34 AM [facility] Immature Granulocytes % 2.8(H) 0.0 - 1.0 % 09/21/2023 4:34 AM [facility] Neutrophil Absolute 8.55(H) 1.60 - 7.50 x10E9/L 09/21/2023 4:34 AM CDT [facility] Lymphocyte Absolute 1.79 1.00 - 4.40 x10E9/L 09/21/2023 4:34 AM CDT [facility] Monocyte Absolute 1.11(H) 0.15 - 1.00 x10E9/L 09/21/2023 4:34 AM CDT [facility] Eosinophil Absolute 0.09 0.00 - 0.60 x10E9/L 09/21/2023 4:34 AM CDT [facility] Basophil Absolute 0.05 0.00 - 0.13 x10E9/L 09/21/2023 4:34 AM CDT [facility] Blood BLOOD SPECIMEN / Unknown Lab Venipuncture / Unknown 09/21/2023 3:59 AM CDT 09/21/2023 4:29 AM CDT Victor Manuel Zimmerman MD LAB - HEMATOLOGY ORD ERABLES Performing Organization Address City/[facility]/ZIP Co de Phone Number [address] [address], [facility] [phone] * MAGNESIUM BLOOD (09/21/2023 3:59 AM CDT) Only the most recent of9 resultswithin the time period is included. Magnesium 1.8 1.6 - 2.6 mg/dL 09/21/2023 5:00 AM CDT [facility] Blood BLOOD SPECIMEN / Unknown Lab Venipuncture / Unknown 09/21/2023 3:59 AM CDT 09/21/2023 4:29 AM CDT Victor Manuel Zimmerman MD LAB - CHEMISTRY ORDE WALDEMAR [address] [address], [facility] [phone] * XR ABDOMEN KUB PORTABLE (09/20/2023 3:01 PM CDT) Only the most recent of2 resultswithin the time period is included. Anatomical Region Laterality Modality Abdomen Radiographic Caroline ging 09/20/2023 2:54 PM CDT Narrative 09/20/2023 4:50 PM CDT PROCEDURE: XR ABDOMEN KUB PORTABLE, DATE/TIME OF EXAM: 09/20/2023 2:03 PM, LOCATION [facility] INDICATION: R10.84: Generalized abdominal pain ADDITIONAL CLINICAL INFORMATION: Ordering Provider Reason For Exam: ng placement Technologist Note: Additional: COMPARISON: KUB dated 09/20/2023. FINDINGS/IMPRESSION: An enteral tube is present with tip overlying the left upper quadrant,likely within the gastric lumen. Report dictated by Yudelka Gamez Dr, MD (radiology technologist). Davie Fatima MD have personally reviewed and interpreted this examination/study. > Interpreting Provider: Davie Luna MD on 09/20/2023 4:50 PM Procedure Note Davie Luna MD - 09/20/2023 PROCEDURE: XR ABDOMEN KUB PORTABLE, DATE/TIME OF EXAM: 09/20/2023 2:03PM, LOCATION [facility] INDICATION: R10.84: Generalized abdominal pain ADDITIONAL CLINICAL INFORMATION: Ordering Provider Reason For Exam: ng placement Technologist Note: Additional: COMPARISON: KUB dated 09/20/2023. FINDINGS/IMPRESSION: An enteral tube is present with tip overlying the left upper quadrant,likely within the gastric lumen. Report dictated by Yudelka Gamez Dr, MD (radiology technologist). Davie Fatima MD have personally reviewed and interpreted this examination/study. > Interpreting Provider: Davie Luna MD on 09/20/2023 4:50 PM Victor Manuel Zimmerman MD DIAGNOSTIC IMAGING O RDERABLES * (ABNORMAL) DIFFERENTIAL MANUAL (09/17/2023 3:55 AM CDT) Only the most recent of2 resultswithin the time period is included. Neutrophil % 91(H) 41 - 74 % 09/17/2023 6:19 AM CDT [facility] Lymphocyte % 4(L) 17 - 47 % 09/17/2023 6:19 AM CDT [facility] Monocyte % 5 3 - 11 % 09/17/2023 6:19 AM CDT [facility] Neutrophil Absolute 10.10(H) 1.60 - 7.50 x10E9/L 09/17/2023 6:19 AM T [facility] Lymphocyte Absolute 0.44(L) 1.00 - 4.40 x10E9/L 09/17/2023 6:19 AM T [facility] Monocyte Absolute 0.56 0.15 - 1.00 x10E9/L 09/17/2023 6:19 AM T [facility] RBC Morphology REVIEWED 09/17/2023 6:19 AM T [facility] Microcytosis MODERATE(A) (none) 09/17/2023 6:19 AM [facility] Blood BLOOD SPECIMEN / Unknown Lab Venipuncture / Unknown 09/17/2023 3:55 AM CDT 09/17/2023 4:41 AM CDT Victor Manuel Zimmerman MD LAB - HEMATOLOGY ORD ERABLES [facility] [address] [place] [address], [facility] [phone] * (ABNORMAL) CULTURE WOUND+GRAM STAIN (09/16/2023 10:00 [...] Light Gram-positive cocci 09/20/2023 11:33 AM CDT [facility] Microbiology ABDOMEN AND PELVIS / Unknown [...] Zimmerman MD LAB - MICROBIOLOGY O RDERABLES [facility] [address] [place] [address], [facility] [phone] * PATHOLOGY TISSUE (09/16/2023 8:50 PM CDT) Only the most recent of2 resultswithin the time period is included. Case Report Surgical Pathology Report Case: [id number] Authorizing Provider: Victor Manuel Zimmerman MD Collected: 09/16/2023 08:50 PM Ordering Location: [facility] Received: 09/17/2023 05:01 AM Pathologist: [...] sigmoidoscopy and leak test. 09/21/2023 4:47 PM [facility] Gross Description The requisition [...] cm. The mucosa is pink-greer and flattened. Behavioral Health Professional sections are submitted as follows: A1-resection margin, en face, A2-opposing resection margin, en face, A3-transmural defect, A4-prior anastomosis site, A5-flattened bowel mucosa, A6-bowel with adjacent purulent mesentery. Received in formalin, specimen 'B', is a 2.0 x 1.7 x 1.3 cm circular, pale brown-greer tissue with a suture present. The mucosa is soft and pale-greer. Behavioral Health Professional sections are submitted in cassette B1. Received in formalin, specimen 'C', is a 1.9 x 1.5 x 0.8 cm circular, pale brown-greer tissue with ashly present. The mucosa is soft and pale-greer. Behavioral Health Professional sections are submitted in cassette C1. [place] 09/21/2023 4:47 PM [facility] Pathologist Location at [facility] 09/21/2023 4:47 PM [facility] Disclaimer The performance characteristics of all immunohistochemical and indirect immunofluorescence stains (if any) cited in this report were determined by the Histopathology Laboratory of [facility]. Some of these tests were developed [...] attending (teaching) pathologist. 09/21/2023 4:47 PM CDT [facility] Embedded Images 09/21/2023 4:47 PM CDT [facility] Resection without Tumor PARTIAL RESECTION [...] - PATHOLOGY/CYTO LOGY ORDERABLES Performing Organization Address City/[facility]/ZIP Co de Phone Number [facility] [address] [place] [address], [facility] [phone] * TYPE + SCREEN PANEL (09/16/2023 8:15 PM CDT) Only the most recent of2 resultswithin the time period is included. Antibody Screen NEG 9:01 PM CDT [facility] ABO Rh A POS 09/16/2023 9:01 PM CDT [facility] Blood Bank BLOOD SPECIMEN / Unknown 09/16/2023 8:15 PM CDT 09/16/2023 8:19 PM CDT Mindy Eaton MD LAB - BLOOD BANK ORD ERABLES Performing Organization Address [facility]/ZIP Co de Phone Number [facility] [address] [phone], [facility] [phone] * ETT LINE PERFORMABLE (09/16/2023 7:55 PM CDT) Narrative Ian Townsend DO - 09/16/2023 7:55 PM CDT Ian Townsend DO 09/16/2023 7:56 PM Endotracheal Tube Placement: Patient Location: OR. Intubation Event Date/Time: 09/16/2023 7:47 PM Procedure: intubation ([id number]). Procedure Section: Sedation: IV sedation. Indications for [...] PM. > Dictated by Charles Campo DO (radiology technologist). I, Darío Moore MD have personally reviewed and interpreted this examination/study. > Interpreting Provider: Darío Moore MD on 09/16/2023 9:25 PM Narrative 09/16/2023 9:25 PM CDT PROCEDURE: CT ABDOMEN PELVIS WO CONTRAST, DATE/TIME OF EXAM: 09/16/2023 6:03 PM, LOCATION [facility] INDICATION: R10.84: Abdominal pain, generalized ADDITIONAL CLINICAL [...] DATE/TIME OF EXAM: 09/16/2023 6:03 PM, LOCATION [facility] INDICATION: R10.84: Abdominal pain, generalized ADDITIONAL CLINICAL [...] PM. > Dictated by Charles Campo, DO (radiology technologist). I, Darío Moore MD have personally reviewed and interpreted this examination/study. > Interpreting Provider: Darío Moore MD on 09/16/2023 9:25 PM Sai Hernandez MD CT ORDERABLES * CULTURE BLOOD (09/16/2023 4:39 PM CDT) Only the most recent of2 resultswithin the time period is included. Culture No growth day 5 OMKAR 09/21/2023 7:31 PM CDT [facility] Blood PERIPHERAL BLOOD / Unknown Venipuncture / Unknown 09/16/2023 4:39 PM CDT 09/16/2023 4:48 PM CDT Sai Hernandez MD LAB - MICROBIOLOGY O RDERABLES [facility] [address] [place] [address], [facility] [phone] * (ABNORMAL) C-REACTIVE PROTEIN (09/16/2023 4:29 PM CDT) Only the most recent of2 resultswithin the time period is included. C-Reactive Protein 5.2(H) <=0.5 mg/dL 09/16/2023 5:15 PM CDT [facility] Blood BLOOD SPECIMEN / Unknown Venipuncture / Unknown 09/16/2023 4:29 PM CDT 09/16/2023 4:51 PM CDT Victor Manuel Zimmerman MD LAB - CHEMISTRY SUSANA MEDEIROS [facility] [address] [place] [address], [place] [phone] * (ABNORMAL) URINE MICROSCOPIC ONLY REFLEX TO CULTURE (09/16/2023 2:01 PM CDT) Reflex Status Culture not indicated 09/16/2023 2:34 PM CDT [facility] RBC UA 0-2 None Seen, 0-2, 3-5 /HPF 09/16/2023 2:34 PM CDT [facility] WBC UA 0-5 None Seen, 0-5 /HPF 09/16/2023 2:34 PM T [facility] Bacteria UA Trace(A) None /HPF 09/16/2023 2:34 PM T [facility] Squamous Epithelial Cells UA 0-2 None Seen, 0-2, 3-5 /HPF 09/16/2023 2:34 PM T [facility] Urine URINE SPECIMEN OBTAINED BY CLEAN CATCH PROCEDURE / Unknown Collection / Unknown 09/16/2023 2:01 PM CDT 09/16/2023 2:03 PM CDT [facility] - 09/16/2023 2:34 PM CDT Obinna Marte MD LAB - URINALYSIS ORD ERABLES [facility] [address] [place] [address], [facility] [phone] * (ABNORMAL) URINALYSIS REFLEX MICROSCOPIC REFLEX CULTURE (09/16/2023 2:01 PM CDT) Color UA Yellow Straw, Yellow 09/16/2023 2:28 PM [facility] Clarity UA Clear Clear 09/16/2023 2:28 PM [facility] Specific [place] UA 1.017 1.005 - 1.030 09/16/2023 2:28 PM [facility] pH UA 6.0 5.0 - 8.0 pH 09/16/2023 2:28 PM [facility] Protein UA Negative Negative 09/16/2023 2:28 PM [facility] Glucose UA Negative Negative 09/16/2023 2:28 PM [facility] Ketone UA Negative Negative 09/16/2023 2:28 PM [facility] Bilirubin UA Negative Negative 09/16/2023 2:28 PM [facility] Blood UA 1+(A) Negative 09/16/2023 2:28 PM [facility] Nitrite UA Negative Negative 09/16/2023 2:28 PM [facility] Leukocyte Esterase Negative Negative 09/16/2023 2:28 PM [facility] Urobilinogen UA Negative Negative mg/dL 09/16/2023 2:28 PM CDT [facility] Urine URINE SPECIMEN OBTAINED BY CLEAN CATCH PROCEDURE / Unknown Collection / Unknown 09/16/2023 2:01 PM CDT 09/16/2023 2:03 PM CDT Narrative [facility] - 09/16/2023 2:28 PM CDT Obinna Marte MD LAB - URINALYSIS ORD ERABLES Performing Organization Address City/[facility]/ZIP Co de Phone Number [address] [address], [facility] [phone] * LACTIC ACID BLOOD REFLEX TO REPEAT (09/16/2023 11:21 AM CDT) Pathologist [facility] Lactic Acid-Stat 1.2 <=2.0 mmol/L 09/16/2023 11:58 AM CDT [facility] Blood BLOOD SPECIMEN / Unknown Venipuncture / Unknown 09/16/2023 11:21 AM CDT 09/16/2023 11:31 AM CDT Rosmery Khan PA-C LAB - CHEMISTRY OR DERABLES Performing Organization Address [facility]/ZIP Co de Phone Number [address] [address], [place] [phone] * (ABNORMAL) COMPREHENSIVE METABOLIC PANEL (09/16/2023 11:21 AM CDT) Only the most recent of2 resultswithin the time period is included. BUN 17 7 - 26 mg/dL 09/16/2023 12:09 PM T [facility] Creatinine 0.87 0.56 - 0.96 mg/dL 09/16/2023 12:09 PM T [facility] Sodium 140 136 - 145 mmol/L 09/16/2023 12:09 PM T [facility] Potassium 3.9 3.5 - 4.5 mmol/L 09/16/2023 12:09 PM T [facility] Chloride 104 98 - 107 mmol/L 09/16/2023 12:09 PM [facility] CO2 25 22 - 29 mmol/L 09/16/2023 12:09 PM [facility] Glucose 149(H) 70 - 115 mg/dL 09/16/2023 12:09 PM [facility] Calcium 9.4 8.4 - 10.2 mg/dL 09/16/2023 12:09 PM [facility] Protein Total 7.1 6.0 - 8.3 g/dL 09/16/2023 12:09 PM [facility] Albumin 3.5 3.4 - 5.0 g/dL 09/16/2023 12:09 PM [facility] Bilirubin Total <0.5 0.2 - 1.2 mg/dL 09/16/2023 12:09 PM [facility] Alkaline Phosphatase 21(L) 40 - 150 U/L 09/16/2023 12:09 PM [facility] ALT 41 5 - 55 U/L 09/16/2023 12:09 PM [facility] AST 24 5 - 34 U/L 09/16/2023 12:09 PM [facility] Anion Gap 11 6 - 16 09/16/2023 12:09 PM [facility] BUN/Creatinine Ratio 20 7 - 23 09/16/2023 12:09 PM [facility] Osmolality Calculated 294 275 - 295 mOsm/kg 09/16/2023 12:09 PM [facility] Albumin/Globulin Ratio 1.0(L) 1.1 - 2.3 09/16/2023 12:09 PM [facility] eGFR by CKD-EPI >90 >=90 mL/min/1.7 3 m2 09/16/2023 12:09 PM [facility] Blood BLOOD SPECIMEN / Unknown Venipuncture / Unknown 09/16/2023 11:21 AM T 09/16/2023 11:31 AM [facility] oRsmery Khan PA-C LAB - CHEMISTRY OR DERABLES [facility] [address] [place] [address] [phone] * HCG BETA BLOOD QUANTITATIVE (09/16/2023 11:21 AM CDT) Only the most recent of3 resultswithin the time period is included. [facility] Beta-hCG Total Quantitative <3 mIU/mL 09/16/2023 12:16 PM CDT [facility] Comment: HCG Numeric Result Interpretation: Non- [...] - CHEMISTRY OR DERABLES Performing Organization Address [facility] Co de Phone Number [address] [address], [facility] [phone] * LIPASE BLOOD (09/16/2023 11:21 AM CDT) Only the most recent of2 resultswithin the time period is included. [facility] Lipase 14 8 - 78 U/L 09/16/2023 12:05 PM CDT [facility] Blood BLOOD SPECIMEN / Unknown Venipuncture / Unknown 09/16/2023 11:21 AM CDT 09/16/2023 11:31 AM CDT Narrative [facility] - 09/16/2023 12:05 PM CDT Lipase results from the [employer] Al[employer] analyzer may not be comparable with other methodologies. Rosmery Khan PA-C LAB - CHEMISTRY OR DERABLES Performing Organization Address City/[facility] Co de Phone Number [address] [address], [facility] [phone] * CT ANGIO ABDOMEN (09/10/2023 8:33 AM LICENSED INSURANCE AGENT) Anatomical Region Laterality Modality Abdomen Computed Tomogra phy 09/10/2023 8:38 AM LICENSED INSURANCE AGENT Impressions 09/10/2023 10:17 AM LICENSED INSURANCE AGENT Impression: 1.Discrete contour irregularity of the [...] > Dictated by Milan Li MD, MD (radiology technologist). I, Winifred Guzman MD have personally reviewed and interpreted this examination/study. > Interpreting Provider: Winifred Guzman MD on 09/10/2023 10:17 AM Narrative 09/10/2023 10:17 AM LICENSED INSURANCE AGENT PROCEDURE: CT ANGIO ABDOMEN, DATE/TIME OF EXAM: 09/10/2023 8:33 AM, LOCATION [facility] INDICATION: S36.899A: Traumatic hemoperitoneum, initial encounter ADDITIONAL [...] DATE/TIME OF EXAM: 09/10/2023 8:33 AM, LOCATION [facility] INDICATION: S36.899A: Traumatic hemoperitoneum, initial encounter ADDITIONAL [...] opacities > Dictated by Milan Li MD, (radiology technologist). I, Winifred Guzman MD have personally reviewed and interpreted this examination/study. > Interpreting Provider: Winifred Guzman MD on 3/8/266892:17 AM Sree Graham MD CT ORDERABLES * ETT LINE PERFORMABLE (09/09/2023 2:00 PM LICENSED INSURANCE AGENT) Narrative Onelia Grider Anes Asst - 09/09/2023 2:00 PM LICENSED INSURANCE AGENT Onelia Grider Anes Asst 09/09/2023 2:02 PM Endotracheal Tube Placement: Patient Location: OR. Intubation Event Date/Time: 09/09/2023 1:03 PM Procedure: intubation ([id number]). Procedure Section: Sedation: under general anesthesia. Indications [...] URINE QUAL POCT NOTIFICATION (09/09/2023 12:04 PM LICENSED INSURANCE AGENT) Comment Notification Label Only - See Separate Report 09/09/2023 1:30 PM LICENSED INSURANCE AGENT [facility] Urine URINE / Unknown 09/09/2023 1 2:04 PM LICENSED INSURANCE AGENT 09/09/2023 12:04 PM LICENSED INSURANCE AGENT Graham Mace MD LAB - URINALYSIS ORD ERABLES [facility] [address] [place] [address], [facility] [phone] * BLOOD TYPE VERIFICATION (09/09/2023 7:02 AM LICENSED INSURANCE AGENT) ABO Rh A POS 09/09/2023 8:2 9 AM [facility] BLOOD BANK LAB Blood Bank BLOOD SPECIMEN / Unknown Lab Venipuncture / Unknown 09/09/2023 7:02 AM LICENSED INSURANCE AGENT 09/09/2023 7:35 AM LICENSED INSURANCE AGENT Milan Bradford MD LAB - BLOOD BANK ORD ERABLES [facility] BLOOD BANK LAB [address] [place] [address], [facility] [phone] * (ABNORMAL) URINE DRUG SCREEN IMMUNOASSAY (09/08/2023 5:53 PM LICENSED INSURANCE AGENT) Only the most recent of2 resultswithin the time period is included. [facility] Amphetamines Screen Urine Negative Negative : < 1000 ng/mL 09/08/2023 6:23 PM [facility] Barbiturates Screen Urine Negative Negative : < 200 ng/mL 09/08/2023 6:23 PM [facility] Benzodiazepine Screen Urine Positive(A) Negative : < 200 ng/mL 09/08/2023 6:23 PM [facility] Comment: Positive urine benzodiazepine screening results should be confirmed by another generally accepted non-immunological method such as gas chromatography or mass spectrometry. Opiates Urine Negative Negative : < 300 ng/mL 09/08/2023 6:23 PM [facility] Cocaine Metabolites Urine Negative Negative : < 300 ng/mL 09/08/2023 6:23 PM [facility] Phencyclidine Screen Urine Negative Negative : < 25 ng/ml 09/08/2023 6:23 PM [facility] Cannabinoids Screen Urine Positive(A) Negative : <50 ng/mL 09/08/2023 6:23 PM [facility] Comment:Positive urine canna binoids (THC) screening results should be confirmed by another generally accepted non-immunological method such as gas chromatography or mass spectrometry. Methadone Screen Urine Negative Negative : < 300 ng/mL 09/08/2023 6:23 PM [facility] Fentanyl Screen Urine Negative Negative : <1.5 ng/mL 09/08/2023 6:23 PM LICENSED INSURANCE AGENT [facility] Urine URINE / Unknown Collection / Unknown 09/08/2023 5:53 PM LICENSED INSURANCE AGENT 09/08/2023 5:57 PM LICENSED INSURANCE AGENT Narrative [facility] - 09/08/2023 6:23 PM LICENSED INSURANCE AGENT The Urine Toxicology Screening Panel does not screen for Propoxyphene, Meprobamate, Carisoprodol, Trazodone, muta-gxe-wdfaqry medications and/or volatiles (Acetone, Isopropanol, Methanol or Ethylene Glycol). Ethanol, Salicylate, Acetaminophen, Tricyclic Antidepressants and several therapeutic drugs may be individually assayed in serum or plasma specimen. Toxicology testing by the [facility] is an aid to medical diagnosis and treatment of patients. No documented chain of custody was maintained. Results are intended to be used for clinical purposes only. Sree Graham MD LAB - URINE RECEIVING DISTRIBUTION STATION OPERATOR RY ORDERABLES Performing Organization Address City/State/[facility] Co de Phone Number [facility] [address] [place] [phone], [facility] [phone] * CT CHEST ABDOMEN PELVIS W CONT - Abdomen-pelvis trauma, blunt or penetrating (09/08/2023 2:53 PM LICENSED INSURANCE AGENT) Anatomical Region Laterality Modality Chest, Abdomen, Pelvis Computed Tomography 09/08/2023 2:55 PM LICENSED INSURANCE AGENT Impressions 09/08/2023 3:23 PM LICENSED INSURANCE AGENT IMPRESSION: 1.Soft tissue contusions consistent with [...] 09/08/2023 3:23 PM Narrative 09/08/2023 3:23 PM LICENSED INSURANCE AGENT EXAMINATION: Computed tomography (CT) of the [...] verbally relayed to Dr. Radford by Dr. Peerz and 1521 on 09/08/2023. > Interpreting Provider: Obed Perez MD on 09/08/2023 3:23 PM Sree Graham MD CT ORDERABLES * CT LUMBAR SPINE WO CONTRAST - T/L-spine trauma, Spine fracture (09/08/2023 2:53 PM LICENSED INSURANCE AGENT) Anatomical Region Laterality Modality Spine Computed Tomogra phy 09/08/2023 2:49 PM LICENSED INSURANCE AGENT Impressions 09/08/2023 3:09 PM LICENSED INSURANCE AGENT IMPRESSION: 1. No acute intracranial process. 2. No evidence of acute fracture in the cervical, thoracic, or lumbar spine. > Interpreting Provider: Brenden Nicole MD on 09/08/2023 3:09 PM Narrative 09/08/2023 3:09 PM LICENSED INSURANCE AGENT PROCEDURE: CT HEAD WO CONTRAST, CT LUMBAR SPINE WO CONTRAST, CT THORACIC SPINE WO CONTRAST, CT CERVICAL SPINE WO CONTRAST, DATE/TIME OF EXAM: 09/08/2023 2:54 PM, LOCATION [facility] INDICATION: Trauma ADDITIONAL CLINICAL INFORMATION: Ordering Provider [...] DATE/TIME OF EXAM: 09/08/2023 2:54 PM, LOCATION [facility] INDICATION: Trauma ADDITIONAL CLINICAL INFORMATION: Ordering Provider [...] T/L-spine trauma, spine fracture (09/08/2023 2:53 PM LICENSED INSURANCE AGENT) Anatomical Region Laterality Modality Spine Computed Tomogra phy 09/08/2023 2:49 PM LICENSED INSURANCE AGENT Impressions 09/08/2023 3:09 PM LICENSED INSURANCE AGENT IMPRESSION: 1. No acute intracranial process. 2. No evidence of acute fracture in the cervical, thoracic, or lumbar spine. > Interpreting Provider: Brenden Nicole MD on 09/08/2023 3:09 PM Narrative 09/08/2023 3:09 PM LICENSED INSURANCE AGENT PROCEDURE: CT HEAD WO CONTRAST, CT LUMBAR SPINE WO CONTRAST, CT THORACIC SPINE WO CONTRAST, CT CERVICAL SPINE WO CONTRAST, DATE/TIME OF EXAM: 09/08/2023 2:54 PM, LOCATION [facility] INDICATION: Trauma ADDITIONAL CLINICAL INFORMATION: Ordering Provider [...] DATE/TIME OF EXAM: 09/08/2023 2:54 PM, LOCATION [facility] INDICATION: Trauma ADDITIONAL CLINICAL INFORMATION: Ordering Provider [...] C-Spine Trauma, Spine fracture (09/08/2023 2:53 PM LICENSED INSURANCE AGENT) Anatomical Region Laterality Modality Spine Computed Tomogra phy 09/08/2023 2:49 PM LICENSED INSURANCE AGENT Impressions 09/08/2023 3:09 PM LICENSED INSURANCE AGENT IMPRESSION: 1. No acute intracranial process. 2. No evidence of acute fracture in the cervical, thoracic, or lumbar spine. > Interpreting Provider: Brenden Nicole MD on 09/08/2023 3:09 PM Narrative 09/08/2023 3:09 PM LICENSED INSURANCE AGENT PROCEDURE: CT HEAD WO CONTRAST, CT LUMBAR SPINE WO CONTRAST, CT THORACIC SPINE WO CONTRAST, CT CERVICAL SPINE WO CONTRAST, DATE/TIME OF EXAM: 09/08/2023 2:54 PM, LOCATION [facility] INDICATION: Trauma ADDITIONAL CLINICAL INFORMATION: Ordering Provider [...] DATE/TIME OF EXAM: 09/08/2023 2:54 PM, LOCATION [facility] INDICATION: Trauma ADDITIONAL CLINICAL INFORMATION: Ordering Provider [...] leak, mental status changes (09/08/2023 2:53 PM LICENSED INSURANCE AGENT) Anatomical Region Laterality Modality Head Computed Tomogra phy 09/08/2023 2:49 PM LICENSED INSURANCE AGENT Impressions 09/08/2023 3:09 PM LICENSED INSURANCE AGENT IMPRESSION: 1. No acute intracranial process. 2. No evidence of acute fracture in the cervical, thoracic, or lumbar spine. > Interpreting Provider: Brenden Nicole MD on 09/08/2023 3:09 PM Narrative 09/08/2023 3:09 PM LICENSED INSURANCE AGENT PROCEDURE: CT HEAD WO CONTRAST, CT LUMBAR SPINE WO CONTRAST, CT THORACIC SPINE WO CONTRAST, CT CERVICAL SPINE WO CONTRAST, DATE/TIME OF EXAM: 09/08/2023 2:54 PM, LOCATION [facility] INDICATION: Trauma ADDITIONAL CLINICAL INFORMATION: Ordering Provider [...] DATE/TIME OF EXAM: 09/08/2023 2:54 PM, LOCATION [facility] INDICATION: Trauma ADDITIONAL CLINICAL INFORMATION: Ordering Provider [...] Sree Graham MD CT ORDERABLES * PT-INR [facility] (09/08/2023 2:52 PM LICENSED INSURANCE AGENT) PT 12.4 12.1 - 14.8 Seconds 09/08/2023 3:29 PM LICENSED INSURANCE AGENT [facility] INR 1.0 See Comment 09/08/2023 3:29 PM [facility] Comment:The suggested therap eutic range for standard coumadin (warfarin) therapy is an INR of 2.0-3.0. For high-risk patients (Mechanical Mitral Valve Prosthesis, etc.), the suggested prophylactic therapeutic range is an INR of 2.5-3.5. Blood BLOOD SPECIMEN / Unknown Venipuncture / Unknown 09/08/2023 2:52 PM LICENSED INSURANCE AGENT 09/08/2023 3:05 PM LICENSED INSURANCE AGENT Sree Graham MD LAB - COAGULATION O RDERABLES Performing Organization Address [facility] Co de Phone Number [address] [address], [place] [phone] * CK BLOOD (09/08/2023 2:52 PM LICENSED INSURANCE AGENT) CK Total 116 30 - 200 U/L 09/08/2023 3:38 PM LICENSED INSURANCE AGENT [facility] Blood BLOOD SPECIMEN / Unknown Venipuncture / Unknown 09/08/2023 2:52 PM LICENSED INSURANCE AGENT 09/08/2023 3:05 PM LICENSED INSURANCE AGENT Sree Graham MD LAB - CHEMISTRY ORD ERABLES Performing Organization Address [facility] de Phone Number [address] [address], [facility] [phone] * ALCOHOL ETHYL BLOOD (09/08/2023 2:52 PM LICENSED INSURANCE AGENT) Ethanol (mg/dL) <10 <10 mg/dL 3:38 PM LICENSED INSURANCE AGENT [facility] Ethanol Calculated (g/dL) <0.010 <=0.010 g/dL 09/08/2023 3:38 PM [facility] Blood BLOOD SPECIMEN / Unknown Venipuncture / Unknown 09/08/2023 2:52 PM LICENSED INSURANCE AGENT 09/08/2023 3:05 PM LICENSED INSURANCE AGENT Narrative [facility] - 09/08/2023 3:38 PM LICENSED INSURANCE AGENT Ethanol Interp <10: None Detected. Depression of SEED YEAST OPERATOR: >100 mg/dl Potentially Critical: >250 mg/dl Potentially [...] Graham MD LAB - CHEMISTRY ORD ERABLES [facility] [address] [place] [address], [place] [phone] * HCG URINE QUALITATIVE - POINT OF CARE (AMB) (04/23/2022 11:00 AM CDT) Only the most recent of3 resultswithin the time period is included. HCG Qual Urine Negative Negative [facility] QC Verified Yes Yes [facility] Urine URINE / Unknown 04/23/2022 1 1:00 AM CDT Tonie Garcia MD LAB - POINT OF CARE ORDERABLES [facility] [address], [facility] [address] [place] [address], [facility] [phone] * XR WRIST 3+ VW RIGHT (11/25/2021 [...] Resulting Agency Comment Lab Testing performed at: [facility] [phone] Tonie Garcia MD LAB - MICROBIOLOGY O [facility] INSURANCE BILL [address] [place] [address] * HCG URINE QUALITATIVE - POCT (IP) CHEVY (03/04/2017 1:34 PM CDT) Only the most recent of2 resultswithin the time period is included. HCG Qual Urine Negative Negative [facility] POCT TESTING QC Verified Yes Yes [facility] PO CT TESTING Urine URINE / Unknown 03/04/2017 1 :34 PM CDT Ino Kong MD LAB - POINT OF CARE ORDERABLES [facility] POCT TESTING [address] [phone] * PEDIATRIC DIAGNOSTIC POLYSOMNOGRAM (10/21/2016) Linked Results See Linked Results [facility] 10/21/2016 William Snyder MD [facility] ORDER [facility] * URINALYSIS ROUTINE AUTO (09/02/2016 7:07 PM LICENSED INSURANCE AGENT) Color UA Yellow Straw, Yellow, Dark Yellow 09/02/2016 7:32 PM [facility] Clarity UA Clear 09/02/2016 7:32 PM [facility] Specific [place] UA >=1.030 1.005 - 1.030 09/02/2016 7:32 PM [facility] pH UA 6.0 5.0 - 8.0 pH 09/02/2016 7:32 PM [facility] Protein UA Negative Negative 09/02/2016 7:32 PM [facility] Blood UA Negative Negative 09/02/2016 7:32 PM [facility] Leukocyte UA Negative Negative 09/02/2016 7:32 PM [facility] Nitrite UA Negative Negative 09/02/2016 7:32 PM [facility] Glucose UA Negative Negative 09/02/2016 7:32 PM [facility] Ketone UA Negative Negative 09/02/2016 7:32 PM [facility] Bilirubin UA Negative Negative 09/02/2016 7:32 PM [facility] Urobilinogen UA 0.2 0.1 - 1.0 EU/dL 09/02/2016 7:32 PM [facility] Urine URINE SPECIMEN OBTAINED BY CLEAN CATCH PROCEDURE / Unknown 09/02/2016 7:07 PM LICENSED INSURANCE AGENT 09/02/2016 7:28 PM LICENSED INSURANCE AGENT Allyson Daley MD LAB - URINALYSIS ORD ERABLES Performing Organization Address [facility]/ZIP Co de Phone Number [facility] [address] [place] [address] * URINALYSIS MICROSCOPIC ONLY (09/02/2016 7:07 PM LICENSED INSURANCE AGENT) RBC UA 0-2 0-2, 2-5 # /hpf 09/02/2016 8:03 PM LICENSED INSURANCE AGENT [facility] WBC UA 0-2 0-2, 2-5 # /hpf 09/02/2016 8:03 PM [facility] Bacteria UA Trace None Seen, Trace 09/02/2016 8:03 PM [facility] Epithelial Cell UA 2-5 0-2, 2-5 # /hpf 09/02/2016 8:03 PM [facility] Urine URINE SPECIMEN OBTAINED BY CLEAN CATCH PROCEDURE / Unknown 09/02/2016 7:07 PM LICENSED INSURANCE AGENT 09/02/2016 7:28 PM LICENSED INSURANCE AGENT Allyson Daley MD LAB - URINALYSIS ORD ERABLES Performing Organization Address [facility]/ZIP Co de Phone Number [facility] [address] [place] [phone] * CHLAMYDIA + GC AMPLIFIED PROBE (09/02/2016 7:07 PM LICENSED INSURANCE AGENT) Chlamydia Amplified Probe Negative Negative 09/03/2016 10:34 AM [facility] GC Amplified Probe Negative Negative 09/03/2016 10:34 AM [facility] Microbiology URINE / Unknown 09/02/2016 7 :07 PM LICENSED INSURANCE AGENT 09/02/2016 7:34 PM LICENSED INSURANCE AGENT Narrative [facility]CRO[facility] - 09/03/2016 10:34 AM [facility] This test was developed and its performance characteristics determined by the [facility], [facility]. Female urine specimens tested by the [facility] have not been cleared or approved by [...] Daley MD LAB - MICROBIOLOGY O RDERABLES [facility] [address] [place] [address], [facility] [phone] * (ABNORMAL) SED RATE WESTERGREN (09/02/2016 7:06 PM LICENSED INSURANCE AGENT) Erythrocyte Sedimentation Rate Westergren 18(H) 0 - 12 mm/hr 09/02/2016 7:43 PM LICENSED INSURANCE AGENT [facility] Blood BLOOD SPECIMEN / Unknown 09/02/2016 7:06 PM LICENSED INSURANCE AGENT 09/02/2016 7:29 PM LICENSED INSURANCE AGENT Allyson Daley MD LAB - HEMATOLOGY ORD ERABLES Performing Organization Address City/[facility]/ZIP Co de Phone Number [facility] [place] [address] * LAB RESULTS ORDER (12/06/2015 6:27 PM CDT) Narrative 12/06/2015 6:27 PM CDT Ordered by an unspecified provider. Scanned Document LAB - THERAPEUTIC DR VALENCIA MONITORING ORDERABLES Care Teams Data Power Consultant Relationship Specialty Start Date End Date Provider, No Pcp PCP - General 09/08/23
--- OUTSIDE RECORDS SUMMARY | 2024-09-18 10:49 | XMS_ITS | Clinical Summary ---
Author Organization [facility] Address [address] [place] [address] Phone Care Team Providers Care Cryptologic Linguist Name Role Phone Cehlsie Parra THINNER SPRAYER, SUPERVISOR FABRICATION Primary Care Provider + Allergies Active Allergy [...] needed for Mild or more severe pain. 4 Active hydrOXYzine (ATARAX) 25 MG TabletIndicatio ns:Anxiety Take 1 Tablet by mouth every 6 hours as needed for Anxiety. 90 Tablet 4 Active Benzonatate 200 MG Capsule Take 1 Capsule by mouth 3 times daily as needed for Cough for up to 14 days. 42 Capsule 5 09/25/19 25 Active ondansetron (ZOFRAN) 4 MG TabletIndicatio ns:Nausea and Vomiting Take 1 Tablet by mouth every 8 hours as needed for Nausea - 1st line. Indications: Nausea and Vomiting 10 Tablet Active predniSONE (DELTASONE) 20 MG Tablet Take 1 Tablet by mouth 2 times daily for 5 days. 10 Tablet 5 09/16/19 Active Problems Problem Noted Date Diagnosed Date Adjustment disorder with mixed anxiety and depre ssed mood 02/16/2024 Encounters Date Type Department Care Team Description 09/10/2024 4:06 PM CDT - 09/10/2024 5:38 PM CDT Emergency [facility] [address] [place] [address] [place] May, WALLACE Influenza B Discharge Disposition: Discharged to home or Selfcare 09/10/2024 Travel from Last 3 Months Immunizations Immunization Administration Dates Next Due Covid-19, Mrna, Lnp-s, Pf, 3 0 Mcg/0.3 Ml Dose (Adventi) 12/20/2020,11/29/2020 DTAP VACCINE 06/20/2007, 3,2002,08/29 DTAP VACCINE, [...] Occasionally, 3-4 times per month, [facility] [employer] Answer Date Recorded In the past 12 months has [employer], gas, oil, or water [employer] threatened to shut off services in your [...] 01/30/2024 How often do you attend chur ch or restorationism services? More than 4 times per year 01/30/2024 Do you belong to any clubs o r organizations such as rastafarian groups, unions, fraternal or athletic groups, or [...] medical care, and heating? Very hard 01/30/2024 [facility] - Occupational [...] any time in the past 12 m [facility], were you homeless or living in a fpc (including now)? Yes 01/30/2024 Sexually Active Control [...] DETECTED NOT DETECTED 09/10/2024 5:08 PM CDT [facility] Swab STRUCTURE OF ANTERIOR PORTION OF NECK / Unknown Non-Phlebotomy Collection / Unknown 09/10/2024 4:15 PM CDT 09/10/2024 4:33 PM CDT us [place] May PAC MICROBIOLOGY - GENER AL ORDERABLES Final Result [facility] [address] [place] [address] * (ABNORMAL) RSV,SARS-COV-2,INFLUENZA A&B BY PCR (09/10/2024 4:15 PM CDT) Pathologist [facility] FLU A Negative Negative, Error 09/10/2024 5:15 PM CDT [facility] FLU B Positive(A) Negative 09/10/2024 5:15 PM CDT [facility] RESP SYNC VIRUS Negative Negative 5:15 PM CDT [facility] SARSCOV2 NOT DETECTED (Reference Range for this test is Not Detected) 09/10/2024 5:15 PM CDT [facility] Comment:This test was perfor med by a Reverse Outs[employer] Channel Opener PCR Method. Swab NASOPHARYNGEAL STRUCTURE / Unknown Non-Phlebotomy Collection / Unknown 09/10/2024 4:15 PM CDT 09/10/2024 4:33 PM CDT [place] May PAC MICROBIOLOGY - GENER AL ORDERABLES Final Result [facility] [address] [place] [address] * HEPATITIS C ANTIBODY (02/22/2024 3:11 PM CDT) hepatitis C antibody 0.07 <1 S/CO 02/22/2024 9:[address] [facility] Comment: Signal/Cutoff ratio < 0.79 is Nondetected Signal/Cutoff ratio 0.80-0.99 is Grayzone Signal/Cutoff ratio > 0.99 is Detected Supplemental assays are recommended if signal/cutoff ratio is >/=1.00. Signal/cutoff ratio result >/= 5.00 is 97% predictive of positivity for recombinant immunoblot assay (RIBA) and will be reported to the [place] Department of Public Health as required. Blood Venipuncture / Unknown 02/22/2024 3:11 PM CDT 02/22/2024 3:15 PM CDT Chelsie Parra THINNER SPRAYER, SUPERVISOR FABRICATION CHEMISTRY ORDERABLES Fin al Result Performing Organization Address City/[facility]/ZIP Co de Phone Number [facility] [address] [place] [address], [place] from Last 3 Months or Most Recently Relevant to Health Maintenance Insurance MEDICAID [place] Care Teams Cryptologic Linguist Relationship Specialty Start Date End Date Chelsie Parra, THINNER SPRAYER, SUPERVISOR FABRICATION [address] [place] [address] PCP - General Advanced Practice Nurse 12/27/23
--- OUTSIDE RECORDS SUMMARY | 2024-09-18 10:49 | XMS_ITS | Referral Summary ---
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 Gender Identity Not on file Sexual Orientation [...] LAB BLOOD ORDERABLES Final Resul t [facility] Department [place] [address] from Last 3 Months or Most Recently Relevant to Health Maintenance Insurance [employer] EXCHANGE [employer] [facility] Advance Directives For more information, please contact: [phone] * Full Code (Latest Code Status on File) Date Activated Date Inactivated Comments 10/25/2023 6:12 AM 10/25/2023 7:55 PM Care Teams Ophthalmology Surgical Technician Relationship Specialty Start Date End Date Chencho Teran MD [address] [address] PCP - General Family Medicine 10/25/23
[2024-09-18 13:00] LABS: Influenza A QL RT-PCR Negative (Negative); Influenza B QL RT-PCR Negative (Negative); RSV RNA, RT-PCR Negative (Negative); SARS-CoV-2 RNA PCR Negative (Negative)
--- NOTE | 2024-09-18 13:18 | ED.GENADULT ---
HPI - General Adult General Chief complaint: Back Pain/Injury Stated complaint: pain upon inspiration Time Seen by Provider: 09/18/24 12:02 History of Present Illness HPI narrative: 24-year-old female presents emergency department for evaluation a left-sided pleuritic chest pain. Patient is currently being treated for pneumonia and is currently on Levaquin. Patient has been taking this medication as directed. Patient has not yet completed the antibiotics. States she is still having persistent cough. Patient denies any worsening shortness of breath. Patient is not tachycardic. Patient denies any prior history of PE or DVT. Related Data Allergies Allergy/AdvReac Type Severity Reaction Status Date / Time amoxicillin Allergy Mild Nausea Verified 09/15/24 10:09 clavulanic acid Allergy Mild Nausea Verified 09/15/24 10:09 ziprasidone Allergy Unknown VOMITING/RA Verified 09/15/24 10:09 SH doxycycline AdvReac Other Verified 09/15/24 10:09 AMOXICILLIN TRIHYDRATE Allergy Unknown Nausea and Uncoded 09/15/24 10:09 Vomiting Review of Systems Review of Systems: All systems reviewed & are unremarkable except as noted in HPI and below Exam Narrative: APPEARANCE: Well appearing, no pain, no distress, well-nourished. HEAD: normocephalic, atraumatic. EYES: PERRLA/EOMI, conjunctivae clear. NOSE: Normal no drainage EARS:TMS clear with good light reflex. THROAT: Pharynx clear, no exudate. NECK: Supple. No adenopathy, no masses. RESPIRATORY: Airway patent, respirations nonlabored. Clear to auscultation bilaterally, no rales, rhonchi, wheezing. CARDIOVASCULAR: Regular rate and rhythm without murmurs rubs or gallops. ABDOMINAL: Soft, nontender, nondistended, normal bowel sounds MUSCULOSKELETAL: Moves all extremities. Strength/ROM intact, No edema, No calf tenderness. NEURO: Alert. Cranial nerves II through XII intact. Grossly intact SKIN: Warm, dry. Normal Color Course Vital Signs Vital signs: Vital Signs Temperature 98.4 F 09/18/24 10:14 Pulse Rate 77 09/18/24 10:14 Respiratory Rate 15 09/18/24 10:14 Blood Pressure 125/81 09/18/24 10:14 Pulse Oximetry 100 09/18/24 10:14 Temperature 97.9 F 09/18/24 13:41 Pulse Rate 87 09/18/24 13:41 Respiratory Rate 21 H 09/18/24 13:41 Blood Pressure 137/84 09/18/24 13:41 Pulse Oximetry 97 09/18/24 13:41 Oxygen Delivery Room Air 09/18/24 11:43 Medical Decision Making MDM Narrative Medical decision making narrative: 24-year-old female present to the emergency department for evaluation for left-sided pleuritic chest pain. Low concern for pulmonary embolism. Patient is negative for influenza RSV and for COVID, patient does still have a residual left-sided pneumonia. Patient is being prescribed naproxen to help with the suspected pleuritic chest pain. Patient is also being given a refill for her Tessalon Perles. Differential Diagnosis Differential Diagnosis: COVID, RSV, influenza, pneumonia Vital Signs Vital Signs: Vital Signs Temperature 98.4 F 09/18/24 10:14 Pulse Rate 77 09/18/24 10:14 Respiratory Rate 15 09/18/24 10:14 Blood Pressure 125/81 09/18/24 10:14 Pulse Oximetry 100 09/18/24 10:14 Temperature 97.9 F 09/18/24 13:41 Pulse Rate 87 09/18/24 13:41 Respiratory Rate 21 H 09/18/24 13:41 Blood Pressure 137/84 09/18/24 13:41 Pulse Oximetry 97 09/18/24 13:41 Oxygen Delivery Room Air 09/18/24 11:43 Lab Data Lab results reviewed: Yes I reviewed the patient's lab results. Labs: Lab Results 09/18/24 Range/Units 12:20 Influenza A (RT-PCR) Negative (Negative) Influenza B (RT-PCR) Negative (Negative) RSV (RT-PCR) Negative (Negative) SARS-CoV-2 RNA (RT-PCR) Negative (Negative) Imaging Data Radiologist's impression: Impressions Chest X-Ray 09/18/24 12:51 IMPRESSION: 1. No significant change in left lower lobe pneumonia. Discharge Plan Discharge Clinical Impression: Pleurisy Patient Disposition: Home, Self-Care Condition: Stable Instructions: Antibiotic Form, Pleurisy (DC), Pneumonia (ED) Additional Instructions: Ibuprofen for pleuritic chest wall pain. Tessalon Perles for cough. Continue to take your antibiotic until completed. Tylenol for fever control. Have close follow-up with your primary care physician. Patient Language: Citizen Of [place] Prescriptions: New benzonatate 100 mg capsule 100 mg PO TID PRN (Reason: cough) Qty: 14 0RF No Action levofloxacin 750 mg tablet 750 mg PO DAILY 5 Days Qty: 5 0RF ondansetron 4 mg tablet,disintegrating 4 mg PO Q8H PRN (Reason: nausea and vomiting) Qty: 10 0RF guaifenesin [Mucinex] 1,200 mg tablet extended release 12hr 1,200 mg PO Q12H Qty: 20 0RF hydrocodone-acetaminophen 5-325 mg tablet 1 tablet PO Q6H PRN (Reason: pain) Qty: 14 0RF Follow-up/Referrals: Chelsie Parra RN [Primary Care Provider] -
[2024-09-18] MEDS: KETOROLAC 30 MG/ML VIAL (*BKC) IM (13:36)
[2024-09-18 13:41] VITALS: BP 137/84; PULSE 87; RESP 21; TEMP 36.6; O2SAT 97
--- OUTSIDE RECORDS SUMMARY | 2024-09-18 14:37 | XMS_ITS | Patient Health Summary ---
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 BROTH MIXER IMPRESSION: 1. No acute intracranial process. 2. No evidence of acute fracture in the cervical, thoracic, or lumbar spine. > Interpreting Provider: Brenden Nicole MD on 09/08/2023 3:09 PM Narrative 09/08/2023 3:09 PM BROTH MIXER PROCEDURE: CT HEAD WO CONTRAST, CT LUMBAR SPINE WO CONTRAST, CT THORACIC SPINE WO CONTRAST, CT CERVICAL SPINE WO CONTRAST, DATE/TIME OF EXAM: 09/08/2023 2:54 PM, LOCATION [facility] INDICATION: Trauma ADDITIONAL CLINICAL INFORMATION: Ordering Provider [...] DATE/TIME OF EXAM: 09/08/2023 2:54 PM, LOCATION [facility] INDICATION: Trauma ADDITIONAL CLINICAL INFORMATION: Ordering Provider [...] T/L-spine trauma, spine fracture (09/08/2023 2:53 PM BROTH MIXER) Anatomical Region Laterality Modality Spine Computed Tomogra phy 09/08/2023 2:49 PM BROTH MIXER Impressions 09/08/2023 3:09 PM BROTH MIXER IMPRESSION: 1. No acute intracranial process. 2. No evidence of acute fracture in the cervical, thoracic, or lumbar spine. > Interpreting Provider: Brenden Nicole MD on 09/08/2023 3:09 PM Narrative 09/08/2023 3:09 PM BROTH MIXER PROCEDURE: CT HEAD WO CONTRAST, CT LUMBAR SPINE WO CONTRAST, CT THORACIC SPINE WO CONTRAST, CT CERVICAL SPINE WO CONTRAST, DATE/TIME OF EXAM: 09/08/2023 2:54 PM, LOCATION [facility] INDICATION: Trauma ADDITIONAL CLINICAL INFORMATION: Ordering Provider [...] DATE/TIME OF EXAM: 09/08/2023 2:54 PM, LOCATION [facility] INDICATION: Trauma ADDITIONAL CLINICAL INFORMATION: Ordering Provider [...] C-Spine Trauma, Spine fracture (09/08/2023 2:53 PM BROTH MIXER) Anatomical Region Laterality Modality Spine Computed Tomogra phy 09/08/2023 2:49 PM BROTH MIXER Impressions 09/08/2023 3:09 PM BROTH MIXER IMPRESSION: 1. No acute intracranial process. 2. No evidence of acute fracture in the cervical, thoracic, or lumbar spine. > Interpreting Provider: Brenden Nicole MD on 09/08/2023 3:09 PM Narrative 09/08/2023 3:09 PM BROTH MIXER PROCEDURE: CT HEAD WO CONTRAST, CT LUMBAR SPINE WO CONTRAST, CT THORACIC SPINE WO CONTRAST, CT CERVICAL SPINE WO CONTRAST, DATE/TIME OF EXAM: 09/08/2023 2:54 PM, LOCATION [facility] INDICATION: Trauma ADDITIONAL CLINICAL INFORMATION: Ordering Provider [...] DATE/TIME OF EXAM: 09/08/2023 2:54 PM, LOCATION [facility] INDICATION: Trauma ADDITIONAL CLINICAL INFORMATION: Ordering Provider [...] leak, mental status changes (09/08/2023 2:53 PM BROTH MIXER) Anatomical Region Laterality Modality Head Computed Tomogra phy 09/08/2023 2:49 PM BROTH MIXER Impressions 09/08/2023 3:09 PM BROTH MIXER IMPRESSION: 1. No acute intracranial process. 2. No evidence of acute fracture in the cervical, thoracic, or lumbar spine. > Interpreting Provider: Brenden Nicole MD on 09/08/2023 3:09 PM Narrative 09/08/2023 3:09 PM BROTH MIXER PROCEDURE: CT HEAD WO CONTRAST, CT LUMBAR SPINE WO CONTRAST, CT THORACIC SPINE WO CONTRAST, CT CERVICAL SPINE WO CONTRAST, DATE/TIME OF EXAM: 09/08/2023 2:54 PM, LOCATION [facility] INDICATION: Trauma ADDITIONAL CLINICAL INFORMATION: Ordering Provider [...] DATE/TIME OF EXAM: 09/08/2023 2:54 PM, LOCATION [facility] INDICATION: Trauma ADDITIONAL CLINICAL INFORMATION: Ordering Provider [...] Sree Graham MD CT ORDERABLES * PT-INR [facility] (09/08/2023 2:52 PM BROTH MIXER) PT 12.4 12.1 - 14.8 Seconds 09/08/2023 3:29 PM BROTH MIXER [facility] INR 1.0 See Comment 09/08/2023 3:29 PM [facility] Comment:The suggested therap eutic range for standard coumadin (warfarin) therapy is an INR of 2.0-3.0. For high-risk patients (Mechanical Mitral Valve Prosthesis, etc.), the suggested prophylactic therapeutic range is an INR of 2.5-3.5. Blood BLOOD SPECIMEN / Unknown Venipuncture / Unknown 09/08/2023 2:52 PM BROTH MIXER 09/08/2023 3:05 PM BROTH MIXER Sree Graham MD LAB - COAGULATION O RDERABLES Performing Organization Address [facility] Co de Phone Number [address] [address], [place] [phone] * CK BLOOD (09/08/2023 2:52 PM BROTH MIXER) CK Total 116 30 - 200 U/L 09/08/2023 3:38 PM BROTH MIXER [facility] Blood BLOOD SPECIMEN / Unknown Venipuncture / Unknown 09/08/2023 2:52 PM BROTH MIXER 09/08/2023 3:05 PM BROTH MIXER Sree Graham MD LAB - CHEMISTRY ORD ERABLES Performing Organization Address [facility] de Phone Number [address] [address], [facility] [phone] * ALCOHOL ETHYL BLOOD (09/08/2023 2:52 PM BROTH MIXER) Ethanol (mg/dL) <10 <10 mg/dL 3:38 PM BROTH MIXER [facility] Ethanol Calculated (g/dL) <0.010 <=0.010 g/dL 09/08/2023 3:38 PM [facility] Blood BLOOD SPECIMEN / Unknown Venipuncture / Unknown 09/08/2023 2:52 PM BROTH MIXER 09/08/2023 3:05 PM BROTH MIXER Narrative [facility] - 09/08/2023 3:38 PM BROTH MIXER Ethanol Interp <10: None Detected. Depression of DRAFTSPERSON: >100 mg/dl Potentially Critical: >250 mg/dl Potentially [...] Graham MD LAB - CHEMISTRY ORD ERABLES [facility] [address] [place] [address], [place] [phone] * HCG URINE QUALITATIVE - POINT OF CARE (AMB) (04/23/2022 11:00 AM CDT) Only the most recent of3 resultswithin the time period is included. HCG Qual Urine Negative Negative [facility] QC Verified Yes Yes [facility] Urine URINE / Unknown 04/23/2022 1 1:00 AM CDT Tonie Garcia MD LAB - POINT OF CARE ORDERABLES [facility] [address], [facility] [address] [place] [address], [facility] [phone] * XR WRIST 3+ VW RIGHT (11/25/2021 [...] Resulting Agency Comment Lab Testing performed at: [facility] [phone] Tonie Garcia MD LAB - MICROBIOLOGY O RDLINDSAY [facility] INSURANCE BILL [address] [place] [address] * HCG URINE QUALITATIVE - POCT (IP) CHEVY (03/04/2017 1:34 PM CDT) Only the most recent of2 resultswithin the time period is included. HCG Qual Urine Negative Negative [facility] POCT TESTING QC Verified Yes Yes [facility] PO CT TESTING Urine URINE / Unknown 03/04/2017 1 :34 PM CDT Ino Kong MD LAB - POINT OF CARE ORDERABLES [facility] POCT TESTING [address] [phone] * PEDIATRIC DIAGNOSTIC POLYSOMNOGRAM (10/21/2016) Linked Results See Linked Results [facility] 10/21/2016 William Snyder MD [facility] CENTER ORDER [facility] * URINALYSIS ROUTINE AUTO (09/02/2016 7:07 PM BROTH MIXER) Color UA Yellow Straw, Yellow, Dark Yellow 09/02/2016 7:32 PM [facility] Clarity UA Clear 09/02/2016 7:32 PM [facility] Specific [place] UA >=1.030 1.005 - 1.030 09/02/2016 7:32 PM [facility] pH UA 6.0 5.0 - 8.0 pH 09/02/2016 7:32 PM [facility] Protein UA Negative Negative 09/02/2016 7:32 PM [facility] Blood UA Negative Negative 09/02/2016 7:32 PM [facility] Leukocyte UA Negative Negative 09/02/2016 7:32 PM [facility] Nitrite UA Negative Negative 09/02/2016 7:32 PM [facility] Glucose UA Negative Negative 09/02/2016 7:32 PM [facility] Ketone UA Negative Negative 09/02/2016 7:32 PM [facility] Bilirubin UA Negative Negative 09/02/2016 7:32 PM [facility] Urobilinogen UA 0.2 0.1 - 1.0 EU/dL 09/02/2016 7:32 PM [facility] Urine URINE SPECIMEN OBTAINED BY CLEAN CATCH PROCEDURE / Unknown 09/02/2016 7:07 PM BROTH MIXER 09/02/2016 7:28 PM BROTH MIXER Allyson Daley MD LAB - URINALYSIS ORD ERABLES Performing Organization Address [facility]/ZIP Co de Phone Number [facility] [address] [place] [address] * URINALYSIS MICROSCOPIC ONLY (09/02/2016 7:07 PM BROTH MIXER) RBC UA 0-2 0-2, 2-5 # /hpf 09/02/2016 8:03 PM BROTH MIXER [facility] WBC UA 0-2 0-2, 2-5 # /hpf 09/02/2016 8:03 PM [facility] Bacteria UA Trace None Seen, Trace 09/02/2016 8:03 PM [facility] Epithelial Cell UA 2-5 0-2, 2-5 # /hpf 09/02/2016 8:03 PM [facility] Urine URINE SPECIMEN OBTAINED BY CLEAN CATCH PROCEDURE / Unknown 09/02/2016 7:07 PM BROTH MIXER 09/02/2016 7:28 PM BROTH MIXER Allyson Daley MD LAB - URINALYSIS ORD ERABLES Performing Organization Address [facility]/ZIP Co de Phone Number [facility] [address] [place] [id number] * CHLAMYDIA + GC AMPLIFIED PROBE (09/02/2016 7:07 PM BROTH MIXER) Chlamydia Amplified Probe Negative Negative 09/03/2016 10:34 AM [facility] GC Amplified Probe Negative Negative 09/03/2016 10:34 AM [facility] Microbiology URINE / Unknown 09/02/2016 7 :07 PM BROTH MIXER 09/02/2016 7:34 PM BROTH MIXER Narrative [facility]CRO[facility] - 09/03/2016 10:34 AM [facility] This test was developed and its performance characteristics determined by the [facility], [facility]. Female urine specimens tested by the [facility] have not been cleared or approved by [...] Daley MD LAB - MICROBIOLOGY O RDERABLES [facility] MICROBIOLOG[facility] [address] [place] [address], [facility] [phone] * (ABNORMAL) SED RATE WESTERGREN (09/02/2016 7:06 PM BROTH MIXER) Erythrocyte Sedimentation Rate Westergren 18(H) 0 - 12 mm/hr 09/02/2016 7:43 PM BROTH MIXER [facility] Blood BLOOD SPECIMEN / Unknown 09/02/2016 7:06 PM BROTH MIXER 09/02/2016 7:29 PM BROTH MIXER Allyson Daley MD LAB - HEMATOLOGY ORD ERABLES Performing Organization Address City/[facility]/ZIP Co de Phone Number [facility] [place] [address] * LAB RESULTS ORDER (12/06/2015 6:27 PM CDT) Narrative 12/06/2015 6:27 PM CDT Ordered by an unspecified provider. Scanned Document LAB - THERAPEUTIC DR VALENCIA MONITORING ORDERABLES Care Teams Tape Deck Installer Relationship Specialty Start Date End Date Provider, No Pcp PCP - General 09/08/23
--- OUTSIDE RECORDS SUMMARY | 2024-09-18 14:38 | XMS_ITS | Clinical Summary ---
Author Organization [facility] Address [address] [place] [address] Care Team Providers Care Carton Catcher Name Role Phone Chencho Teran MD Primary Care Provider [phone] Allergies Active Allergy Reactions Criticality Noted [...] procedures: - 09/07 exlap, sigmoidectomy, primary anastomosis ([facility]) - 09/15 re-exploration, resection of previous anastomosis for leak, descending colon to rectum primary anastomosis, pedicled omental flap, clean closure ([facility]) - 09/23 IR drain for intra-abdominal fluid collection/abscess Intra-abdominal abscess 10/25/2023 Assessment & Plan (10/25/2023 11:39 AM CDT): RLQ fluid collection s/p bowel resection c/b anastomotic leak requiring re-exploration and additional resection. Initial IR drain placement at [facility] on 09/23, presented to 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 Gender Identity Not on file Sexual Orientation [...] LAB BLOOD ORDERABLES Final Resul t [facility] [place] [address] from Last 3 Months or Most Recently Relevant to Health Maintenance Insurance [facility] [email or web address] [place] [address] [address] [employer] EXCHANGE Member Subscriber Plan / Payer (Ef fective 2023-Present) Name:Patricia New Relation to Subscriber:Self Name:Patricia New Payer ID:[id number] (NAIC) Type:HEALTHCARE/EXCHANGE Address: [facility] [id number] Advance Directives For more information, please contact: [phone] * Full Code (Latest Code Status on File) Date Activated Date Inactivated Comments 10/25/2023 6:12 AM 10/25/2023 7:55 PM Care Teams Carton Catcher Relationship Specialty Start Date End Date Chencho Teran MD [address] [address] PCP - General Family Medicine 10/25/23
--- OUTSIDE RECORDS SUMMARY | 2024-09-18 14:38 | XMS_ITS | Referral Summary ---
Author Organization [facility] Address [address] [facility] [place] [address] Care Team Providers Care Digital Strategist Senior Manager Name Role Phone Provider, No Pcp Primary Care Provider Unavailab le Source Comments [facility],non-owned Affiliates and Associated Physician Practices is amultiple site organization consisting of ambulatory clinics and hospital sitesin [place], [place], [place] and [place]. This disclosure is being madepursuant to the Care Everywhere program and may not contain all information available regarding this patient. Last updated 18.[facility] Allergies Active Allergy Reactions Criticality Noted Date [...] Date Recorded PHQ2 TOTAL SCORE 2 08/16/2021 [facility] - Occupational [...] place to sleep or slept in a alf (including now)? Yes 09/17/2023 Sex and Gender Information Value Date Recorded Sex Assigned at Female 08/16/2021 9:43 AM LITHODUPLICATOR OPERATOR Gender Identity Female 08/16/2021 9:43 AM LITHODUPLICATOR OPERATOR Sexual Orientation Bisexual 08/16/2021 9: 43 AM LITHODUPLICATOR OPERATOR Last Filed Vital Signs Vital Sign Reading [...] Resulting Agency Comment Lab Testing performed at: [facility] [phone] Tonie Garcia MD LAB - MICROBIOLOGY O RDERABLES [facility] INSURANCE BILL [address] [place] [address] from Last 3 Months or Most Recently Relevant to Health Maintenance Advance Directives * Full Code (Latest Code Status on File) Date Activated Date Inactivated Comments 09/17/2023 7:49 AM 09/25/2023 11:43 AM * Full Code Date Activated Date Inactivated Comments 09/17/2023 3:28 AM 09/17/2023 3:29 AM * Full Code Date Activated Date Inactivated Comments 09/08/2023 5:46 PM 09/11/2023 10:57 AM Care Teams Digital Strategist Senior Manager Relationship Specialty Start Date End Date Provider, No Pcp PCP - General 09/08/23
--- OUTSIDE RECORDS SUMMARY | 2024-09-18 14:38 | XMS_ITS | Referral Summary ---
Author Organization [facility] Address [address] [place] [address] Care Team Providers Care Car Hostler Name Role Phone Chencho Teran MD Primary Care Provider [phone] Allergies Active Allergy Reactions Criticality Noted Date [...] procedures: - 09/07 exlap, sigmoidectomy, primary anastomosis ([facility]) - 09/15 re-exploration, resection of previous anastomosis for leak, descending colon to rectum primary anastomosis, pedicled omental flap, clean closure ([facility]) - 09/23 IR drain for intra-abdominal fluid collection/abscess Intra-abdominal abscess 10/25/2023 Assessment & Plan (10/25/2023 11:39 AM CDT): RLQ fluid collection s/p bowel resection c/b anastomotic leak requiring re-exploration and additional resection. Initial IR drain placement at 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 Gender Identity Not on file Sexual Orientation [...] LAB BLOOD ORDERABLES Final Resul t [facility] Department [place] [address] from Last 3 Months or Most Recently Relevant to Health Maintenance Insurance [employer] EXCHANGE [employer] EXCHANGE [facility] Advance Directives For more information, please contact: [phone] * Full Code (Latest Code Status on File) Date Activated Date Inactivated Comments 10/25/2023 6:12 AM 10/25/2023 7:55 PM Care Teams Car Hostler Relationship Specialty Start Date End Date Chencho Teran MD [address] [address] PCP - General Family Medicine 10/25/23
--- OUTSIDE RECORDS SUMMARY | 2024-09-18 14:38 | XMS_ITS | Encounter Summary ---
Author Organization [facility] Address [address] [place] [address] Care Team Providers Care Trommel Tender Name Role Phone Paula Crockett Primary Care Provider [phone] Josefina Hess MD Primary Care Provider [phone] Encounter Details Date Type Department Care Team (Late st Contact Info) Description 2002 Abstract [facility]FL CONVERSION [address] [place] [address] , Generic Conversion, Social History Tobacco Use Types Packs/Day Years Used Date Smoking Tobacco: Never Assessed Comments Unknown Sex and Gender Information Value Date Recorded Sex Assigned at Female 08/17/2024 8:56 AM DAIRY EQUIPMENT MECHANIC Legal Sex Female 7:06 AM CDT Gender [...] Rule Out 06/29/2024 06/29/2024 06/29/2024 6:10 PM DAIRY EQUIPMENT MECHANIC Influenza - Seasonal 06/29/2024 06/29/2024 025 12:32 AM DAIRY EQUIPMENT MECHANIC documented as of this encounter Care Teams Trommel Tender Relationship Specialty Start Date End Date Paula Crockett FNP PCP - General NURSE PRACTITIONER 12/01/22 12/30/22 Josefina Hess MD [address] [place] [address] PCP - General FAMILY PRACTICE 12/31/22 documented as of this encounter
--- OUTSIDE RECORDS SUMMARY | 2024-09-18 14:38 | XMS_ITS | Clinical Summary ---
Author Organization [facility] Address [address] [place] [address] Phone Care Team Providers Care Feather Maker Name Role Phone Chelsie Parra [employer]ATION ATTENDANT, DRYWALL HANGER HELPER Primary Care Provider + Allergies Active Allergy [...] 09/10/2024 5:38 PM CDT Emergency [facility] Emergency [address] [place] [address] Milan May, WALLACE Influenza B Discharge Disposition: Discharged to home or Selfcare 09/10/2024 Travel from Last 3 Months Immunizations Immunization Administration Dates Next Due Covid-19, Mrna, Lnp-s, Pf, 3 0 Mcg/0.3 Ml Dose (Sopogy) 12/20/2020,11/29/2020 DTAP VACCINE 06/20/2007, 3,2002,08/29 DTAP VACCINE, [...] Occasionally, 3-4 times per month, [facility] [employer] Answer Date Recorded In the past 12 months has [employer], gas, oil, or water [employer] threatened to shut off services in your [...] often do you attend chur ch or jew services? More than 4 times per year 01/30/2024 Do you belong to any clubs o r organizations such as temple groups, unions, fraternal or athletic groups, or [...] medical care, and heating? Very hard 01/30/2024 [facility] - Occupational [...] any time in the past 12 m [facility], were you homeless or living in a half-way (including now)? Yes 01/30/2024 Sexually Active Control [...] BY PCR (09/10/2024 4:15 PM CDT) Pathologist [facility] GROUP A STREP BY PCR NOT DETECTED NOT DETECTED 09/10/2024 5:08 PM CDT [facility] Swab STRUCTURE OF ANTERIOR PORTION OF NECK / Unknown Non-Phlebotomy Collection / Unknown 09/10/2024 4:15 PM CDT 09/10/2024 4:33 PM CDT us Milan May PAC MICROBIOLOGY - GENER AL ORDERABLES Final Result [facility] [address] [place] [address] * (ABNORMAL) RSV,SARS-COV-2,INFLUENZA A&B BY PCR (09/10/2024 4:15 PM CDT) Pathologist [facility] FLU A Negative Negative, Error 09/10/2024 5:15 PM CDT [facility] FLU B Positive(A) Negative 09/10/2024 5:15 PM CDT [facility] RESP SYNC VIRUS Negative Negative 5:15 PM CDT [facility] SARSCOV2 NOT DETECTED (Reference Range for this test is Not Detected) 09/10/2024 5:15 PM CDT [facility] Comment:This test was perfor med by a [employer] Teacher PCR Method. Swab NASOPHARYNGEAL STRUCTURE / Unknown Non-Phlebotomy Collection / Unknown 09/10/2024 4:15 PM CDT 09/10/2024 4:33 PM CDT Milan May PAC MICROBIOLOGY - GENER AL ORDERABLES Final Result [facility] [address] [place] [address] * HEPATITIS C ANTIBODY (02/22/2024 3:11 PM CDT) hepatitis C antibody 0.07 <1 S/CO 02/22/2024 9:29 PM CDT [facility] Comment: Signal/Cutoff ratio < 0.79 is Nondetected Signal/Cutoff ratio 0.80-0.99 is Grayzone Signal/Cutoff ratio > 0.99 is Detected Supplemental assays are recommended if signal/cutoff ratio is >/=1.00. Signal/cutoff ratio result >/= 5.00 is 97% predictive of positivity for recombinant immunoblot assay (RIBA) and will be reported to the [place] Department of Public [facility] as required. Blood Venipuncture / Unknown 02/22/2024 3:11 PM CDT 02/22/2024 3:15 PM CDT Chelsie Parra [employer]ATION ATTENDANT, DRYWALL HANGER HELPER CHEMISTRY ORDERABLES Fin al Result Performing Organization Address City/[facility]/ZIP Co de Phone Number [facility] [address] [place] [address], [place] from Last 3 Months or Most Recently Relevant to Health Maintenance Insurance MEDICAID [place] Care Teams Feather Maker Relationship Specialty Start Date End Date Chelsie Parra, [employer]ATION ATTENDANT, DRYWALL HANGER HELPER [address] [place] [address] PCP - General Advanced Practice Nurse 12/27/23
--- OUTSIDE RECORDS SUMMARY | 2024-09-18 14:38 | XMS_ITS | Clinical Summary ---
Author Organization [facility] Address [address] [place] [address] Care Team Providers Care Pca Name Role Phone Provider, No Pcp Primary Care Provider Unavailab le Source Comments [facility],non-owned Affiliates and Associated Physician Practices is amultiple site organization consisting of ambulatory clinics and hospital sitesin [place], [place], [place] and [place]. This disclosure is being madepursuant to the Care Everywhere program and may not contain all information available regarding this patient. Last updated 18.[facility] Allergies Active Allergy Reactions Criticality Noted Date [...] place to sleep or slept in a assisted (including now)? Yes 09/17/2023 Sex and Gender Information Value Date Recorded Sex Assigned at Female 08/16/2021 9:43 AM ACCOUNT PROCESSOR Gender Identity Female 08/16/2021 9:43 AM ACCOUNT PROCESSOR Sexual Orientation Bisexual 08/16/2021 9: 43 AM ACCOUNT PROCESSOR Last Filed Vital Signs Vital Sign Reading [...] Resulting Agency Comment Lab Testing performed at: [address] [id number] Tonie Garcia MD LAB - MICROBIOLOGY O RDERABLES [facility] INSURANCE BILL [address] [place] [address] from Last 3 Months or Most Recently Relevant to Health Maintenance Advance Directives * Full Code (Latest Code Status on File) Date Activated Date Inactivated Comments 09/17/2023 7:49 AM 09/25/2023 11:43 AM * Full Code Date Activated Date Inactivated Comments 09/17/2023 3:28 AM 09/17/2023 3:29 AM * Full Code Date Activated Date Inactivated Comments 09/08/2023 5:46 PM 09/11/2023 10:57 AM Care Teams Pca Relationship Specialty Start Date End Date Provider, No Pcp PCP - General 09/08/23
--- OUTSIDE RECORDS SUMMARY | 2024-09-18 14:38 | XMS_ITS | Clinical Summary ---
Author Organization [facility] Address [address] [place] [address] Care Team Providers Care Lease Buyer Name Role Phone Josefina Hess MD Primary Care Provider [phone] Allergies Active Allergy Reactions Criticality Noted Date Comments Amoxicillin Rash Low 09/04/2022 Amoxicillin-Pot Clavulanate Rash Low 09/05/19 23 Bee Venom Anaphylaxis High 09/04/2022 Doxycycline Photosensitivity 09/04/2022 Ziprasidone Nausea Only 09/04/2022 Medications hydrOXYzine (ATARAX) 25 MG tablet Take 1 tablet (25 mg total) by mouth every 4 (four) hours as needed. Active Encounters Date Type Department Care Team Description 08/17/2024 8:44 AM [facility] - 08/17/2024 12:08 PM [facility] Emergency [facility] [place] [address] Deshaun Kong DO Back Pain Discharge Disposition: Home or Self Care (Routine Discharge) 08/17/2024 Travel 06/29/2024 4:28 PM BEAN WEIGHER - 06/29/2024 7:04 PM [facility] Emergency [facility] [place] [address] Milan Major PA Body Aches (Body aches) [...] Sex Assigned at Female 08/17/2024 8:56 AM BEAN WEIGHER Legal Sex Female 7:06 AM CDT Gender Identity Not on file Sexual Orientation Not on file Last Filed Vital Signs Vital Sign Reading Time Taken Comments Blood Pressure 108/51 08/17/2024 10:08 AM BEAN WEIGHER Pulse 66 08/17/2024 10:08 AM BEAN WEIGHER Temperature 36.1 C (96.9 F) 08/17/2024 8:48 AM BEAN WEIGHER Respiratory Rate 18 08/17/2024 10:08 AM BEAN WEIGHER Oxygen Saturation 97% 08/17/2024 10:08 AM BEAN WEIGHER Inhaled Oxygen Concentration - - Weight 98.9 kg (218 lb) 08/17/2024 8:48 AM BEAN WEIGHER Height 165.1 cm (5' 5 ) 08/17/2024 8:48 AM BEAN WEIGHER Body Mass Index 36.28 08/17/2024 8:48 AM BEAN WEIGHER Plan of Treatment Health Maintenance Due Date [...] Comments TEST URINE STAT 08/17/2024 10:10 AM BEAN WEIGHER HC URINALYSIS AUTO W/MICRO STAT 08/17/2024 10:10 AM BEAN WEIGHER LIPASE STAT 08/17/2024 9:15 AM BEAN WEIGHER COMPREHENSIVE METABOLIC PANEL STAT 08/17/2024 9:15 AM BEAN WEIGHER CBC W/DIFF AUTOMATED STAT 08/17/2024 9:15 AM BEAN WEIGHER XR CHEST PA+LAT STAT 06/29/2024 5:50 PM BEAN WEIGHER POCT URINE (BACK OFFICE) STAT 06/29/2024 5:09 PM BEAN WEIGHER CORONAVIRUS (COVID 19) STAT 5:02 PM BEAN WEIGHER INFLUENZA A & B STAT 06/29/2024 5:02 PM BEAN WEIGHER from Last 3 Months Results * (ABNORMAL) URINALYSIS (08/17/2024 10:10 AM BEAN WEIGHER) COLOR (U) YELLOW 08/17/2024 10:32 AM BEAN WEIGHER [facility] TRANSPARENCY CLEAR 08/17/2024 10:32 AM BEAN WEIGHER [facility] SPECIFIC GRAVITY (U) 1.020 1.000 - 1.025 08/17/2024 10:32 AM BEAN WEIGHER [facility] U PH 6.0 5.0 - 8.0 08/17/2024 10:32 AM BEAN WEIGHER [facility] LEUKOCYTES (U) NEGATIVE NEGATIVE 08/17/2024 10:32 AM BEAN WEIGHER [facility] NITRITES NEGATIVE NEGATIVE 08/17/2024 10:32 AM BEAN WEIGHER [facility] PROTEIN RANDOM (U) NEGATIVE NEGATIVE 08/17/2024 10:32 AM [facility] GLUCOSE (U) NEGATIVE NEGATIVE 08/17/2024 10:32 AM [facility] KETONES MG/DL (U) NEGATIVE NEGATIVE 08/17/2024 10:32 AM [facility] UROBILINOGEN 0.2 <1.0 EU/DL 08/17/2024 10:32 AM [facility] BILIRUBIN (U) NEGATIVE NEGATIVE 08/17/2024 10:32 AM [facility] BLOOD (U) NEGATIVE NEGATIVE 08/17/2024 10:32 AM [facility] WBC/HPF NONE SEEN(A) 0 - 5 /HPF 08/17/2024 10:32 AM [facility] EPI/LPF 20-50 /LPF 08/17/2024 10:32 AM [facility] BACTERIA (U) 2+ /HPF 08/17/2024 10:32 AM BEAN WEIGHER [facility] URINE SPECIMEN OBTAINED BY CLEAN CATCH PROCEDURE / Unknown 08/17/2024 10:10 AM BEAN WEIGHER us Deshaun Kong DO URINE ORDERABLES Final Result Performing Organization Address City/[facility]/ZIP Co de Phone Number [facility] [address] [place] [address], * TEST URINE (08/17/2024 10:10 AM BEAN WEIGHER) URINE HCG TEST NEGATIVE 08/17/2024 10:33 AM BEAN WEIGHER [facility] SPECIFIC GRAVITY 1.020 08/17/2024 10:33 AM BEAN WEIGHER [facility] URINE SPECIMEN FROM URETHRA / Unknown 08/17/2024 10:10 AM BEAN WEIGHER us Deshaun Kong DO URINE ORDERABLES Final Result Performing Organization Address [facility]/ZIP Co de Phone Number [facility] [place] [address], [place] [phone] * (ABNORMAL) COMPREHENSIVE METABOLIC PANEL (08/17/2024 9:15 AM [facility]) SODIUM S/P/B 141 136 - 145 MMOL/L 08/17/2024 9:35 AM [facility] POTASSIUM S/P/B 4.5 3.5 - 5.1 MMOL/L 08/17/2024 9:35 AM [facility] CHLORIDE S/P/B 103 98 - 107 MMOL/L 08/17/2024 9:35 AM [facility] CO2 24.9 21.0 - 32.0 MMOL/L 08/17/2024 9:35 AM [facility] GLUCOSE 86 70 - 99 MG/DL 08/17/2024 9:35 AM [facility] Comment: FASTING GLUCOSE 100 TO 125 MG/DL IS CONSISTENT WITH IMPAIRED FASTING GLUCOSE. FASTING GLUCOSE >125 MG/DL IS CONSISTENT WITH DIABETES. RANDOM GLUCOSE >200 MG/DL WITH HYPERGLYCEMIC SYMPTOMS IS CONSISTENT WITH DIABETES. PER ADA GUIDELINES BUN 22 6 - 24 MG/DL 08/17/2024 9:35 AM [facility] CREATININE S/P/B 0.99 0.55 - 1.02 MG/DL 08/17/2024 9:35 AM [facility] CALCIUM S/P/B 9.1 8.4 - 10.5 MG/DL 08/17/2024 9:35 AM [facility] BILIRUBIN TOTAL S/P/B 0.4 0.2 - 1.0 MG/DL 08/17/2024 9:35 AM [facility] Comment: THIS ASSAY IS NOT RECOMMENDED FOR PATIENTS UNDERGOING TREATMENT WITH ELTROMBOPAG DUE TO THE POTENTIAL FOR FALSELY ELEVATED RESULTS. ALKALINE PHOSPHATASE S/P/B 23(L) 52 - 144 U/L 08/17/2024 9:35 AM [facility] AST 36 15 - 37 U/L 08/17/2024 9:35 AM [facility] ALT 38 14 - 59 U/L 08/17/2024 9:35 AM [facility] TOTAL PROTEIN S/P/B 7.7 6.4 - 8.2 G/DL 08/17/2024 9:35 AM [facility] ALBUMIN S/P/B 3.4 3.4 - 5.0 G/DL 08/17/2024 9:35 AM [facility] ANION GAP 13.1 5.0 - 15.0 MMOL/L 08/17/2024 9:35 AM [facility] OSMOLALITY (CALC) 295 MOSM/KG 025 9:35 AM [facility] Comment:REFERENCE RANGE NOT ESTABLISHED GFR ESTIMATE 83(L) >89 ML/MIN/1. 73 M2 08/17/2024 9:35 AM [facility] GFR NOTES GFR REFERENCE S: 08/17/2024 9:35 AM [facility] Comment: THE ESTIMATED GFR IS [...] FAILURE: <15 ml/min/1.73 m2 08/17/2024 9:15 AM BEAN WEIGHER Deshaun Kong DO LABORATORY Final Result [facility] [address] [place] [address], * (ABNORMAL) CBC W/DIFF AUTOMATED (08/17/2024 9:15 AM BEAN WEIGHER) WBC 10.77 4.00 - 10.80 x10'3/uL 08/17/2024 9:20 AM BEAN WEIGHER [facility] RBC 4.91 4.10 - 5.40 x10'6/uL 08/17/2024 9:20 AM [facility] HGB 13.0 12.0 - 16.0 G/DL 08/17/2024 9:20 AM [facility] HCT 39.7 36.0 - 47.0 % 08/17/2024 9:20 AM [facility] MCV 80.9 78.0 - 100.0 FL 08/17/2024 9:20 AM [facility] MCH 26.5(L) 27.0 - 31.0 PG 08/17/2024 9:20 AM [facility] MCHC 32.7(L) 33.0 - 36.0 G/DL 08/17/2024 9:20 AM [facility] RDW 14.6(H) 11.5 - 14.5 % 08/17/2024 9:20 AM [facility] PLT 303 150 - 350 x10'3/uL 08/17/2024 9:20 AM [facility] MPV 9.5 7.4 - 10.4 FL 08/17/2024 9:20 AM [facility] CBC COMMENT NORMAL REFERENCE RANGE NOT ESTABLISHED FOR THE PROPORTIONAL LEUKOCYTE DIFFERENTIAL. 08/17/2024 9:20 AM [facility] NEUTROPHILS % 72.4 % 08/17/2024 9:20 AM [facility] LYMPHOCYTES % 18.8 % 08/17/2024 9:20 AM [facility] MONOCYTES % 5.5 % 08/17/2024 9:20 AM [facility] EOSINOPHILS % 2.7 % 08/17/2024 9:20 AM [facility] BASOPHILS % 0.3 % 08/17/2024 9:20 AM [facility] IMMATURE GRANS % 0.3 % 08/17/19 9:20 AM [facility] NRBC % 0.0 % 08/17/2024 9:20 AM [facility] ABS. NEUTROPHILS 7.81 1.60 - 8.30 x10'3/uL 08/17/2024 9:20 AM [facility] ABS. LYMPHOCYTES 2.02 0.80 - 4.70 x10'3/uL 08/17/2024 9:20 AM BEAN WEIGHER [facility] ABS. MONOCYTES 0.59 0.00 - 1.50 x10'3/uL 08/17/2024 9:20 AM BEAN WEIGHER [facility] ABS. EOSINOPHILS 0.29 0.00 - 0.40 x10'3/uL 08/17/2024 9:20 AM BEAN WEIGHER [facility] ABS. BASOPHILS 0.03 0.00 - 0.20 x10'3/uL 08/17/2024 9:20 AM BEAN WEIGHER [facility] ABS. IMMATURE GRANULOCYTES 0.03 0.00 - 0.03 x10'3/uL 08/17/2024 9:20 AM BEAN WEIGHER [facility] ABS. NUCLEATED RBC'S 0.00 0.00 - 0.01 x10'3/uL 08/17/2024 9:20 AM BEAN WEIGHER [facility] 08/17/2024 9:15 AM BEAN WEIGHER Deshaun Kong DO LABORATORY Final Result [id number] [place] [address], * LIPASE (08/17/2024 9:15 AM BEAN WEIGHER) LIPASE 21 16 - 77 UNITS/L 08/17/2024 9:35 AM BEAN WEIGHER [facility] 08/17/2024 9:15 AM BEAN WEIGHER [facility] Luann GOETZ LABORATORY Final Result [address] [address] [place] [address], * XR CHEST PA+LAT (06/29/2024 5:50 PM BEAN WEIGHER) Anatomical Region Laterality Modality Chest Radiographic Caroline ging 06/29/2024 5:50 PM BEAN WEIGHER Impressions 06/29/2024 5:55 PM BEAN WEIGHER Impression: No acute findings. Referred By: Interpreted By: Jose May MD, 06/29/2024 5:50 PM Narrative 06/29/2024 5:55 PM BEAN WEIGHER [place] [id number] Examination: Chest 2 View History: Cough DATE/TIME: 06/29/2024 5:50 PM Comparison: 02/02/2023 Technique: PA and lateral views were obtained. Findings: Heart size, mediastinal contours and pulmonary vasculature are within normal limits. No pulmonary consolidation, pleural effusion or pneumothorax. No acute osseous abnormality. Procedure Note Jose May MD - 06/29/2024 [place] [id number] Examination: Chest 2 View History: Cough DATE/TIME: [...] lt * POCT urine (06/29/2024 5:09 PM BEAN WEIGHER) Pathologist [facility] URINE HCG TEST NEGATIVE Internal Control: VALID [place] POINT OF CARE TEST ORDERAB LES Final Result * CORONAVIRUS (COVID 19) (06/29/2024 5:02 PM BEAN WEIGHER) Pathologist [facility] CORONAVIRUS SARS COV 2 RNA NEGATIVE NEGATIVE 06/29/2024 6:[address] [facility] Comment: NEGATIVE RESULTS DO NOT RULE [...] SARS-COV-2. SPECIMEN TYPE NASAL 06/29/2024 5:[address] [facility] NASAL STRUCTURE / Unknown 06/29/2024 5:02 PM BEAN WEIGHER [place] MICROBIOLOGY - GENERAL ORD ERABLES Final Result Performing Organization Address City/[facility] Co de Phone Number [facility] [address] [place] [address], [place] [phone] * (ABNORMAL) INFLUENZA A & B, RAPID (06/29/2024 5:02 PM BEAN WEIGHER) [facility] SPECIMEN TYPE NASAL 06/29/2024 5:[address] [facility] INFLUENZA A POSITIVE(A) NEGATIVE 06/29/2024 6:[address] [facility] INFLUENZA B NEGATIVE NEGATIVE 06/29/2024 6:[address] [facility] Comment: Interpretation: Positive for Influenza Type A. This test can not distinguish influenza A virus subtypes. For example, this test cannot distinguish influenza infections caused by novel influenza A viruses versus seasonal influenza A viruses. NASAL STRUCTURE / Unknown 06/29/2024 5:02 PM BEAN WEIGHER [place] MICROBIOLOGY - GENERAL ORD ERABLES Final Result [facility] [address] [place] [address], [place] [phone] from Last 3 Months Insurance [employer] Care Teams Lease Buyer Relationship Specialty [place] [address] [place] [address] [place] [address] PCP - General FAMILY PRACTICE 12/31/22
== END 2024-09-18 13:40 | disposition home or self-care (01) ==
PROVIDERS: Emergency Provider Emergency Medicine
DX: R09.1 Pleurisy (principal); Z20.822 Contact with and (suspected) exposure to COVID-19
CPT/HCPCS: 71046; 87637; 96372; 99283; J1885